=== PATIENT | female | born 1965 | race Caucasian/White ===

== ENCOUNTER 2016-12-07 12:47 | Emergency (ER) | payer MEDICAID | END 2016-12-07 20:20 | disposition home or self-care (01) | LOC: D.ER 12:47 | DX: S46.912A Strain of unspecified muscle, fascia and tendon at shoulder and upper arm level, left arm, initial encounter (principal); X58.XXXA Exposure to other specified factors, initial encounter; Y93.89 Activity, other specified; Y92.89 Other specified places as the place of occurrence of the external cause; F41.9 Anxiety disorder, unspecified; G89.29 Other chronic pain; I10 Essential (primary) hypertension ==

== ENCOUNTER 2017-08-25 19:41 | Observation (INO) | payer MEDICAID ==
[2017-08-25 20:16] LABS: BASOPHILS 0.4 % (0-2); HEMATOCRIT 40.8 % (36.0-48.0); IMMATURE GRANULOCYTES 0.4 % (0-5); LYMPHOCYTES 24.1 % (15-50); MCH 32.4 pg (26.0-34.0); MCHC 34.3 g/dL (31.0-37.0); MCV 94.4 fL (80.0-100.0); MEAN PLATELET VOLUME 8.6 fL (7.4-10.4); MONOCYTES 6.1 % (2-11); RBC 4.32 10x6/uL (4.00-5.40); RDW 12.5 % (11.5-14.5); WBC 11.3 10x3/uL (4.8-10.8)
[2017-08-25 20:26] LABS: PLATELET COUNT 268 10x3/uL (130-400)
[2017-08-25 20:30] LABS: ALBUMIN 3.2 g/dL (3.4-5.0); ALKALINE PHOSPHATASE 175 U/L (46-116); ALT (SGPT) 18 U/L (10-68); BILIRUBIN - TOTAL 0.19 mg/dL (0.2-1.3); CALC OSMOLALITY 254 mosm/kg (275-300); CALCIUM 8.5 mg/dL (8.5-10.1); CARBON DIOXIDE 23.5 mmol/L (21.0-32.0); CHLORIDE - SERUM 94 mmol/L (98-107); GLUCOSE 81 mg/dL (74-106); POTASSIUM - SERUM 4.4 mmol/L (3.5-5.1); PROTEIN - SERUM 7.2 g/dL (6.4-8.2); SODIUM 128 mmol/L (136-145); UREA NITROGEN 10 mg/dL (7-18); eGFR NON AFRICAN AMERICAN 62 mL/min (90-120)
[2017-08-25 20:40] LABS: CHOL - HDL RATIO 3.1 ratio (2.3-4.1); CHOLESTEROL, TOTAL 179 mg/dL (0-200); CKMB 1.1 U/L (0.0-3.6); CREATINE KINASE 58 UL (21-215); HDL CHOLESTEROL 58 mg/dL (32-96); LDL CHOLESTEROL 105 mg/dL (0-100); LDL-HDL RATIO 1.8 ratio (1.5-3.5); TRIGLYCERIDE 82 mg/dL (30-200)
[2017-08-25 20:42] LABS: TROPONIN-I < 0.017 ng/mL (0.000-0.060)
[2017-08-25] MEDS ORDERED: VALIUM5 MG PO (23:10)
[2017-08-25] MEDS ORDERED: NEURONTIN600 MG PO (23:11)
[2017-08-25] MEDS ORDERED: REMERON30 MG PO (23:11)
[2017-08-25] MEDS ORDERED: MOBIC7.5 MG PO (23:12)
[2017-08-25] MEDS ORDERED: PHENERGAN25 M1 (23:12)
[2017-08-25] MEDS ORDERED: ZYLOPRIM100 MG PO (23:13)
[2017-08-25] MEDS ORDERED: AMITRIPTYLINE100 MG PO (23:14)
[2017-08-25] MEDS ORDERED: BUSPAR10 MG PO (23:14)
[2017-08-25] MEDS ORDERED: HYSINGLA ER30 MG PO (23:15)
--- NOTE | 2017-08-25 23:33 | NUR ---
RECEIVED REPORT FROM SHERRILL IN ER, PT RECEIVED VIA WHEELCHAIR, TELEMTRY IS ON, IV-LAC, ADMISSION COMPLETE, MEDS REVIEWED, BED IS LOW, SRX2, CALL LIGHT IN REACH, WILL CONTINUE PLAN OF CARE
[2017-08-26] VITALS (7 sets, daily range): BP systolic 92–122; BP diastolic 72–75; BMI 28.9
--- NOTE | 2017-08-26 03:26 | NUR ---
PT SLEEPING, BED IS LOW,SRX2, CALL LIGHT IN REACH, WILL CONTINUE PLAN OF CARE
--- NOTE | 2017-08-26 07:21 | NUR ---
AM ROUNDS- PT IN BED, WITH EYES CLOSED, AROUSES EASILY. RESP EVEN AND REGULAR, PT DENIES ANY NEEDS AT THIS TIME. LT AC SL, BED LOW AND WHEELS LOCKED, BEDSIDE RAILS X2, CALL LIGHT IN REACH, NAD NOTED, WILL CONTINUE TO MONITOR.
--- NOTE | 2017-08-26 10:45 | NUR ---
PT CALLED INTO ROOM ASKING WHEN SHE WAS GOING TO GET HER HOME MEDICATIONS, AND THAT DR. GARNER HAD TOLD HER THIS AM THAT HE WAS GOING TO ORDER IV FLUIDS BECAUSE SHE WAS TOO DRY. INFOMRED PT THAT I HAD NO ORDERS TO GIVE HOME MEDICATIONS OR FOR IV FLUIDS THAT I WOULD CALL DR. GARNER AND CHECK TO SEE WHAT HE WANTED PT TO HAVE. 1050- CALLED DR. GARNER AND INFORMED HIM THAT PT WANTED TO KNOW IF HE WAS GOING TO START HOME MEDS AND GIVE HER IV FLUIDS. DR. GARNER STATED THAT HE WOULD PUT ORDERS IN.
--- NOTE | 2017-08-26 10:48 | NUR ---
ADMINISTERED 2MG OF MORPHINE FOR PAIN LEVEL OF 8/10. PT DENIES ANY OTHER NEEDS AT THIS TIME. CALL LIGHT IN REACH, NAD NOTED, WILL CONTINUE TO MONITOR.
--- NOTE | 2017-08-26 11:53 | NUR ---
IVFS HUNG AT THIS TIME. TO INFUSE AT 100ML/HR. PT STILL WANTING TO KNOW ABOUT HOME MEDS. INFORMED PT THAT DR. GARNER HAS NOT RESTARTED THEM YET, THAT HE ONLY ORDERED IVF AND NORCO QID. PT DENIES ANY OTHER NEEDS AT THIS TIME. CALL LIGHT IN REACH, ROSE SOUZA, WILL CONTINUE TO MONITOR.
--- NOTE | 2017-08-26 16:36 | NUR ---
NORCO GIVEN SCHEDULED. PT DENIES ANY OTHER NEEDS AT THIS TIME. CALL LIGHT IN REACH, NAD NOTED, WILL CONTINUE TO MONITOR.
--- NOTE | 2017-08-26 20:00 | NUR ---
PT RESTING IN BED. ALERT/ORIENTED. HAS BEEN WASHING SELF OFF AND IS NOW VERY TIRED. PIV TO LEFT A/C WITH NS @ 100ML/HR INFUSING. SR PER TELEMETRY. CPOC.
--- NOTE | 2017-08-26 20:42 | NUR ---
PT HAS BEEN UP AND WASHED HERSELF OFF IN BATHROOM. TELEMTRY IN PLACE.
[2017-08-27] VITALS: BP 103/61
--- NOTE | 2017-08-27 03:34 | NUR ---
PT HAS ACCIDENTALLY PULLED OUT HER IV. SHE IS ALSO WANTING SOMETHING FOR PAIN, BUT HER NORCO IS SCHEDULED QID. ABLE TO RESITE 22G TO LFA AND RESUME IVF OF NS @ 100ML/HR. ADMINISTERED MORPHINE 2MG SIVP FOR PAIN/DISCOMFORT. ENCOURAGED TO REST NOW. CALL LIGHT IN REACH.
[2017-08-27 04:00] VITALS: BP 129/91
--- NOTE | 2017-08-27 07:35 | NUR ---
RECEIVED PT IN BED EYES CLOSED RESP UNLABORED NAD NOTED
[2017-08-27 09:05] VITALS: BP 107/82
[2017-08-27 12:16] VITALS: BP 109/78
[2017-08-27 15:25] VITALS: BP 112/74
[2017-08-27 19:00] VITALS: BP 119/79
--- NOTE | 2017-08-27 19:10 | NUR ---
ROUNDING NOTE: PT AWAKE AND ALERT SITTING UP IN BED AT START OF SHIFT. PT HAS NS RUNNING AT 100CC/HR TO LEFT FOREARM IV SITE. ON TELE, PT REMAINS IN NSR. PT IS REQUESTING TO RECEIVE PAIN MEDS THROUGHOUT THE NIGHT. WE DISCUSSED HER CURRENT PRN PAIN MED ORDERS. WILL CONT TO MONITOR.
[2017-08-28 04:00] VITALS: BP 122/75
--- NOTE | 2017-08-28 07:16 | NUR ---
pt laying to left side sleeping arrouses easily denies needs will cont to monitor
--- NOTE | 2017-08-28 07:30 | NUR ---
PT W/ EMESIS X1 AFTER RECEIVING IV MORPHINE. PT GIVEN EMESIS BAGS AND CLEANED UP. SHE STATED THAT THE NAUSEA PASSED QUICKLY AND SHE FEELS MUCH BETTER NOW. WILL PASS ON TO DAY NURSE TO CONT TO MONITOR.
[2017-08-28 08:16] VITALS: BP 141/89
[2017-08-28] MEDS ORDERED: AMITRIPTYLINE100 MG PO (09:07)
[2017-08-28] MEDS ORDERED: PHENERGAN25 M1 PO (09:07)
[2017-08-28] MEDS ORDERED: VALIUM5 MG PO (09:07)
[2017-08-28] MEDS ORDERED: MOBIC7.5 MG PO (09:08)
[2017-08-28] MEDS ORDERED: HYSINGLA ER30 MG PO (09:08)
[2017-08-28] MEDS ORDERED: REMERON30 MG PO (09:08)
[2017-08-28] MEDS ORDERED: NEURONTIN600 MG PO (09:08)
[2017-08-28] MEDS ORDERED: BUSPAR10 MG PO (09:08)
[2017-08-28] MEDS ORDERED: ZYLOPRIM100 MG PO (09:08)
--- NOTE | 2017-08-28 11:11 | NUR ---
Patient Name: JUSTIN MILLAN Admission Status: ER Accout number: [id number] Admission Date: 08-25-2017 : 1965 Admission Diagnosis: Attending: DEBRA GARNER Current LOS: 3 Anticipated DC Date: 08-28-2017 Planned Disposition: Home Primary Insurance: MEDICAID [place] Discharge Planning Comments: * Is the patient Alert and Oriented? Yes 0 * How many steps to enter\exit or inside your home? RAMP 0 * PCP DR. CARVAJAL 0 * Pharmacy [facility] [address] * Preadmission Environment Home Alone 0 * ADLs Independent 0 * Equipment Rolling Walker 0 * Other Equipment UNKNOWN MEDICAL EQUIPMENT PROVIDER 0 * List name and contact numbers for known caregivers / representatives who currently or will assist patient after discharge: JUSTIN CHAMBERS, MOTHER, 0 * Community resources currently utilized None 0 * Please name any agencies selected above. NONE 0 * Additional services required to return to the preadmission environment? No 0 * Can the patient safely return to the preadmission environment? Yes 0 * Has this patient been hospitalized within the prior 30 days at any hospital? No 0 CM SPOKE TO APPAREL RENTAL CLERK WHO INFORMED CM THAT PT IS HAVING TROUBLE CONTACTING FAMILY FOR TRANSPORTATION HOME. CM MET WITH PT IN ROOM TO DISCUSS DISCHARGE PLANNING AND NEEDS. PT REPORTS LIVING AT HOME INDEPENDENTLY AND ALONE. PT HAS ROLLING WALKER AT HOME THAT SHE USES OCCAISIONALLY, HER MEDICAL EQUIPMENT PROVIDER IS UNKNOWN, PT REPORTS HER MOTHER HAS THOSE NUMBERS FOR HER. PT HAD A CANE BUT IT WAS LOST AT [facility]. PT HAS NOT DISCUSSED GETTING ANOTHER ONE WITH HER DOCTOR. PT HAS NO OUTSIDE SERVICES ASSISTING IN THE HOME. CM DISCUSSED AVAILABILITY OF HOME HEALTH, REHAB SERVICES AND MEDICAL EQUIPMENT. PT DENIES DISCHARGE NEEDS OTHER THAN WANTING CM TO CALL DR. CARVAJAL AND ASK HIM TO KEEP HER ANOTHER NIGHT. CM INFORMED PT THAT THE DOCTOR WAS CONTACTED TODAY AND HE PROVIDED THE DISCHARGE ORDERS. PT ASKED CM TO PROVIDE HER PAIN MEDICATIONS TO TAKE HOME. CM INFORMED PT THAT IS NOT A SERVICE THE HOSPITAL PROVIDES AND PT WILL NEED TO VEHICLE MAINTENANCE SUPERVISOR HER PRESCRITIONS FROM HER PHARMACY. PT REPORTS BEING ON SOCIAL SECURITY DISABILITY AND SHE CANNOT REACH HER MOTHER, THAT THE PHONE RINGS AND RINGS. PT WAS TRYING TO USE THE ROOM PHONE; CM ADVISED THAT THE ROOM PHONE IS NOT EQUIPPED TO DIAL LONG DISTANCE AND OFFERED TO CALL FROM PHONE. PT ACCEPTED, CM CALLED PT'S MOTHER, JUSTIN CHAMBERS, , LEFT MESSAGE ASKING FOR JUSTIN TO CALL PT IN ROOM PT REPORTS HER PERSONAL I-PHONE IS NOT CHARGED, OR TO CALL CM BACK. CM DISCUSSED TRANSPORTATION BY [employer]. PT REPORTS SHE HAS NEVER TAKEN THE BUS AND DOES NOT WANT TO SIT FOR HOURS ON THE BUS. PT WANTS THE HOSPITAL TO PROVIDE A TAXI FOR HER HAS BEEN DONE IN THE PAST. CM ASKED WHEN THIS WAS DONE, PT REPORTS [facility] GAVE HER A TAXI HOME. CM EXPLAINED THAT THE HOSPITAL HAS VERY LIMITED RESOUCES AND WOULD NOT BE PROVIDING TAXI TRANSPORT. PT REPORTS KNOWING TAXI TRANSPORTATION TO BE EXPENSIVE. CM ASKED PT ABOUT HER PERSONAL SUPPORT SYSTEMS, PT REPORTS HAVING THREE FRIENDS THAT SHE DOES NOT HAVE ACCESS TO THE NUMBERS HERE BECAUSE HER PHONE IS NOT CHARGED. PT THEN REPORTED THAT HER PHONE CUT OFF OPERATOR SCORER AT HOME IS BROKE BUT SHE HAS ANOTHER PHONE BUT WILL HAVE TO BUY MINUTES TO USE IT. CM ASKED PT IS SHE IS QUALIFIED TO USE THE MEDICAID TRANSPORTATION, PT STATES THAT SHE IS. PT KNOWS IT TAKES 48 HOUR NOTICE TO ARRANGE [email or web address] BUS AND WOULD LIKE CM TO CALL HER MOTHER FIRST AND IF CM CANNOT REACH HER MOTHER, THEN CALL [facility] TO SEE IF THEY CAN TAKE HER HOME. CM WILL WAIT A FEW MINUTES FOR RETURN CALL FROM PT'S MOTHER; IF NO CALL IS RECEIVED, CM WILL CALL MEDICAID TRANSPORT TO ARRANGE TRANSPORTATION HOME. Physician Office Rep: Lenin Marx
[2017-08-28 11:45] VITALS: BP 151/85
--- NOTE | 2017-08-28 11:59 | NUR ---
PT SISTER CALLED AND SAID THAT SHE IS UNABLE TO PICK PT UP BUT SHE WILL BE CALLING AROUND TO FIND SOMEONE TO COME PICK PT UP ADN TAKE HER HOME
--- NOTE | 2017-08-28 13:46 | NUR ---
Patient Name: JUSTIN MILLAN Encounter No: [id number] : 1965 Primary Insurance: MEDICAID [place] Anticipated DC Date: 08-28-2017 Planned Disposition: Home DCP follow-up note: CM RECEIVED TELEPHONE MESSAGE FROM PERSON REPORTING TO BE PT'S SISTER WHO WILL CALL PT IN ROOM TO ARRANGE TRANSPORTATION HOME. CM MET WITH PT WHO REPORTS SHE HAS A SISTER IN [place] AND A SISTER IN [place]; PT REPORTS SHE HAS TALKED TO HER MOTHER AND PT'S OLDER SISTER WILL BE PICKING HER UP TODAY. PT DENIES NEED OF [place] MEDICAID TRANSPORTATION OR OTHER ASSISTANCE AT THIS TIME. CM LEFT PT CM CONTACT INFORMATION. ASSISTANT SCIENTIST NURSE NOTIFIED. Lenin Marx, CASE MANAGEMENT
--- NOTE | 2017-08-28 13:53 | NUR ---
PT STILL WAITING ON A RIDE TO COME PICK HER UP
--- NOTE | 2017-08-28 14:42 | NUR ---
PT STATES HER SISTER WILL BE HERE TO PICK HER UP IN 30 MINS-1 HOUR. WENT OVER DC PAPERWORK WITH PT PT VERBALIZES UNDERSTANDING. DC PIV WITH CATH TIP INTACT. DC TELE AND RETURNED TO TAX EVALUATOR. PT WILL CALL WHEN SHE IS READY TO COME BACK
--- NOTE | 2017-08-28 15:47 | NUR ---
PT SAYS HER RIDE IS DOWN STAIRS WAITING FOR HER. VOLUNTEER CAME UP TO WHEEL PT DOWN STAIRS. I DIDNT CALL FOR THEM TO COME GET HER, PT STATES THAT HER SISTER IS DOWNSTAIRS . VOLUNTEER WHEELED PT OUT TO FRONT ENTRANCE.
== END 2017-08-28 16:28 | disposition home or self-care (01) ==
LOC: D.ER 19:41 → OBSVTIME 22:12 → D.M2 22:12
PROVIDERS: Family Medicine; ADMIT Legal Medicine
DX: K52.9 Noninfective gastroenteritis and colitis, unspecified (principal); R07.9 Chest pain, unspecified; Z86.73 Personal history of transient ischemic attack (TIA), and cerebral infarction without residual deficits; F41.9 Anxiety disorder, unspecified; F32.9 Major depressive disorder, single episode, unspecified; Z72.0 Tobacco use

== ENCOUNTER 2017-10-09 16:22 | Emergency (ER) | payer MEDICAID ==
[2017-08-26 04:20] VITALS: BMI 28.9
[~2017-10-09 16:22] MED LIST: AMITRIPTYLINE100 MG PO; BUSPAR10 MG PO; HYSINGLA ER30 MG PO; MOBIC7.5 MG PO; NEURONTIN600 MG PO; PHENERGAN25 M1; PHENERGAN25 M1 PO; REMERON30 MG PO; VALIUM5 MG PO; ZYLOPRIM100 MG PO
[2017-10-09 17:08] LABS: BASOPHILS 0.2 % (0-2); EOSINOPHILS 0.6 % (0-7); HEMATOCRIT 35.3 % (36.0-48.0); HEMOGLOBIN 12.2 g/dL (12-16); IMMATURE GRANULOCYTES 0.2 % (0-5); LYMPHOCYTES 21.6 % (15-50); MCH 32.5 pg (26.0-34.0); MCHC 34.6 g/dL (31.0-37.0); MCV 94.1 fL (80.0-100.0); MEAN PLATELET VOLUME 8.6 fL (7.4-10.4); NEUTROPHILS 70.4 % (40-80); PLATELET COUNT 242 10x3/uL (130-400); RBC 3.75 10x6/uL (4.00-5.40); RDW 12.5 % (11.5-14.5); WBC 6.4 10x3/uL (4.8-10.8)
[2017-10-09 17:38] LABS: ALBUMIN 2.8 g/dL (3.4-5.0); ALKALINE PHOSPHATASE 166 U/L (46-116); ALT (SGPT) 17 U/L (10-68); BILIRUBIN - TOTAL 0.17 mg/dL (0.2-1.3); CALC OSMOLALITY 254 mosm/kg (275-300); CALCIUM 8.2 mg/dL (8.5-10.1); CARBON DIOXIDE 26.9 mmol/L (21.0-32.0); CHLORIDE - SERUM 96 mmol/L (98-107); CREATININE - SERUM 0.8 mg/dL (0.6-1.3); GLUCOSE 86 mg/dL (74-106); POTASSIUM - SERUM 4.8 mmol/L (3.5-5.1); PROTEIN - SERUM 6.3 g/dL (6.4-8.2); SODIUM 128 mmol/L (136-145); UREA NITROGEN 11 mg/dL (7-18); eGFR NON AFRICAN AMERICAN 80 mL/min (90-120)
== END 2017-10-09 18:19 | disposition home or self-care (01) ==
LOC: D.ER 16:22
PROVIDERS: Emergency Medicine
DX: R10.9 Unspecified abdominal pain (principal); Z91.81 History of falling; F17.200 Nicotine dependence, unspecified, uncomplicated

== ENCOUNTER 2017-10-14 10:40 | Emergency (ER) | payer MEDICAID ==
[2017-08-26 04:20] VITALS: BMI 28.9
[2017-10-14 13:10] LABS: BASOPHILS 0.3 % (0-2); EOSINOPHILS 0.5 % (0-7); IMMATURE GRANULOCYTES 0.3 % (0-5); LYMPHOCYTES 26.9 % (15-50); MCH 32.9 pg (26.0-34.0); MCHC 34.1 g/dL (31.0-37.0); MCV 96.5 fL (80.0-100.0); MEAN PLATELET VOLUME 8.6 fL (7.4-10.4); MONOCYTES 5.6 % (2-11); NEUTROPHILS 66.4 % (40-80); PLATELET COUNT 273 10x3/uL (130-400); RBC 4.25 10x6/uL (4.00-5.40); RDW 12.5 % (11.5-14.5); WBC 7.4 10x3/uL (4.8-10.8)
[2017-10-14 13:32] LABS: ALBUMIN 3.3 g/dL (3.4-5.0); ALKALINE PHOSPHATASE 175 U/L (46-116); ALT (SGPT) 19 U/L (10-68); BILIRUBIN - TOTAL 0.32 mg/dL (0.2-1.3); CALC OSMOLALITY 263 mosm/kg (275-300); CALCIUM 8.9 mg/dL (8.5-10.1); CHLORIDE - SERUM 96 mmol/L (98-107); CREATININE - SERUM 0.9 mg/dL (0.6-1.3); GLUCOSE 97 mg/dL (74-106); POTASSIUM - SERUM 4.8 mmol/L (3.5-5.1); PROTEIN - SERUM 7.4 g/dL (6.4-8.2); SODIUM 132 mmol/L (136-145); UREA NITROGEN 10 mg/dL (7-18); eGFR NON AFRICAN AMERICAN 70 mL/min (90-120)
[2017-10-14 13:37] LABS: TROPONIN-I < 0.017 ng/mL (0.000-0.060)
== END 2017-10-14 16:52 | disposition home or self-care (01) ==
LOC: D.ER 10:40
PROVIDERS: Physician Assistant
DX: M54.12 Radiculopathy, cervical region (principal); R07.9 Chest pain, unspecified; R11.0 Nausea; R05 Cough; F17.200 Nicotine dependence, unspecified, uncomplicated

== ENCOUNTER 2017-10-15 17:47 | Inpatient (IN) | payer MEDICAID ==
[~2017-10-15] VITALS: Ht 172.7 cm; Wt 90.5 kg
[2017-10-15 18:45] LABS: APPEARANCE CLEAR (CLEAR); BILIRUBIN NEGATIVE (NEGATIVE); COLOR YELLOW (YELLOW); GLUCOSE NEGATIVE (NEGATIVE); KETONE NEGATIVE (NEGATIVE); NITRITE NEGATIVE (NEGATIVE); PROTEIN NEGATIVE (NEGATIVE); UROBILINOGEN NORMAL (NORMAL)
[2017-10-15 19:37] LABS: BASOPHILS 0.2 % (0-2); EOSINOPHILS 0.5 % (0-7); HEMATOCRIT 37.8 % (36.0-48.0); IMMATURE GRANULOCYTES 0.1 % (0-5); LYMPHOCYTES 24.7 % (15-50); MCH 32.8 pg (26.0-34.0); MCHC 34.4 g/dL (31.0-37.0); MCV 95.5 fL (80.0-100.0); MEAN PLATELET VOLUME 8.7 fL (7.4-10.4); MONOCYTES 5.3 % (2-11); NEUTROPHILS 69.2 % (40-80); PLATELET COUNT 257 10x3/uL (130-400); RBC 3.96 10x6/uL (4.00-5.40); RDW 12.2 % (11.5-14.5); WBC 8.1 10x3/uL (4.8-10.8)
[2017-10-15 19:56] LABS: INR 0.96 (0.85-1.17); PROTIME 12.7 SECONDS (11.6-15.0)
[2017-10-15 21:17] LABS: ALBUMIN 3.2 g/dL (3.4-5.0); BILIRUBIN - TOTAL 0.25 mg/dL (0.2-1.3); CALCIUM 8.5 mg/dL (8.5-10.1); CARBON DIOXIDE 20.9 mmol/L (21.0-32.0); PROTEIN - SERUM 6.6 g/dL (6.4-8.2)
[2017-10-15 21:18] LABS: ANION GAP 17.9 mmol/L (8-16); POTASSIUM - SERUM 3.8 mmol/L (3.5-5.1)
--- NOTE | 2017-10-15 23:15 | NUR ---
PT ARRIVES TO THE FLOOR VIA WC FROM ER ACCOMPANIED BY ER NURSE. ASSISTED IN TO BED. PT C/O NAUSEA ON ARRIVAL. VSS, AFEBRILE. BOWEL SOUNDS HYPOACTIVE X4. PT REPORTS PASSING FLATUS TODAY. LEFT WRIST WITH NS @ 100 ML/HR INFUSING THROUGH 20 GA ANGIOCATH. SITE CDI AND APPEARS WNL. ADMISSION ASSESSMENT AND HISTORY COMPLETED. MEDICATIONS RECONCILED AT THE BEDSIDE. POC DISCUSSED WITH PT, SHE HAS VERBALIZED UNDERSTANDING. INSTRUCTED ON NPO STATUS. PT WITHOUT NGT FROM ER. PT STATES 2 NURSES TRIED SEVERAL TIMES IN THE ER TO PLACE NGT WITHOUT SUCCESS. REPORTS HER NOSE IS TENDER AND BLEEDING AND DOES NOT WANT TO ALLOW ANOTHER ATTEMPT AT THIS TIME. COMPLIED WITH THE PT'S WISHES. SENIOR CLINICAL DATA COORDINATOR NOTIFIED TO COME OVER RIDE MEDICATIONS. WILL CONT TO FOLLOW WITH ORDERS FOR ENEMAS.
[2017-10-15 23:41] VITALS: BMI 28.4
--- NOTE | 2017-10-16 00:30 | NUR ---
PT GIVEN 1500 ML WARM SOAP SUDS ENEMA. PT ABLE TO HOLD ALL 1500 ML IN FOR 15 MIN. ASSISTED TO BR - CLEAR BROWN TINGED FLUID EXPELLED. PT STATES PASSING FLATUS AT HOME INSULATION PACKER AND WHILE IN THE BATHROOM. PT GIVEN MAG CITRATE AND DULCOLAX TABS ORDERED. WILL MONITOR.
[2017-10-16 00:45] VITALS: BP 99/64
--- NOTE | 2017-10-16 02:50 | NUR ---
PT ARRIVES TO FLOOR VIA STRETCHER ACCOMPANIED BY NURSE. ADMISSION ASSESSMENT AND HISTORY OBTAINED. VS, AFEBRILE. RESP EVEN UNLABORED. O2 2LPM NC, SATS 94%. PT IS ALERT AND ORIENTED X4. C/O GENERALIZED WEAKNESS. INSTRUCTED TO CALL FOR NURSING STAFF BEFORE GETTING OOB AND VERBALIZES UNDERSTANDING. VALERA TO BSD, DRAINS ADEQUATE AMOUNT CLEAR YELLOW URINE. IV TO LEFT HAND WITH NS @ 75 ML/HR. NO NEEDS VOICED. DENIES ANY C/O PAIN. CALL LIGHT PLACED WITHIN REACH. WILL CONT TO MONITOR.
[2017-10-16 05:09] LABS: BASOPHILS 0.2 % (0-2); EOSINOPHILS 0.5 % (0-7); HEMATOCRIT 38.7 % (36.0-48.0); IMMATURE GRANULOCYTES 0.3 % (0-5); LYMPHOCYTES 24.8 % (15-50); MCH 32.2 pg (26.0-34.0); MCHC 33.6 g/dL (31.0-37.0); MCV 95.8 fL (80.0-100.0); MEAN PLATELET VOLUME 8.7 fL (7.4-10.4); MONOCYTES 6.2 % (2-11); PLATELET COUNT 293 10x3/uL (130-400); RBC 4.04 10x6/uL (4.00-5.40); RDW 12.3 % (11.5-14.5)
[2017-10-16 05:11] VITALS: BP 87/60
[2017-10-16 05:18] LABS: CALCIUM 8.7 mg/dL (8.5-10.1); CHLORIDE - SERUM 91 mmol/L (98-107); CREATININE - SERUM 0.8 mg/dL (0.6-1.3); SODIUM 127 mmol/L (136-145); UREA NITROGEN 7 mg/dL (7-18); eGFR NON AFRICAN AMERICAN 80 mL/min (90-120)
[2017-10-16 05:23] LABS: CALC OSMOLALITY 252 mosm/kg (275-300); CARBON DIOXIDE 27.4 mmol/L (21.0-32.0); GLUCOSE 101 mg/dL (74-106); POTASSIUM - SERUM 4.8 mmol/L (3.5-5.1)
--- NOTE | 2017-10-16 05:49 | NUR ---
PT C/O PAIN TO BLE, STATES HER LEGS ARE ACHING AND CRAMPING. STATES SHE TAKES PAIN MEDS AT HOME FOR THIS. PT BP 87/60 - RECHECKED MANUALLY AND BP 90/58. EXPLAINED TO PT HER BP WAS TOO LOW FOR IV MORPHINE, PT CRYING. REPEATEDLY STATES "I AM SO HUNGRY". EXPLAINED TO PT SHE IS NPO D/T POSSIBLE ILEUS. PT STATES "I HAVENT EATEN ANYTHING IN DAYS". EXPLAINED TO PT THAT SHE HAD TO BE SEEN BY HER PHYSICIAN BEFORE I CAN GIVE HER ANYTHING ELSE TO EAT. PT VERBALIZED UNDERSTANDING.
--- NOTE | 2017-10-16 07:15 | NUR ---
REPORT RECEIVED. PT REQUESTING TO EAT. EXPLAINED TO PT THAT THE MD WILL HAVE TO ROUND AND SEE HER PRIOR TO HER BEING ABLE TO EAT. VERBALIZED UNDERSTANDING. RR EVEN AND UNLABORED, WILL CTM.
[2017-10-16 08:15] VITALS: BP 197/65
--- NOTE | 2017-10-16 10:30 | NUR ---
PT REQUESTING PRN PAIN MEDS. WILL GIVE AND CTM. PT ALSO REQUESTING NICOTINE PATCH. WILL CALL PHYSICAN FOR ORDERS.
[2017-10-16 12:14] VITALS: BP 96/43
[2017-10-16 14:27] VITALS: Ht 172.7 cm; Wt 90.5 kg
[2017-10-16 16:02] VITALS: BP 90/57
--- NOTE | 2017-10-16 19:23 | NUR ---
PT IN BED RESTING QUEITLY WITH EYES CLOSED. BREATHING EVEN AND UNLABORED. BED RAILS UP X2. BED IN LOW POSITION, CALL LIGHT WITHIN REACH.
--- NOTE | 2017-10-16 21:03 | NUR ---
PT C/O PAIN AND REQUESTED PAIN MEDICATION. PRN MORPHINE 4 MG GIVEN IV PER EMAR. PHENEGRAN ALSO GIVEN WITH MORPHINE PT STATES SHE OFTEN GETS AN UPSET STOMACH WHEN SHE GETS IT.
[2017-10-16 21:09] VITALS: BP 108/69
--- NOTE | 2017-10-17 01:24 | NUR ---
PT C/O PAIN. PRN MORPHINE GIVEN IV PER ORDER. BREATHING EVEN AND UNLABORED. WILL CTM.
[2017-10-17 01:59] VITALS: BP 104/71
[2017-10-17 05:54] VITALS: BP 110/72
--- NOTE | 2017-10-17 06:10 | NUR ---
PT C/O PAIN. PRN MORPHINE GIVEN ALONG WITH PRN ZOFRAN PT STATES THE MORPHINE OFTEN MAKES HER UPSET AT HER STOMACH. BREATHING EVEN AND UNLABORED. DENIES ANY OTHER NEEDS AT THIS TIME. BED IN LOW POSITION, CALL LIGHT WITHIN REACH. WILL CTM.
[2017-10-17 06:15] LABS: BASOPHILS 0.7 % (0-2); EOSINOPHILS 3.3 % (0-7); HEMATOCRIT 41.3 % (36.0-48.0); HEMOGLOBIN 13.4 g/dL (12-16); IMMATURE GRANULOCYTES 0.2 % (0-5); LYMPHOCYTES 29.2 % (15-50); MCH 32.4 pg (26.0-34.0); MCHC 32.4 g/dL (31.0-37.0); MEAN PLATELET VOLUME 8.8 fL (7.4-10.4); MONOCYTES 9.8 % (2-11); NEUTROPHILS 56.8 % (40-80); PLATELET COUNT 263 10x3/uL (130-400); RBC 4.13 10x6/uL (4.00-5.40); RDW 12.6 % (11.5-14.5); WBC 4.5 10x3/uL (4.8-10.8)
[2017-10-17 06:30] LABS: ALBUMIN 3.1 g/dL (3.4-5.0); BILIRUBIN - TOTAL 0.3 mg/dL (0.2-1.3); POTASSIUM - SERUM 4.7 mmol/L (3.5-5.1)
[2017-10-17 06:34] LABS: ANION GAP 7.4 mmol/L (8-16); CARBON DIOXIDE 35.3 mmol/L (21.0-32.0)
--- NOTE | 2017-10-17 07:15 | NUR ---
MORNING ROUNDS MADE. PATIENT LAYING IN BED WITH EYES CLOSED, BUT AROUSED EASILY WHEN SPOKEN TO. COMPLAINS OF "BEDSORES" HURTING. ASSESSED BOTTOM AND SHE HAS ONE SMALL RED AREA NEAR RIGHT GLUTEAL FOLD AND ONE SMALL GRAYISH/BROWN AREA BELOW LEFT GLUTEAL FOLD. COMPLAINS OF BACK AND STOMACH PAIN. ADVISED SHE ISN'T DUE FOR MORPHINE UNTIL 0900, SHE VOICED UNDERSTANDING. WILL CONTINUE TO MONITOR. CPOC.
--- NOTE | 2017-10-17 07:30 | NUR ---
AM ROUNDS. PT RESTING QUIELTY, RR EVEN AND UNLABORED. PT DENIES NEEDS AT THIS TIME.
[2017-10-17 07:55] VITALS: BP 94/58
--- NOTE | 2017-10-17 08:45 | NUR ---
PATIENT LAYING IN BED. MEDS GIVEN WITHOUT PROBLEMS. MORPHINE GIVEN. EXPLAINED TO PATIENT SHE ISN'T DUE FOR ZOFRAN UNTIL NOON. SHE WAS INSISTANT THAT SHE GOT IT EVERY TIME THE MORPHINE WAS GIVEN. ADVISED IF THE MORPHINE IS GIVEN Q6H, THEN SHE COULD HAVE IT TOGETHER. PATIENT WASN'T HAPPY ABOUT IT, BUT TOOK THE MORPHINE ALONE. ADVISED I WOULD BRING THE ZOFRAN WHEN IT'S DUE. SHE VOICED UNDERSTANDING. CPOC.
--- NOTE | 2017-10-17 09:15 | NUR ---
PATIENT LAYING IN BED WITH EYES CLOSED. OPEN EYES WHEN I SPOKE TO HER. STATES HER PAIN IN STILL A "9" ON 1-10 SCALE. WILL CONTINUE TO MONITOR. CPOC.
--- NOTE | 2017-10-17 11:40 | NUR ---
PATIENT LAYING IN BED WITH EYES CLOSED. CHEST RISES AND FALLS EQUALLY. SIDE RAILS UP, BED IN LOWEST POSITION, CALL LIGHT IN REACH. CPOC.
[2017-10-17 12:21] VITALS: BP 112/71
--- NOTE | 2017-10-17 12:35 | NUR ---
PATIENT LAYING IN BED WITH EYES CLOSED. SHE SPOKE WHEN SPOKEN TO. C/O PAIN IN LOWER BACK AND LEGS, "9" ON A SCALE OF 0-10. MORPHINE AND ZOFRAN GIVEN IV. WILL CONTINUE TO MONITOR. CPOC.
--- NOTE | 2017-10-17 14:26 | NUR ---
PATIENT SITTING UP IN BED, TALKING ON TELEPHONE. NO NEEDS AT THIS TIME. CPOC.
--- NOTE | 2017-10-17 15:13 | NUR ---
PATIENT LAYING IN BED. C/O HEADACHE AND BACK PAIN, "8" ON 0-10 SCALE. ADVISED SHE IS DUE FOR MORPHINE @ 1530 AND I CAN BRING IT TO HER. VOICED UNDERSTANDING. NO OTHER NEEDS AT THIS TIME. CPOC.
--- NOTE | 2017-10-17 15:17 | NUR ---
PATIENT ALSO COMPLAINS OF NAUSEA. ADVISED I WILL BRING SOME PHENERGAN ORDERED. VOICED UNDERSTANDING.
[2017-10-17 15:25] VITALS: BP 98/75
--- NOTE | 2017-10-17 15:29 | NUR ---
PATIENT SITTING UP IN BED. MORPHINE IVP AND PHENERGAN PO GIVEN. WILL CONTINUE TO MONITOR. CPOC.
--- NOTE | 2017-10-17 16:00 | NUR ---
PATIENT RESTING IN BED. STATES SHE FEELS LIKE SHE DIDN'T GET ANY MORPHINE AT AT ALL AND IS STILL HURTING, "9" ON 0-10 SCALE. ADVISED SHE RECEIVED 4MG OF MORPHINE LIKE SHE HAS EVERY THREE HOURS TODAY. SHE VOICED UNDERSTANDING AND STATES, "I BELIEVE YOU GAVE IT TO ME, I'M JUST HURTING SO BAD...". STATES THE PHENERGAN HAS HELPED HER NAUSEA. WILL CONTINUE TO MONITOR. CPOC.
--- NOTE | 2017-10-17 18:07 | NUR ---
SITTING IN BED WATCHING TV. STATES HER PAIN IS A "9" ON A 0-10 SCALE, STATES "MY BACK AND LEGS HURT SO BAD". WILL CONTINUE TO MONITOR. MEDS GIVEN WITHOUT PROBLEMS. CPOC.
--- NOTE | 2017-10-17 18:32 | NUR ---
LAYINGING IN BED WATCHING TV. STATES PAIN IS A LITTLE BETTER, "8" ON 0-10 SCALE. WILL CONTINUE TO MONITOR. CPOC.
--- NOTE | 2017-10-17 19:05 | NUR ---
END OF SHIFT ROUNDS MADE. INFORMED PATIENT THAT I WILL BE LEAVING SOON. DENIES ANY NEEDS AT THIS TIME. WILL GIVE REPORT TO NUCLEAR POWER PLANT ENGINEER.
--- NOTE | 2017-10-17 19:54 | NUR ---
PT IN BED RESTING QUIETLY WITH EYES CLOSED. BREATHING EVEN AND UNLABORED. BED IN LOW POSITION, CALL LIGHT WITHIN REACH. WILL CTM.
--- NOTE | 2017-10-17 21:24 | NUR ---
PT REFUSED HER ENEMA.
[2017-10-17 21:43] VITALS: BP 123/75
[2017-10-18 01:21] VITALS: BP 120/79
[2017-10-18 05:18] VITALS: BP 106/68
[2017-10-18 06:14] LABS: ALBUMIN 3.2 g/dL (3.4-5.0); ALKALINE PHOSPHATASE 244 U/L (46-116); ALT (SGPT) 74 U/L (10-68); CALCIUM 8.6 mg/dL (8.5-10.1); CARBON DIOXIDE 32.8 mmol/L (21.0-32.0); CHLORIDE - SERUM 94 mmol/L (98-107); CREATININE - SERUM 0.8 mg/dL (0.6-1.3); GLUCOSE 110 mg/dL (74-106); PROTEIN - SERUM 6.7 g/dL (6.4-8.2); SODIUM 132 mmol/L (136-145); eGFR NON AFRICAN AMERICAN 80 mL/min (90-120)
[2017-10-18 06:17] LABS: BASOPHILS 0.2 % (0-2); CALC OSMOLALITY 262 mosm/kg (275-300); HEMATOCRIT 39.8 % (36.0-48.0); HEMOGLOBIN 12.6 g/dL (12-16); IMMATURE GRANULOCYTES 0.2 % (0-5); LYMPHOCYTES 15.1 % (15-50); MCH 32.3 pg (26.0-34.0); MCHC 31.7 g/dL (31.0-37.0); MONOCYTES 4.9 % (2-11); NEUTROPHILS 78.6 % (40-80); PLATELET COUNT 229 10x3/uL (130-400); RDW 12.5 % (11.5-14.5); UREA NITROGEN 4 mg/dL (7-18)
[2017-10-18 06:24] LABS: MCV 102.1 fL (80.0-100.0); WBC 5.9 10x3/uL (4.8-10.8)
--- NOTE | 2017-10-18 07:49 | NUR ---
AM ROUNDING- RECEIVED REPORT FROM ENVIRONMENTAL TEST TECHNICIAN NURSE KIRSTEN. PT IS CURRENTLY LAYING IN BED ON RIGHT SIDE WITH EYES CLOSED RESTING. PT WAKES UP AND STATES "CAN I HAVE MY PAIN MEDICATION, I AM HURTING". I INFORMED PT I WILL LOOK TO SEE WHAT SHE HAS ORDERED. ON 02 AT 2L VIA NC. NO MONITOR. IV SEEN TO LEFT WRIST WITH D5LR RUNNING AT 100CC. VALERA CATHETER SEEN WITH YELLOW URINE. WILL CONTINUE TO MONITOR AND CONTINUE WITH PLAN OF CARE.
[2017-10-18 08:00] VITALS: BP 110/79
--- NOTE | 2017-10-18 09:57 | NUR ---
UPON DOING PTS MORNING MEDICATION AND DAILY SHIFT ASSESSMENT, PT REQUESTED SOMETHING FOR PAIN (MORPHINE). I INFORMED PT THAT SHE IS HERE FOR CONSTIPATION (PER FOOD AND BEVERAGE CONTROLLER NURSE PT HAS BEEN REFUSING ALL ENEMAS) THAT PAIN MEDICATION SUCH MORPHINE CAUSES CONSTIPATION DUE TO IT BEING OPIOID AND THAT SHE NEEDS TO BE LETTING STAFF (NURSE) DUE ENEMA ORDERED. PT STATES TO ME SHE WANTED TO WAIT TO DO ENEMA UNTIL SHE HAS SOME "REAL FOOD". PT ALSO REQUESTING PHENERGAN AND VALIUM AT TIME. WILL CONTINUE TO MONITOR.
--- NOTE | 2017-10-18 10:04 | NUR ---
SCDS PLACED ON PT.
[2017-10-18 12:00] VITALS: BP 125/78
--- NOTE | 2017-10-18 12:31 | NUR ---
PHARMACY CALLED AND PHARMACY STATES THEY DO NOT HAVE NON-FORMULARY THAT WAS ORDERED. ABOUT TO GIVE PT SUPPOSITORY ORDERED. WILL CONTINUE TO MONITOR.
--- NOTE | 2017-10-18 12:44 | NUR ---
UPON GIVING PT VALIUM ( REQUESTED FOR ANXIETY) AND ORDERED DUCOLAX SUPPOSITORY, PT HAD BEEN INCONTINENT OF BOWEL (BEFORE SUPPOSITORY). CLEANED PT UP AND WENT AHEAD AND GAVE SUPPOSITORY ORDERED. WILL CONTINUE TO MONITOR.
--- NOTE | 2017-10-18 14:20 | NUR ---
UPON WALKING THROUGH WHEELER, PT STATES SHE NEEDS ASSISTANCE. PT IS STANDING BY SIDE OF BED STATING SHE HAD BAD DREAM AND GOT OOB. PT IS INCONTINENT OF BOWEL (SECOND BOWEL MOVEMENT TODAY). PT ASSISTED TO BATHROOM. PT INSTRUCTED TO PULL BATHROOM EMERGENCY STRING SO STAFF CAN ASSIST HER BACK TO BED. PT AGREES.
--- NOTE | 2017-10-18 14:35 | NUR ---
PT HAD ANOTHER BM (3 TOTAL ON SHIFT TODAY). BM APPEARD LOOSE/RUNNY. PT IS CURRENTLY REQUESTING MORPHINE FOR PAIN (HEADACHE). WILL TX ORDERED.
[2017-10-18 16:00] VITALS: BP 118/64
--- NOTE | 2017-10-18 17:42 | NUR ---
PT IS CURRENTLY SITTING UP IN BED WITH EYES OPEN RESTING. PT IS WONDERING WHEN SHE WILL BE ABLE TO EAT REGULAR FOOD. THIS NURSE INFORMED PT THAT DOCTOR WILL HAVE TO ORDER REGULAR FOOD. WILL CONTINUE TO MONITOR.
--- NOTE | 2017-10-18 20:12 | NUR ---
PT IN BED RESTING QUIETLY. BREATHING EVEN AND UNLABORED. DENIES ANY NEEDS AT THIS TIME. WILL CTM.
[2017-10-18 21:40] VITALS: BP 137/86
[2017-10-19] VITALS: BP 130/86
[2017-10-19 04:16] VITALS: BP 108/63; BP 110/54
--- NOTE | 2017-10-19 05:31 | NUR ---
PT IN BED RESTING QUIETLY WITH EYES CLOSE. BREATHING EVEN AND UNLABORED. BED IN LOW POSITION, CALL LIGHT WITHIN REACH. WILL CTM.
--- NOTE | 2017-10-19 07:49 | NUR ---
MORNING ROUNDS MADE. PATIENT LAYING IN BED. C/O PAIN "9-10" ON 0-10 SCALE. ADVISED I WILL PAGE HER DOCTOR TO HAVE SEE IF HER MORPHINE CAN BE RESTARTED. STATES SHE IS "HAVING SOME REALLY BAD PAIN". ADVISED SHE HAS VALIUM IF SHE IS AGGITATED SHE CAN HAVE SOME. STATES SHE WOULD LIKE TO HAVE IT. VALIUM GIVEN. WILL CONTINUE TO MONITOR. CPOC.
[2017-10-19 08:00] VITALS: BP 145/73
--- NOTE | 2017-10-19 08:25 | NUR ---
DR. PASCUAL MILLER. WILL ASK IF WE CAN CONTINUE PTS MORPHINE 4MG Q3H.
--- NOTE | 2017-10-19 09:57 | NUR ---
PATIENT SITTING UP IN BED, WATCHING TV. MORNING MEDS GIVEN WITH PROBLEMS. STATES SHE IS STILL HURTING, "10" ON A 0-[address] GARNER AGAIN. WILL CONTINUE TO MONITOR. CPOC.
--- NOTE | 2017-10-19 10:04 | NUR ---
SPOKE WITH DR. GARNER. OK TO CONTINUE MORPHINE 4MG Q3H FOR NOW. STATES HE WILL RE-EVALUATE WHEN ROUNDS ARE MADE. REPEATED BACK TO MD AND HE APPROVED.
--- NOTE | 2017-10-19 10:46 | NUR ---
PATIENT LAYING IN BED, WATCHING TV. C/O PAIN, "9" ON 0-10 SCALE. ADVISED I SPOKE WITH DR. GARNER AND HE HAS RESTARTED THE MORPHINE. PT VOICED UNDERSTANDING. 4MG MORPHINE GIVEN IVP. WILL CONTINUE TO MONITOR. CPOC.
--- NOTE | 2017-10-19 11:56 | NUR ---
REASSESSED PATIENT PAIN, PAIN IS 6/10 AT THIS TIME. PATIENT DENIES ANY FURTHER NEEDS. CPOC
[2017-10-19 12:00] VITALS: BP 118/87
--- NOTE | 2017-10-19 15:20 | NUR ---
PATIENT LAYING IN BED, WATCHING TV. C/O PAIN "7" ON 0-10 SCALE. ADVISED THE DOCTOR HAS STOPPED HER MORPHINE. PATIENT WAS UPSET. EXPLAINED THEY DID START HER ON 1-2 NORCO 10/325 Q6H. SHOEMAKER CUSTOM CAME IN AND EXPLAINED TO PT IN DETAIL THAT THEY STOPPED THE MORPHINE BECAUSE SHE IS PROBABLY GOING HOME TOMORROW AND THEY CAN'T SEND HER HOME ON MORPHINE. SHE HAS AGREED TO TRY 2 NORCO 10-325 Q6H. WILL CONTINUE TO MONITOR. CPOC.
[2017-10-19 16:00] VITALS: BP 108/77
--- NOTE | 2017-10-19 18:25 | NUR ---
PATIENT SITTING UP IN BED, EATING A BANANA. VALERA REMOVED WITHOUT COMPLAINT. STATES SHE NEEDS SOMETHING TO TAKE "THE EDGE OFF". ADVISED SHE HAS VALIUM AVAILABLE BIDP. STATES SHE WOULD LIKE SOME. NO OTHER NEEDS OR REQUESTS AT THIS TIME. COPC.
[2017-10-19 21:22] VITALS: BP 104/65
--- NOTE | 2017-10-19 22:09 | NUR ---
INITIAL ROUNDS COMPLETEDA T 1910 HRS. PT STATTING HER IV PAIN MEDS WERE TAKEN AWAY AND TAHT THE PILLS ARE NOT WORKING WELL. INFORMED PT NEXT DOSE DUE AT 215 HRS. AND SHE COULD NOT GO HOME ON IV PAIN MEDS. ASSESSMENT COMPLETED AT 2020 HRS. VSS. IV TO L WRIST WITH D5LR AT 100CC/HR. IV PATENT. O2 4LNC. LUNGS ESSENTIALLY CTA. MEPILEX DRESSING TO LOWER L BUTTOCK CLEAN, DRY AND INTACT. INFORMED PT SINCE VALERA REMOVED AT 1800 SHE NEEDED TO URINATE BY 0200. PT STATED UNDERSTANDING. PM MEDS GIVEN PER ORDERS INCLUDING NORCO X2. PT CURRETNLY WATCHING TV. NO DISTRESS NOTED. SR UP X2, CALL LIGHT WITHIN REACH.
--- NOTE | 2017-10-20 00:19 | NUR ---
PT AWAKE; STATES PAIN 8/10. DENIES NEED OR URGE TO URINATE. REINFORCED SHE NEEDS TO URINATE BY 0200. WILL CONTINUE TO MONITOR.
[2017-10-20 01:32] VITALS: BP 98/51
--- NOTE | 2017-10-20 02:10 | NUR ---
PT CONTINUED TO DENY NEED TO URINATE AT 0140 HRS. BLADDER DISTENDED. BLADDER SCANNER DENOTED GREATER THAN 995CC OF URINE. PT REFUSED BEDPAN OR TO USE COMMODE. KEPT STATING SHE DID NOT NEED TO PEE AND ASKED IF I USED THE SCANNER COREECTLY. INFORMED PT THAT SCANNER WAS USED CORRENCTLY. PT THAN BEGAN TO ARGUE ABOUT IN AND OUT CATH ASKING WHY WE WANTED TO HURT HER. INFORMED PT THAT WE DID NOT WANT TO HURT HER BUT HER BLADDER NEEDED TO BE DRAINIED OTHERWISE IT COULD BURST. IN AND OUT CATH DONE WITH 1125CC RETURN. PT THEN STATED SHE HAS HAD THIS PROBLEM BEFORE AND WHEN SHE CAME IN SHE HAD OVER 1300CC OF URINE THAT DRAINED OUT AND SHE DIDN'T UNDERSTAND WHY I DRAINED HER AND ONLY GOT 1125 CC OUT. ZOFRAN 4MG SIVP GIVEN AFTER IN AND OUT FOR C/O NAUSEA. WILL CONTINUE TO MONITOR. SR UP X2, CALL LIGHT WITHIN REACH.
--- NOTE | 2017-10-20 04:06 | NUR ---
PT RESTING WITH EYES CLOSED. RESP EVEN AND REGULAR. SR UP X2, CALL LIGHT WITHIN REACH.
[2017-10-20 04:27] VITALS: BP 106/61
--- NOTE | 2017-10-20 06:02 | NUR ---
VSS THROUGHTOUT NIGHT. PT STATED NORCO NOT CONTROLLING PAIN. PT CURRENTLY RESTING WITH EYES CLOSED. RESP EVEN AND REGULAR. NEEDS MET; WILL CONTINUE TO MONTIOR.
--- NOTE | 2017-10-20 06:50 | NUR ---
MORNING ROUNDS MADE. PATIENT LAYING IN BED WITH EYES CLOSED. CHEST RISES AND FALLS EQUALLY BILAT. WILL CONTINUE TO MONITOR. CPOC.
--- NOTE | 2017-10-20 08:52 | NUR ---
MORNING MEDS GIVEN. PATIENT LAYING IN BED, BREAKFAST EATEN. C/O PAIN "9" ON 0-10 SCALE. WILL PULL NORCO. STATES NO BM YESTERDAY OR THIS MORNING. ACTIVE BS IN ALL 4 QUADS. STATES SHE FEELS BLOATED, BUT STOMACH IS SOFT AND NON-TENDER. WILL CONTINUE TO MONITOR. CPOC.
[2017-10-20 09:06] VITALS: BP 138/81
--- NOTE | 2017-10-20 11:11 | NUR ---
PATIENT LAYING IN BED. DA QURESHI CAME IN. SPOKE WITH PT ABOUT THE IMPORTANCE IN GETTING OUT OF BED AND MOVING AROUND TO HELP DECREASE HER PAIN AND TO HELP HER TAKE BM. ASSISTED PATIENT TO BATHROOM SO SHE COULD TRY TO URINATE. DROP HAMMER PILE DRIVER OPERATOR PALPATED HER BLADDER AND FELT IT TO BE A LITTLE DISTENDED AND WANTED PATIENT TO TRY TO URINATE. PATIENT WAS NOT ABLE TO URINATE, BUT HAD SMALL BM. DROP HAMMER PILE DRIVER OPERATOR INSTRUCTED TO HOLD THE SUPPOSITORY SINCE SHE WAS ABLE TO HAVE BM. D/T PATIENT C/O EXTREME PAIN IN LEGS AND FEET, DROP HAMMER PILE DRIVER OPERATOR AGREED TO LET PATIENT HAVE THE MORPHINE TODAY, ONLY IF SHE AGREES TO GET UP AND EAT AT BEDSIDE FOR EACH MEAL AND TO GET UP AND TRY TO USE THE BATHROOM EVERY 2 HOURS. PATIENT VOICED UNDERSTANDING AND AGREED TO THE ABOVE. OK PER DROP HAMMER PILE DRIVER OPERATOR TO GIVE FIRST DOSE OF MORPHINE AT NOON SINCE SHE HAD NORCO AROUND 0800. WILL CONTINUE TO MONITOR AND ASSIST IN GETTING UP. CPOC.
[2017-10-20 12:00] VITALS: BP 113/69
--- NOTE | 2017-10-20 12:28 | NUR ---
CALLED DR. GUZMAN'S OFFICE AND LEFT MESSAGE THAT A URINARY CONSULT IS NEEDED FOR URINARY RETENSION WITH ANSWERING SERVICE. STATES SHE WILL SEND PAGE TO DR. GUZMAN.
--- NOTE | 2017-10-20 14:38 | NUR ---
PATIENT SITTING UP IN BED. ASSISTED TO BATHROOM, SHE IS ATTEMPTING TO URINATE AND TAKE A BM. STATES SHE WAS ABLE TO PASS SOME LIQUID STOOL. SHE HAD A PRETTY STRONG STREAM LASTING FOR SEVERAL SECONDS MULTIPLE TIMES. STATES SHE FEELS HER BLADDER HAS EMPTIED. ASSISTED BACK TO BED. WILL CONTINUE TO MONITOR. CPOC.
--- NOTE | 2017-10-20 15:17 | NUR ---
PT LYING BACK IN BED RESTING QUIETLY. RR NONLABORED. PT DENIES ANY CURRENT PAIN OR NEEDS AT THIS TIME. CL IN REACH.
[2017-10-20 16:00] VITALS: BP 119/78
--- NOTE | 2017-10-20 17:55 | NUR ---
PATIENT SITTING ON SIDE OF BED EATING DINNER. SHE C/O PAIN, "7", ON A 0-10 SCALE. BEFORE MORPHINE WAS GIVEN, ASSESSED IV. IT APPEARD TO BE DAMP UNDER THE CLEAR DRESSING. TAPE/DRESSING REMOVED FROM WRIST. AREA CLEANED WITH ALCOHOL. NEW DRESSING APPLIED, DATED, AND SIGNED. PT STATES THAT IT FEELS MUCH BETTER AND NUT SIFTER. MEDS GIVEN. INFORMED PATIENT AFTER SHE FINISHES DINNER I WILL ASSIST HER TO THE RESTROOM FOR HER TO TRY TO URINATE/BM. VOICED UNDERSTANDING. NO NEEDS AT THIS TIME. CALL LIGHT IN REACH. CPOC.
--- NOTE | 2017-10-20 18:30 | NUR ---
END OF SHIFT ROUNDS MADE. PATIENT SITTING ON SIDE OF BED FINISHING DINNER. INSTRUCTED HER TO USE CALL LIGHT WHEN SHE WAS DONE EATING AND SOMEONE WILL HELP HER TO THE RESTROOM. VOICED UNDERSTANDING. BED IN LOWEST POSITION AND LOCKED, CALL LIGHT IN REACH. CPOC.
[2017-10-20 19:00] VITALS: BP 115/76
--- NOTE | 2017-10-20 22:42 | NUR ---
INITIAL ROUNDS COMPLETED AT 1920 HRS. NO DISTRESS NOTED. ASSESSMENT COMPLETED AT 2000 HRS. VSS. IV TO R WRIST WITH D5LR AT 100CC/HR. IV PATENT. LUNGS DIMINSIHED IN BASES BILAT. O2 4LNC. DRESSING TO LOWER L BUTTOCKS CLEAN, DRY AND INTACT. REINFORCED TO PT SHE NEEDS TO GET UP TO BR EVERY 3-4 HRS DURING SHIFT. PT STATED UNDERSTANDIONG. PT UP TO BR AT 2100 HRS. VOIDED APPROX 275CC OF CLEAR, YELLOW RINE. BATH DONE, BED LINENS CHANGED. PM MEDS GIVEN. PT CURRETNLY WATCHING TV. WILL CONTINUE TO MONITOR. SR UP X2, CALL LIGHT WITHIN REACH.
[2017-10-21 00:29] VITALS: BP 114/70
--- NOTE | 2017-10-21 00:30 | NUR ---
PT RESTING WITH EYES CLOSED. RESP EVEN AND REGULAR. SR UP X2, CALL LIGHT WITHIN REACH.
--- NOTE | 2017-10-21 02:21 | NUR ---
PT UP TO BR WITH ASSIST. VOIDED 900CC OF URINE. BACK TO BED WITH ASSIST. MORPHINE 1MG SIVP GIVEN FOR C.O CHRONIC BACK AND LEG PAIN. WILL CONTINUE TO MONITOR. SR UP X2, CALL LIGHT WITHIN REACH.
--- NOTE | 2017-10-21 04:48 | NUR ---
PT RESTING WITH EYES CLOSED. RESP EVEN AND REGULAR. SR UP X2, CALL LIGHT WITHIN REACH.
[2017-10-21 05:03] VITALS: BP 110/76
--- NOTE | 2017-10-21 06:38 | NUR ---
VSS THROUGHUT NIGHT. PT STATES ALWAYS HAVE CHRONIC PAIN. VOIDED X3 DURING SHIFT. NEEDS MET; WILL CONTINUE TO MONITOR.
--- NOTE | 2017-10-21 07:33 | NUR ---
MORNING ROUNDS MADE. PATIENT LAYING IN BED, WATCHING TV. C/O PAIN "8" ON A 0-10 SCALE. 1MG MORPHINE IVP GIVEN. ALSO C/O HER CHEST HURTING AND FEELS SHE HAS TO "WORK" TO TAKE A DEEP BREATH. STATES "I'M AFRAID I'M GETTING PNEUMONIA". LUNGS SOUND CLEAR IN INSPIRATION AND EXPIRATION, DEMINISHED BLL. ADVISED I WILL INFORM MD. HASN'T HAD A BM SINCE YESTERDAY AFTERNOON, AT THAT TIME IT WAS SMALL AND LIQUID. STATES SHE HAS BEEN VOIDING WITHOUT PROBLEMS. WILL CONTINUE TO EAT ON SIDE OF BED AND GET UP EVERY 2-3 HOURS AND GO TO THE BATHROOM. DENIES ANY NEEDS AT THIS TIME. CPOC.
[2017-10-21 08:14] VITALS: BP 124/86
--- NOTE | 2017-10-21 08:54 | NUR ---
PATIENT LAYING IN BED. STATES HER CHEST IS HURTING AND WHEN SHE COUGHS IT MAKES HER HEAD HURT. OBSERVED HER COUGH A FEW TIMES, DRY/NON-PRODUCTIVE. WILL REPORT TO MD. JOSEPH.
--- NOTE | 2017-10-21 09:16 | NUR ---
PATIENT TRANSPORTED TO RADIOLOGY VIA BY [facility].
--- NOTE | 2017-10-21 11:22 | NUR ---
PATIENT LAYING IN BED, WATCHING TV. STATES SHE WOULD LIKE TO KNOW WHAT HER CHEST XR SHOWED BECAUSE HER CHEST IS HURTING AND SHE'S "HAVING A HARD TIME BREATHING". LOOKED UP REPORT AND INFORMED HER THERE IS NO PNEUMONIA, JUST AN EXACERVATION OF COPD. STATES SHE DIDN'T KNOW SHE HAD COPD. ANSWERED ALL HER QUESTIONS AND ADVISED PREDNISONE WAS ORDERED TO BE STARTED TO HELP WITH THAT. STATES SHE DOESN'T WANT TO GO HOME ON O2 AND SHE DOESN'T KNOW IF SHE CAN BE DC'D TODAY BECAUSE SHE'S SCARED SHE WON'T BE ABLE TO BREATHE AT HOME. ADVISED SOMEONE WILL ASSESS HER BEFORE SHE LEAVES. STATES SHE IS DUE FOR HER MORPHINE AND DA QURESHI PROMISED HER SHE COULD HAVE ONE MORE DOSE BEFORE SHE STARTED THE HYDROCODONE. INFORMED HER THE MAR SHOWS THE MORPHONE HAS ALREADY BEEN DC'D. PATIENT BECAME TEARFUL AND ASKED IF THERE WAS ANYTHING I COULD DO TO GET HER ONE MORE DOSE. ADVISED I WOULD CALL [facility] AND WOULD LET HER KNOW WHAT I FOUND OUT. PATIENT ALSO REQUESTED HER VALIUM FOR ANXIETY. PER MAR, SHE CAN HAVE SOME. ADVISED OF SUCH AND WILL BRING IT TO HER. CPOC.
[2017-10-21 12:05] VITALS: BP 107/74
--- NOTE | 2017-10-21 12:15 | NUR ---
SPOKE WITH DA QURESHI. SHE OK'D A 1 TIME DOSE OF MORPHINE 1MG. GIVEN TO PATIENT. ASSISTED HER IN SITTING ON SIDE OF BED TO EAT LUNCH. NO OTHER NEEDS AT THIS TIME. CPOC.
--- NOTE | 2017-10-21 13:33 | NUR ---
PATIENT RESTING AT THIS TIME, NAD NOTED. CHEST RISES AND FALLS EQUALLY. CPOC
--- NOTE | 2017-10-21 14:54 | NUR ---
PATIENT BEING TRANSFERED VIA WC FOR PFT BY [facility].
--- NOTE | 2017-10-21 16:36 | NUR ---
PATIENT LAYING IN BED, WATCHING TV. C/O PAIN, "8" ON 0-10 SCALE. NORCO GIVEN. STATES HER CHEST HURTS AND SHE HAD A HARD TIME DOING THE "BREATHING TEST" AND THAT SHE GOT A BREATHING TREATMENT WHILE SHE WAS THERE AND CAN "BREATHE A LITTLE BETTER". STATES SHE WAS ABLE TO VOID 350 ML AND SHE HAD A SMALL LOOSE BM WELL. NO REQUESTS AT THIS TIME. CPOC.
[2017-10-21 19:00] VITALS: BP 125/79
--- NOTE | 2017-10-21 19:15 | NUR ---
EVENING ROUNDS MADE. PATIENT INFORMED ME SHE HAS HAD 2 "ACCIDENTS" TODAY WHILE SHE HAS TRIED TO GET TO THE BATHROOM. STATES SHE "JUST ALL OF A SUDDEN HAS TO PEE" AND STATES SHE HAS NEVER HAD THIS URGENCY BEFORE. SHE DOES FEEL LIKE THE BREATHING TREATMENT SHE HAD AFTER HER PFT HAS HELP HER BREATHING SOME. HER BED IS IN LOWEST POSTITION AND SHE HAS HER CALL LIGHT. CPOC.
--- NOTE | 2017-10-21 22:26 | NUR ---
HS MEDS GIVEN WITH FRESH ICE WATER, VALIUM 5 MG TAB GIVEN AT PT REQUEST. WILL CONT TO MONITOR.
--- NOTE | 2017-10-22 00:05 | NUR ---
CHICKEN NOODLE SOUP GIVEN AT PT REQUEST. NOROCO 2 TABS ALSO GIVEN AT PT REQUEST FOR C/O PAIN.
[2017-10-22 01:21] VITALS: BP 131/82
--- NOTE | 2017-10-22 03:35 | NUR ---
RESTING WITH EYES CLOSED, RESPERATIONS EVEN, NO S/S DISTRESS NOTED.
[2017-10-22 04:00] VITALS: BP 150/96
--- NOTE | 2017-10-22 07:55 | NUR ---
AM ROUNDS - PT IS IN BED AND AWAKE AT THIS TIME. PT IS ON 4L O2 VIA NC. IV TO LEFT WRIST, D5LR AT 100CC/HR. BED AT LOWEST POSITION. CALL BUSTAMANTE IN USE/REACH. SIDE RAILS UP X2. WILL CONTINUE TO MONITOR
[2017-10-22 08:42] VITALS: BP 156/91
[2017-10-22 12:09] VITALS: BP 128/87
[2017-10-22 16:29] VITALS: BP 145/92
[2017-10-22] MEDS ORDERED: NICODERM C1 PATCH .3 TRANSDERM (16:39)
[2017-10-22] MEDS ORDERED: PROAIR HFA8.5 GM INH (16:39)
[2017-10-22] MEDS ORDERED: COLACE100 MG PO (16:40)
[2017-10-22] MEDS ORDERED: MOBIC7.5 MG PO (16:40)
[2017-10-22] MEDS ORDERED: DULCOLAX10 MG/SUPP RC (16:40)
[2017-10-22] MEDS ORDERED: PREDNISONE20 MG PO (16:41)
[2017-10-22] MEDS ORDERED: MIRALAX17 GM PO (16:41)
[2017-10-22] MEDS ORDERED: VITAMIN B-121000 MCG PO (16:41)
--- NOTE | 2017-10-22 17:12 | NUR ---
Patient Name: JUSTIN MILLAN Admission Status: ER Accout number: [id number] Admission Date: 10-16-2017 : 1965 Admission Diagnosis:DRUG INDUCED CONSTIPATION Attending: DEBRA GARNER Current LOS: 6 Anticipated DC Date: 10-22-2017 Planned Disposition: Home Primary Insurance: MEDICAID [place] Discharge Planning Comments: * Is the patient Alert and Oriented? Yes 0 * How many steps to enter\exit or inside your home? RAMPC 0 * PCP DR. GARNER 0 * Pharmacy [facility] [address] 0 * Preadmission Environment Home Alone 0 * ADLs Independent 0 * Equipment Cane Rolling Walker 0 * Other Equipment NO MEDICAL EQUIPMENT PROVIDER 0 * List name and contact numbers for known caregivers / representatives who currently or will assist patient after discharge: JUSTIN CHAMBERS, MOTHER, 0 * Community resources currently utilized None 0 * Please name any agencies selected above. NONE 0 * Additional services required to return to the preadmission environment? No 0 * Can the patient safely return to the preadmission environment? Yes 0 * Has this patient been hospitalized within the prior 30 days at any hospital? No 0 CM RECEIVED PHONE MESSAGE FROM PERSON IDENTIFYING SELF PT'S MOTHER, REPORTING PT NEEDS CORRECTION PLACEMENT OR HOME HEALTH. CM MET WITH PT IN ROOM TO DISCUSS DISCHARGE PLANNING AND NEEDS. PT REPORTS LIVING AT HOME INDEPENDENTLY AND ALONE. PT HAS ALL NEEDED MEDICAL EQUIPMENT WITH NO PROVIDER AND NO OUTSIDE SERVICES ASSISTING IN THE HOME. CM DISCUSSED AVAILABILITY OF HOME HEALTH, REHAB SERVICES AND MEDICAL EQUIPMENT. PT WOULD LIKE HOME HEALTH IF THE DOCTOR WILL ORDER IT, PT HAS NO PREFERENCE ON HOME HEALTH PROVIDER, CHOICE SIGNED. PT REPORTS SHE PLANS TO PAY FOR A CAB TO PICK HER UP FOR DISCHARGE HOME. PT DECLINES CORRECTION PLACEMENT FOR PANTRY ATTENDANT CARE OR REHAB SERVICES. CM RECEIVED REQUEST TO SEE PT IN ROOM, PT UPSET THAT DR. GARNER'S NURSE WILL DISCHARGE HER HOME TODAY. PT REPORTS SHE DOES NOT WANT TO LEAVE AND WANTS CM TO ADVOCATE FOR HER TO STAY ANOTHER NIGHT. PT REPORTS SHE CANNOT GET TO THE PHARMACY AND GET HOME SHE ONLY HAS ENOUGH MONEY FOR ONE TRIP HOME VIA [employer]; PT REPORTS NO ONE, FRIEND OR FAMILY TO ASSIST WITH TRANSPORTATION. CM SPOKE TO DR. GARNER'S NURSE, PT WILL DISCHARGE HOME TODAY, PT HAS NO MEDICAL REASON TO STAY IN HOSPITAL AND NO SKILLED NEED FOR HOME HEALTH. CM CALLED CM SHACTOR HELPER JOSEPH MCCURDY, RECEIVED AUTHORIZATION FOR $11 [employer] TRANSPORT TO [facility] FROM [facility] FOR PT. CM EXPLAINED TO PT THAT THIS CANNOT BE DONE ON CONTINUAL BASIS DUE TO LIMITED RESOURCES; CM EXPLAINED THAT CM EDUCATED PT ON SETTING FUNDS ASIDE FOR EMERGENCY AND TO WORK ON DEVELOPMENT OF PERSONAL SUPPORT SYSTEM OF HER OWN DURING LAST VISIT WHEN PT HAS THIS SAME EXACT PROBLEM WITH TRANSPORTATION. PT REPORTS UNDERSTANDING. CM CALLED [employer], SPOKE TO GLYNN, SECURED VOUCHER FOR PT'S ONE WAY TRANSPORT FROM HOSPITAL TO [facility] FOR $11.00. PT NOTIFIED, DENIES FURTHER NEEDS. BEDSIDE NURSE NOTIFIED AND WILL CALL [employer] AT [phone] WHEN PT IS READY TO SOLDER LEVELER PRINTED CIRCUIT BOARDS. Virologist: Lenin Marx
--- NOTE | 2017-10-22 18:28 | NUR ---
D/C - IV TO LEFT WRIST, CATH TIP INTACT, 2X2 DRESSING APPLIED AND SECURED WITH TAPE. PT TOLERATED WELL. PT LEFT FLOOR VIA WHEELCHAIR WITH LICENSING SPECIALIST. WRITTEN AND VERBAL D/C INSTUCTIONS GIVEN TO PT. WILL D/C
== END 2017-10-22 18:33 | disposition home or self-care (01) | DRG 392 ==
LOC: D.ER 17:47 → OBSVTIME 21:14 → D.M2 21:14
PROVIDERS: Emergency Medicine; Nurse Practitioner Family; ADMIT Legal Medicine
DX: K59.03 Drug induced constipation (principal); T40.2X5A Adverse effect of other opioids, initial encounter; F17.210 Nicotine dependence, cigarettes, uncomplicated; I10 Essential (primary) hypertension; R33.9 Retention of urine, unspecified; M54.9 Dorsalgia, unspecified; Z86.73 Personal history of transient ischemic attack (TIA), and cerebral infarction without residual deficits; D72.819 Decreased white blood cell count, unspecified

== ENCOUNTER 2017-11-12 20:11 | Emergency (ER) | payer MEDICAID ==
[2017-10-16 14:27] VITALS: BMI 28.4
[~2017-11-12 20:11] MED LIST changes: +COLACE100 MG PO; +DULCOLAX10 MG/SUPP RC; +MIRALAX17 GM PO; +NICODERM C1 PATCH .3 TRANSDERM; +PREDNISONE20 MG PO; +PROAIR HFA8.5 GM INH; +VITAMIN B-121000 MCG PO
== END 2017-11-12 23:50 | disposition home or self-care (01) ==
LOC: D.ER 20:11
DX: S80.01XA Contusion of right knee, initial encounter (principal); W01.0XXA Fall on same level from slipping, tripping and stumbling without subsequent striking against object, initial encounter; Y93.89 Activity, other specified; Y92.019 Unspecified place in single-family (private) house as the place of occurrence of the external cause; S40.011A Contusion of right shoulder, initial encounter; Z86.73 Personal history of transient ischemic attack (TIA), and cerebral infarction without residual deficits; J44.9 Chronic obstructive pulmonary disease, unspecified

== ENCOUNTER 2017-11-13 10:57 | Emergency (ER) | payer MEDICAID ==
[2017-10-16 14:27] VITALS: BMI 28.4
== END 2017-11-13 13:39 | disposition home or self-care (01) ==
LOC: D.ER 10:57
DX: M25.569 Pain in unspecified knee (principal); J44.9 Chronic obstructive pulmonary disease, unspecified; Z86.73 Personal history of transient ischemic attack (TIA), and cerebral infarction without residual deficits; F17.200 Nicotine dependence, unspecified, uncomplicated

== ENCOUNTER 2017-11-17 12:19 | Emergency (ER) | payer MEDICAID ==
[2017-10-16 14:27] VITALS: BMI 28.4
== END 2017-11-17 14:38 | disposition home or self-care (01) ==
LOC: D.ER 12:19
DX: M25.552 Pain in left hip (principal); S43.402A Unspecified sprain of left shoulder joint, initial encounter; W19.XXXA Unspecified fall, initial encounter; Y93.89 Activity, other specified; Y92.039 Unspecified place in apartment as the place of occurrence of the external cause; J44.9 Chronic obstructive pulmonary disease, unspecified; Z86.73 Personal history of transient ischemic attack (TIA), and cerebral infarction without residual deficits

== ENCOUNTER 2017-11-20 16:49 | Emergency (ER) | payer MEDICAID ==
[2017-10-16 14:27] VITALS: BMI 28.4
== END 2017-11-20 17:33 | disposition home or self-care (01) ==
LOC: D.ER 16:49
DX: B86 Scabies (principal); G89.4 Chronic pain syndrome; Z76.5 Malingerer [conscious simulation]; J44.9 Chronic obstructive pulmonary disease, unspecified; Z86.73 Personal history of transient ischemic attack (TIA), and cerebral infarction without residual deficits

== ENCOUNTER 2017-11-23 16:15 | Emergency (ER) | payer MEDICAID ==
[2017-10-16 14:27] VITALS: BMI 28.4
== END 2017-11-23 19:29 | disposition home or self-care (01) ==
LOC: D.ER 16:15
DX: M54.5 Low back pain (principal); M62.838 Other muscle spasm; B86 Scabies; F41.9 Anxiety disorder, unspecified; F17.200 Nicotine dependence, unspecified, uncomplicated

== ENCOUNTER 2017-12-01 16:56 | Emergency (ER) | payer MEDICAID ==
[2017-10-16 14:27] VITALS: BMI 28.4
== END 2017-12-01 19:59 | disposition home or self-care (01) ==
LOC: D.ER 16:56
DX: S70.02XA Contusion of left hip, initial encounter (principal); S50.02XA Contusion of left elbow, initial encounter; W01.0XXA Fall on same level from slipping, tripping and stumbling without subsequent striking against object, initial encounter; Y93.89 Activity, other specified; Y92.019 Unspecified place in single-family (private) house as the place of occurrence of the external cause; S39.012A Strain of muscle, fascia and tendon of lower back, initial encounter; M51.36 Other intervertebral disc degeneration, lumbar region; J44.9 Chronic obstructive pulmonary disease, unspecified; Z86.73 Personal history of transient ischemic attack (TIA), and cerebral infarction without residual deficits; F17.200 Nicotine dependence, unspecified, uncomplicated

== ENCOUNTER 2017-12-02 17:55 | Emergency (ER) | payer MEDICAID ==
[2017-10-16 14:27] VITALS: BMI 28.4
[2017-12-02 19:26] LABS: BASOPHILS 0.2 % (0-2); EOSINOPHILS 1.1 % (0-7); HEMATOCRIT 38.1 % (36.0-48.0); IMMATURE GRANULOCYTES 0.2 % (0-5); LYMPHOCYTES 23.2 % (15-50); MCH 32.9 pg (26.0-34.0); MCHC 34.1 g/dL (31.0-37.0); MCV 96.5 fL (80.0-100.0); NEUTROPHILS 69.3 % (40-80); PLATELET COUNT 234 10x3/uL (130-400); RBC 3.95 10x6/uL (4.00-5.40); RDW 12.3 % (11.5-14.5); WBC 9.4 10x3/uL (4.8-10.8)
[2017-12-02 19:40] LABS: ALBUMIN 3.1 g/dL (3.4-5.0); ALKALINE PHOSPHATASE 144 U/L (46-116); ALT (SGPT) 23 U/L (10-68); CALC OSMOLALITY 264 mosm/kg (275-300); CALCIUM 8.4 mg/dL (8.5-10.1); CARBON DIOXIDE 24.8 mmol/L (21.0-32.0); CHLORIDE - SERUM 98 mmol/L (98-107); GLUCOSE 87 mg/dL (74-106); POTASSIUM - SERUM 4.5 mmol/L (3.5-5.1); PROTEIN - SERUM 6.5 g/dL (6.4-8.2); SODIUM 133 mmol/L (136-145); UREA NITROGEN 13 mg/dL (7-18); eGFR NON AFRICAN AMERICAN 62 mL/min (90-120)
[2017-12-02 19:52] LABS: CKMB 0.9 U/L (0.0-3.6); CREATINE KINASE 49 UL (21-215); MAGNESIUM - SERUM 2.6 mg/dL (1.8-2.4); THYROID STIMULATING HORMONE 0.97 uIU/mL (0.36-3.74)
[2017-12-02 19:53] LABS: TROPONIN-I < 0.017 ng/mL (0.000-0.060)
== END 2017-12-02 21:30 | disposition home or self-care (01) ==
LOC: D.ER 17:55
PROVIDERS: Family Medicine
DX: B37.0 Candidal stomatitis (principal); R50.9 Fever, unspecified; J20.9 Acute bronchitis, unspecified; J44.9 Chronic obstructive pulmonary disease, unspecified; Z86.73 Personal history of transient ischemic attack (TIA), and cerebral infarction without residual deficits; F17.200 Nicotine dependence, unspecified, uncomplicated

== ENCOUNTER 2017-12-09 14:31 | Emergency (ER) | payer MEDICAID ==
[2017-10-16 14:27] VITALS: BMI 28.4
== END 2017-12-09 17:07 | disposition home or self-care (01) ==
LOC: D.ER 14:31
DX: M54.5 Low back pain (principal); M25.552 Pain in left hip; W01.0XXA Fall on same level from slipping, tripping and stumbling without subsequent striking against object, initial encounter; Y93.89 Activity, other specified; Y92.019 Unspecified place in single-family (private) house as the place of occurrence of the external cause; F17.200 Nicotine dependence, unspecified, uncomplicated; J44.9 Chronic obstructive pulmonary disease, unspecified; Z86.73 Personal history of transient ischemic attack (TIA), and cerebral infarction without residual deficits

== ENCOUNTER 2017-12-09 23:42 | Emergency (ER) | payer MEDICAID ==
[2017-10-16 14:27] VITALS: BMI 28.4
[2017-12-10 00:54] LABS: HEMATOCRIT 37.1 % (36.0-48.0); HEMOGLOBIN 12.7 g/dL (12-16); LYMPHOCYTES 24.6 % (15-50); MCH 32.4 pg (26.0-34.0); MCHC 34.2 g/dL (31.0-37.0); MCV 94.6 fL (80.0-100.0); PLATELET COUNT 279 10x3/uL (130-400); RBC 3.92 10x6/uL (4.00-5.40); RDW 12.5 % (11.5-14.5); WBC 9.9 10x3/uL (4.8-10.8)
[2017-12-10 01:03] LABS: ALBUMIN 3.1 g/dL (3.4-5.0); ALKALINE PHOSPHATASE 144 U/L (46-116); ALT (SGPT) 24 U/L (10-68); CALC OSMOLALITY 261 mosm/kg (275-300); CARBON DIOXIDE 27.6 mmol/L (21.0-32.0); CHLORIDE - SERUM 94 mmol/L (98-107); CREATININE - SERUM 0.9 mg/dL (0.6-1.3); GLUCOSE 91 mg/dL (74-106); POTASSIUM - SERUM 4.2 mmol/L (3.5-5.1); PROTEIN - SERUM 6.7 g/dL (6.4-8.2); SODIUM 130 mmol/L (136-145); UREA NITROGEN 14 mg/dL (7-18); eGFR NON AFRICAN AMERICAN 70 mL/min (90-120)
[2017-12-10 01:15] LABS: CKMB 1.3 U/L (0.0-3.6); CREATINE KINASE 80 UL (21-215); TROPONIN-I 0.017 ng/mL (0.000-0.060)
== END 2017-12-10 01:29 | disposition home or self-care (01) ==
LOC: D.ER 23:42
PROVIDERS: Physician Assistant Medical
DX: K21.9 Gastro-esophageal reflux disease without esophagitis (principal); J44.9 Chronic obstructive pulmonary disease, unspecified; Z86.73 Personal history of transient ischemic attack (TIA), and cerebral infarction without residual deficits; F17.200 Nicotine dependence, unspecified, uncomplicated

== ENCOUNTER 2017-12-12 20:40 | Emergency (ER) | payer MEDICAID ==
[2017-10-16 14:27] VITALS: BMI 28.4
[2017-12-12 22:03] LABS: BASOPHILS 0.4 % (0-2); EOSINOPHILS 1.4 % (0-7); HEMATOCRIT 37.8 % (36.0-48.0); HEMOGLOBIN 12.8 g/dL (12-16); IMMATURE GRANULOCYTES 0.3 % (0-5); MCH 32.5 pg (26.0-34.0); MCHC 33.9 g/dL (31.0-37.0); MCV 95.9 fL (80.0-100.0); MEAN PLATELET VOLUME 8.7 fL (7.4-10.4); MONOCYTES 4.7 % (2-11); NEUTROPHILS 56.2 % (40-80); PLATELET COUNT 272 10x3/uL (130-400); RBC 3.94 10x6/uL (4.00-5.40); RDW 12.6 % (11.5-14.5)
[2017-12-12 22:19] LABS: ALBUMIN 3.2 g/dL (3.4-5.0); ALKALINE PHOSPHATASE 144 U/L (46-116); ALT (SGPT) 21 U/L (10-68); CALC OSMOLALITY 268 mosm/kg (275-300); CALCIUM 8.3 mg/dL (8.5-10.1); CARBON DIOXIDE 27.7 mmol/L (21.0-32.0); CHLORIDE - SERUM 97 mmol/L (98-107); CREATININE - SERUM 0.9 mg/dL (0.6-1.3); GLUCOSE 89 mg/dL (74-106); POTASSIUM - SERUM 4.1 mmol/L (3.5-5.1); PROTEIN - SERUM 6.7 g/dL (6.4-8.2); SODIUM 135 mmol/L (136-145); UREA NITROGEN 12 mg/dL (7-18); eGFR NON AFRICAN AMERICAN 70 mL/min (90-120)
[2017-12-12 22:35] LABS: AMYLASE - SERUM 46 U/L (25-115); CKMB 1.1 U/L (0.0-3.6); CREATINE KINASE 84 UL (21-215); LIPASE 99 U/L (73-393); TROPONIN-I < 0.017 ng/mL (0.000-0.060)
== END 2017-12-12 23:18 | disposition home or self-care (01) ==
LOC: D.ER 20:40
PROVIDERS: Family Medicine
DX: K21.9 Gastro-esophageal reflux disease without esophagitis (principal); Z76.5 Malingerer [conscious simulation]; F17.200 Nicotine dependence, unspecified, uncomplicated

== ENCOUNTER 2017-12-14 15:23 | Emergency (ER) | payer MEDICAID ==
[2017-10-16 14:27] VITALS: BMI 28.4
== END 2017-12-14 16:26 | disposition home or self-care (01) ==
LOC: D.ER 15:23
DX: S60.512A Abrasion of left hand, initial encounter (principal); W26.0XXA Contact with knife, initial encounter; Y93.89 Activity, other specified; Y92.019 Unspecified place in single-family (private) house as the place of occurrence of the external cause; J44.9 Chronic obstructive pulmonary disease, unspecified; Z86.73 Personal history of transient ischemic attack (TIA), and cerebral infarction without residual deficits; K21.9 Gastro-esophageal reflux disease without esophagitis

== ENCOUNTER 2017-12-22 15:33 | Emergency (ER) | payer MEDICAID ==
[2017-10-16 14:27] VITALS: BMI 28.4
== END 2017-12-22 17:54 | disposition home or self-care (01) ==
LOC: D.ER 15:33
DX: J06.9 Acute upper respiratory infection, unspecified (principal); J44.9 Chronic obstructive pulmonary disease, unspecified; Z86.73 Personal history of transient ischemic attack (TIA), and cerebral infarction without residual deficits; K21.9 Gastro-esophageal reflux disease without esophagitis

== ENCOUNTER 2017-12-24 17:47 | Emergency (ER) | payer MEDICAID ==
[2017-10-16 14:27] VITALS: BMI 28.4
[2017-12-24 20:48] LABS: BASOPHILS 0.3 % (0-2); EOSINOPHILS 0.4 % (0-7); HEMOGLOBIN 14.5 g/dL (12-16); IMMATURE GRANULOCYTES 0.3 % (0-5); LYMPHOCYTES 30.4 % (15-50); MCH 33.1 pg (26.0-34.0); MCHC 35.4 g/dL (31.0-37.0); MCV 93.6 fL (80.0-100.0); MEAN PLATELET VOLUME 8.7 fL (7.4-10.4); MONOCYTES 6.9 % (2-11); NEUTROPHILS 61.7 % (40-80); PLATELET COUNT 270 10x3/uL (130-400); RBC 4.38 10x6/uL (4.00-5.40); RDW 12.3 % (11.5-14.5); WBC 7.9 10x3/uL (4.8-10.8)
[2017-12-24 21:08] LABS: ALBUMIN 3.5 g/dL (3.4-5.0); ANION GAP 14.9 mmol/L (8-16); BILIRUBIN - TOTAL 0.5 mg/dL (0.2-1.3); CARBON DIOXIDE 23.8 mmol/L (21.0-32.0); POTASSIUM - SERUM 3.7 mmol/L (3.5-5.1); PROTEIN - SERUM 7.4 g/dL (6.4-8.2)
== END 2017-12-24 22:32 | disposition home or self-care (01) ==
LOC: D.ER 17:47
PROVIDERS: Emergency Medicine
DX: R06.00 Dyspnea, unspecified (principal); J44.9 Chronic obstructive pulmonary disease, unspecified; Z86.73 Personal history of transient ischemic attack (TIA), and cerebral infarction without residual deficits; K21.9 Gastro-esophageal reflux disease without esophagitis

== ENCOUNTER 2017-12-25 11:05 | Emergency (ER) | payer MEDICAID ==
[2017-10-16 14:27] VITALS: BMI 28.4
[2017-12-25 13:53] LABS: BASOPHILS 0.2 % (0-2); EOSINOPHILS 0.3 % (0-7); HEMATOCRIT 46.5 % (36.0-48.0); HEMOGLOBIN 16.2 g/dL (12-16); IMMATURE GRANULOCYTES 0.3 % (0-5); LYMPHOCYTES 18.6 % (15-50); MCH 33.4 pg (26.0-34.0); MCHC 34.8 g/dL (31.0-37.0); MONOCYTES 6.9 % (2-11); NEUTROPHILS 73.7 % (40-80); PLATELET COUNT 292 10x3/uL (130-400); RBC 4.85 10x6/uL (4.00-5.40); RDW 12.6 % (11.5-14.5)
[2017-12-25 13:54] LABS: MCV 95.9 fL (80.0-100.0); WBC 11.1 10x3/uL (4.8-10.8)
[2017-12-25 14:12] LABS: ANION GAP 16.7 mmol/L (8-16); BILIRUBIN - TOTAL 0.44 mg/dL (0.2-1.3); CALCIUM 9.6 mg/dL (8.5-10.1); CARBON DIOXIDE 26.4 mmol/L (21.0-32.0); POTASSIUM - SERUM 4.1 mmol/L (3.5-5.1); PROTEIN - SERUM 7.8 g/dL (6.4-8.2)
== END 2017-12-25 16:25 | disposition home or self-care (01) ==
LOC: D.ER 11:05
PROVIDERS: Family Medicine
DX: J20.9 Acute bronchitis, unspecified (principal); B34.9 Viral infection, unspecified; J44.9 Chronic obstructive pulmonary disease, unspecified; Z86.73 Personal history of transient ischemic attack (TIA), and cerebral infarction without residual deficits; K21.9 Gastro-esophageal reflux disease without esophagitis; F17.200 Nicotine dependence, unspecified, uncomplicated

== ENCOUNTER 2017-12-30 12:34 | Emergency (ER) | payer MEDICAID ==
[2017-10-16 14:27] VITALS: BMI 28.4
[2017-12-30 14:46] LABS: BASOPHILS 0.1 % (0-2); EOSINOPHILS 0.1 % (0-7); HEMATOCRIT 42.4 % (36.0-48.0); HEMOGLOBIN 14.7 g/dL (12-16); IMMATURE GRANULOCYTES 0.2 % (0-5); LYMPHOCYTES 18.7 % (15-50); MCHC 34.7 g/dL (31.0-37.0); MCV 95.3 fL (80.0-100.0); MEAN PLATELET VOLUME 8.9 fL (7.4-10.4); MONOCYTES 5.2 % (2-11); NEUTROPHILS 75.7 % (40-80); PLATELET COUNT 256 10x3/uL (130-400); RBC 4.45 10x6/uL (4.00-5.40); RDW 12.7 % (11.5-14.5); WBC 10.1 10x3/uL (4.8-10.8)
[2017-12-30 15:14] LABS: AMYLASE - SERUM 41 U/L (25-115); CKMB 0.9 U/L (0.0-3.6); CREATINE KINASE 50 UL (21-215); LIPASE 105 U/L (73-393)
[2017-12-30 15:18] LABS: APPEARANCE SLT CLOUDY (CLEAR); BACTERIA MODERATE /hpf (NONE SEEN); BILIRUBIN NEGATIVE (NEGATIVE); COLOR YELLOW (YELLOW); GLUCOSE NEGATIVE (NEGATIVE); KETONE NEGATIVE (NEGATIVE); NITRITE NEGATIVE (NEGATIVE); PROTEIN NEGATIVE (NEGATIVE); SPECIFIC GRAVITY 1.005 (1.005-1.020); UROBILINOGEN NORMAL (NORMAL)
[2017-12-30 15:36] LABS: TROPONIN-I < 0.017 ng/mL (0.000-0.060)
[2017-12-30 16:13] LABS: ALBUMIN 3.6 g/dL (3.4-5.0); ANION GAP 15.2 mmol/L (8-16); BILIRUBIN - TOTAL 0.28 mg/dL (0.2-1.3); CALCIUM 8.9 mg/dL (8.5-10.1); CARBON DIOXIDE 25.4 mmol/L (21.0-32.0); CREATININE - SERUM 1.1 mg/dL (0.6-1.3); POTASSIUM - SERUM 4.6 mmol/L (3.5-5.1); PROTEIN - SERUM 7.2 g/dL (6.4-8.2)
== END 2017-12-30 16:57 | disposition home or self-care (01) ==
LOC: D.ER 12:34
PROVIDERS: Family Medicine
DX: R07.89 Other chest pain (principal); K21.9 Gastro-esophageal reflux disease without esophagitis; J44.9 Chronic obstructive pulmonary disease, unspecified; Z86.73 Personal history of transient ischemic attack (TIA), and cerebral infarction without residual deficits; R00.0 Tachycardia, unspecified

== ENCOUNTER 2018-01-03 11:20 | Emergency (ER) | payer MEDICAID ==
[2017-10-16 14:27] VITALS: BMI 28.4
== END 2018-01-03 12:11 | disposition home or self-care (01) ==
LOC: D.ER 11:20
DX: M25.562 Pain in left knee (principal); M25.561 Pain in right knee; J44.9 Chronic obstructive pulmonary disease, unspecified; Z86.73 Personal history of transient ischemic attack (TIA), and cerebral infarction without residual deficits; K21.9 Gastro-esophageal reflux disease without esophagitis

== ENCOUNTER 2018-01-04 10:32 | Emergency (ER) | payer MEDICAID ==
[2017-10-16 14:27] VITALS: BMI 28.4
== END 2018-01-04 12:00 | disposition home or self-care (01) ==
LOC: D.ER 10:32
DX: M25.562 Pain in left knee (principal); M25.561 Pain in right knee; W19.XXXA Unspecified fall, initial encounter; Y93.89 Activity, other specified; Y92.019 Unspecified place in single-family (private) house as the place of occurrence of the external cause; J44.9 Chronic obstructive pulmonary disease, unspecified; Z86.73 Personal history of transient ischemic attack (TIA), and cerebral infarction without residual deficits; K21.9 Gastro-esophageal reflux disease without esophagitis

== ENCOUNTER 2018-01-10 09:33 | Emergency (ER) | payer MEDICAID | END 2018-01-10 13:23 | disposition home or self-care (01) | LOC: D.ER 09:33 | DX: J06.9 Acute upper respiratory infection, unspecified (principal); J20.9 Acute bronchitis, unspecified; M62.838 Other muscle spasm; J44.9 Chronic obstructive pulmonary disease, unspecified; Z86.73 Personal history of transient ischemic attack (TIA), and cerebral infarction without residual deficits; K21.9 Gastro-esophageal reflux disease without esophagitis; F17.200 Nicotine dependence, unspecified, uncomplicated ==

== ENCOUNTER 2018-01-16 21:38 | Emergency (ER) | payer MEDICAID ==
[2017-10-16 14:27] VITALS: BMI 28.4
[2018-01-16 22:24] LABS: BASOPHILS 0.1 % (0-2); EOSINOPHILS 0.9 % (0-7); HEMATOCRIT 38.5 % (36.0-48.0); IMMATURE GRANULOCYTES 0.4 % (0-5); LYMPHOCYTES 34.4 % (15-50); MCHC 33.8 g/dL (31.0-37.0); MCV 97.7 fL (80.0-100.0); MEAN PLATELET VOLUME 8.5 fL (7.4-10.4); MONOCYTES 5.1 % (2-11); NEUTROPHILS 59.1 % (40-80); PLATELET COUNT 278 10x3/uL (130-400); RBC 3.94 10x6/uL (4.00-5.40); RDW 12.9 % (11.5-14.5); WBC 7.7 10x3/uL (4.8-10.8)
[2018-01-16 22:34] LABS: ALBUMIN 3.2 g/dL (3.4-5.0); ALKALINE PHOSPHATASE 231 U/L (46-116); ALT (SGPT) 45 U/L (10-68); BILIRUBIN - TOTAL 0.34 mg/dL (0.2-1.3); CALC OSMOLALITY 263 mosm/kg (275-300); CALCIUM 8.4 mg/dL (8.5-10.1); CARBON DIOXIDE 27.3 mmol/L (21.0-32.0); CHLORIDE - SERUM 97 mmol/L (98-107); CREATININE - SERUM 1.1 mg/dL (0.6-1.3); GLUCOSE 98 mg/dL (74-106); PROTEIN - SERUM 6.5 g/dL (6.4-8.2); SODIUM 131 mmol/L (136-145); UREA NITROGEN 14 mg/dL (7-18); eGFR NON AFRICAN AMERICAN 55 mL/min (90-120)
[2018-01-16 22:37] LABS: TROPONIN-I < 0.017 ng/mL (0.000-0.060)
[2018-01-16 23:30] LABS: APPEARANCE HAZY (CLEAR); BILIRUBIN NEGATIVE (NEGATIVE); COLOR YELLOW (YELLOW); GLUCOSE NEGATIVE (NEGATIVE); KETONE NEGATIVE (NEGATIVE); NITRITE POSITIVE (NEGATIVE); PROTEIN NEGATIVE (NEGATIVE); RED CELLS - URINE NONE SEEN /hpf (0-5); UROBILINOGEN NORMAL (NORMAL); WHITE CELLS - URINE 0-5 /hpf (0-5)
[2018-01-16 23:31] LABS: BACTERIA MODERATE /hpf (NONE SEEN); EPITHELIAL CELLS OCC /hpf (0-5)
== END 2018-01-17 00:32 | disposition home or self-care (01) ==
LOC: D.ER 21:38
PROVIDERS: Emergency Medicine
DX: Z91.19 Patient's noncompliance with other medical treatment and regimen (principal); S80.02XA Contusion of left knee, initial encounter; W19.XXXA Unspecified fall, initial encounter; Y93.89 Activity, other specified; Y92.019 Unspecified place in single-family (private) house as the place of occurrence of the external cause; R51 Headache; F17.200 Nicotine dependence, unspecified, uncomplicated; J44.9 Chronic obstructive pulmonary disease, unspecified; Z86.73 Personal history of transient ischemic attack (TIA), and cerebral infarction without residual deficits

== ENCOUNTER 2018-01-25 20:16 | Emergency (ER) | payer MEDICAID ==
[2017-10-16 14:27] VITALS: BMI 28.4
== END 2018-01-25 22:29 | disposition home or self-care (01) ==
LOC: D.ER 20:16
DX: M25.572 Pain in left ankle and joints of left foot (principal); M25.571 Pain in right ankle and joints of right foot; W01.0XXA Fall on same level from slipping, tripping and stumbling without subsequent striking against object, initial encounter; Y93.89 Activity, other specified; Y92.019 Unspecified place in single-family (private) house as the place of occurrence of the external cause; Z86.73 Personal history of transient ischemic attack (TIA), and cerebral infarction without residual deficits; J44.9 Chronic obstructive pulmonary disease, unspecified

== ENCOUNTER 2018-01-27 14:58 | Emergency (ER) | payer MEDICAID ==
[2017-10-16 14:27] VITALS: BMI 28.4
== END 2018-01-27 19:10 | disposition home or self-care (01) ==
LOC: D.ER 14:58
DX: J20.9 Acute bronchitis, unspecified (principal); J06.9 Acute upper respiratory infection, unspecified

== ENCOUNTER → 2018-02-12 21:16 | Emergency (ER) | payer MEDICAID ==
[2017-10-16 14:27] VITALS: BMI 28.4
[~2018-02-12 21:16] MED LIST changes: +TYLENOL W/CODEI1 TAB PO
[2018-02-12 22:04] LABS: BASOPHILS 0.5 % (0-2); HEMATOCRIT 40.7 % (36.0-48.0); HEMOGLOBIN 13.9 g/dL (12-16); IMMATURE GRANULOCYTES 0.4 % (0-5); MCH 33.3 pg (26.0-34.0); MCHC 34.2 g/dL (31.0-37.0); MCV 97.6 fL (80.0-100.0); MEAN PLATELET VOLUME 8.6 fL (7.4-10.4); MONOCYTES 7.8 % (2-11); NEUTROPHILS 54.3 % (40-80); PLATELET COUNT 268 10x3/uL (130-400); RBC 4.17 10x6/uL (4.00-5.40)
[2018-02-12 22:14] LABS: CALCIUM 8.8 mg/dL (8.5-10.1); CREATININE - SERUM 0.9 mg/dL (0.6-1.3)
[2018-02-12 22:27] LABS: APPEARANCE CLOUDY (CLEAR); COLOR YELLOW (YELLOW); SPECIFIC GRAVITY 1.015 (1.005-1.020)
[2018-02-12 22:28] LABS: BACTERIA MANY /hpf (NONE SEEN); BILIRUBIN NEGATIVE (NEGATIVE); EPITHELIAL CELLS 25-50 /hpf (0-5); GLUCOSE NEGATIVE (NEGATIVE); KETONE NEGATIVE (NEGATIVE); NITRITE POSITIVE (NEGATIVE); PROTEIN TRACE mg/dL (NEGATIVE); RED CELLS - URINE NONE SEEN /hpf (0-5); UROBILINOGEN NORMAL (NORMAL); WHITE CELLS - URINE 0-5 /hpf (0-5)
== END | disposition home or self-care (01) ==
LOC: D.ER 21:16
PROVIDERS: Emergency Medicine
DX: R42 Dizziness and giddiness (principal); N39.0 Urinary tract infection, site not specified

== ENCOUNTER 2018-02-15 13:25 | Emergency (ER) | payer MEDICAID ==
[2017-10-16 14:27] VITALS: BMI 28.4
[~2018-02-15 13:25] MED LIST changes: -TYLENOL W/CODEI1 TAB PO
== END 2018-02-15 14:50 | disposition home or self-care (01) ==
LOC: D.ER 13:25
DX: G62.9 Polyneuropathy, unspecified (principal); M79.605 Pain in left leg; M79.604 Pain in right leg; J44.9 Chronic obstructive pulmonary disease, unspecified; Z86.73 Personal history of transient ischemic attack (TIA), and cerebral infarction without residual deficits

== ENCOUNTER 2018-02-17 20:04 | Observation (INO) | payer MEDICAID ==
[~2018-02-17] VITALS: Ht 172.7 cm; Wt 81.6 kg
[2018-02-17 20:27] LABS: APPEARANCE CLEAR (CLEAR); COLOR YELLOW (YELLOW)
[2018-02-17 20:28] LABS: BILIRUBIN NEGATIVE (NEGATIVE); GLUCOSE NEGATIVE (NEGATIVE); KETONE NEGATIVE (NEGATIVE); NITRITE NEGATIVE (NEGATIVE); PROTEIN NEGATIVE (NEGATIVE); SPECIFIC GRAVITY 1.005 (1.005-1.020); UROBILINOGEN NORMAL (NORMAL)
[2018-02-17 20:52] LABS: BASOPHILS 0.3 % (0-2); EOSINOPHILS 0.3 % (0-7); HEMATOCRIT 40.6 % (36.0-48.0); HEMOGLOBIN 13.9 g/dL (12-16); IMMATURE GRANULOCYTES 0.1 % (0-5); MCH 32.9 pg (26.0-34.0); MCHC 34.2 g/dL (31.0-37.0); MEAN PLATELET VOLUME 8.9 fL (7.4-10.4); NEUTROPHILS 73.3 % (40-80); PLATELET COUNT 311 10x3/uL (130-400); RBC 4.23 10x6/uL (4.00-5.40); RDW 12.5 % (11.5-14.5)
[2018-02-17 21:19] LABS: ALBUMIN 3.3 g/dL (3.4-5.0); ALKALINE PHOSPHATASE 161 U/L (46-116); ALT (SGPT) 16 U/L (10-68); BILIRUBIN - TOTAL 0.35 mg/dL (0.2-1.3); CALC OSMOLALITY 269 mosm/kg (275-300); CALCIUM 8.7 mg/dL (8.5-10.1); CARBON DIOXIDE 24.4 mmol/L (21.0-32.0); CHLORIDE - SERUM 98 mmol/L (98-107); CREATININE - SERUM 0.9 mg/dL (0.6-1.3); GLUCOSE 110 mg/dL (74-106); POTASSIUM - SERUM 4.3 mmol/L (3.5-5.1); PROTEIN - SERUM 7.4 g/dL (6.4-8.2); SODIUM 135 mmol/L (136-145); UREA NITROGEN 10 mg/dL (7-18); eGFR NON AFRICAN AMERICAN 70 mL/min (90-120)
[2018-02-17 21:28] LABS: APTT 27.3 SECONDS (22.8-39.4); INR 1.01 (0.85-1.17); PROTIME 12.9 SECONDS (11.6-15.0)
[2018-02-17 21:30] LABS: D-DIMER-QUANTITATIVE 0.45 ug/mLFEU (0.20-0.54)
[2018-02-17 21:31] LABS: CKMB 1.3 U/L (0.0-3.6); CREATINE KINASE 87 UL (21-215)
[2018-02-17 21:32] LABS: TROPONIN-I < 0.017 ng/mL (0.000-0.060)
[2018-02-18 02:56] VITALS: BP 116/81; BMI 27.4
[2018-02-18 04:00] VITALS: BP 101/69
[2018-02-18 06:28] LABS: BASOPHILS 0.3 % (0-2); EOSINOPHILS 1.2 % (0-7); HEMATOCRIT 41.1 % (36.0-48.0); HEMOGLOBIN 13.9 g/dL (12-16); IMMATURE GRANULOCYTES 0.3 % (0-5); LYMPHOCYTES 26.6 % (15-50); MCH 33.2 pg (26.0-34.0); MCHC 33.8 g/dL (31.0-37.0); MEAN PLATELET VOLUME 9.2 fL (7.4-10.4); MONOCYTES 6.6 % (2-11); PLATELET COUNT 283 10x3/uL (130-400); RBC 4.19 10x6/uL (4.00-5.40); RDW 12.7 % (11.5-14.5); WBC 6.8 10x3/uL (4.8-10.8)
[2018-02-18 06:36] LABS: MCV 98.1 fL (80.0-100.0)
[2018-02-18 06:44] LABS: ALBUMIN 3.2 g/dL (3.4-5.0); ALKALINE PHOSPHATASE 148 U/L (46-116); ALT (SGPT) 17 U/L (10-68); CALC OSMOLALITY 267 mosm/kg (275-300); CALCIUM 8.8 mg/dL (8.5-10.1); CARBON DIOXIDE 25.5 mmol/L (21.0-32.0); CHLORIDE - SERUM 99 mmol/L (98-107); CREATININE - SERUM 0.7 mg/dL (0.6-1.3); GLUCOSE 100 mg/dL (74-106); POTASSIUM - SERUM 4.5 mmol/L (3.5-5.1); PROTEIN - SERUM 6.7 g/dL (6.4-8.2); SODIUM 135 mmol/L (136-145); UREA NITROGEN 8 mg/dL (7-18); eGFR NON AFRICAN AMERICAN > 90 mL/min (90-120)
[2018-02-18 08:06] VITALS: BP 112/81
[2018-02-18 10:33] VITALS: BMI 27.3
[2018-02-18 11:42] VITALS: BP 97/64
[2018-02-18 16:27] VITALS: BP 99/74
[2018-02-18 20:00] VITALS: BP 105/66
[2018-02-19 04:00] VITALS: BP 99/64
[2018-02-19 08:24] VITALS: BP 92/64
[2018-02-19 12:44] VITALS: BP 124/76
[2018-02-19 16:05] VITALS: BP 118/77
[2018-02-19 20:23] VITALS: BP 101/67
[2018-02-20 00:19] VITALS: BP 109/60
[2018-02-20 03:38] VITALS: BP 92/64
[2018-02-20 08:11] VITALS: BP 107/80
[2018-02-20 12:34] VITALS: Ht 172.7 cm; Wt 81.6 kg
[2018-02-20 12:46] VITALS: BP 105/77
[2018-02-20 15:54] VITALS: BP 119/77
[2018-02-20 19:49] VITALS: BP 110/79
[2018-02-21 00:39] VITALS: BP 104/76
[2018-02-21 04:31] VITALS: BP 107/75
[2018-02-21 13:01] VITALS: BP 106/79
== END 2018-02-21 14:19 | disposition home or self-care (01) ==
LOC: D.ER 20:04 → D.MS 23:44 → OBSVTIME 23:44 → D.EDHOLD 23:44 → D.MS 02-18 00:11
PROVIDERS: Family Medicine
DX: K59.09 Other constipation (principal); T40.2X5A Adverse effect of other opioids, initial encounter; F17.200 Nicotine dependence, unspecified, uncomplicated; R30.0 Dysuria; R51 Headache

== ENCOUNTER 2018-03-04 15:04 | Emergency (ER) | payer MEDICAID ==
[2018-02-20 12:34] VITALS: BMI 27.3
[2018-03-04 15:27] LABS: BASOPHILS 0.1 % (0-2); EOSINOPHILS 0.3 % (0-7); HEMATOCRIT 40.4 % (36.0-48.0); HEMOGLOBIN 13.8 g/dL (12-16); IMMATURE GRANULOCYTES 0.1 % (0-5); LYMPHOCYTES 16.6 % (15-50); MCH 33.3 pg (26.0-34.0); MCHC 34.2 g/dL (31.0-37.0); MCV 97.6 fL (80.0-100.0); MEAN PLATELET VOLUME 8.9 fL (7.4-10.4); MONOCYTES 5.1 % (2-11); NEUTROPHILS 77.8 % (40-80); PLATELET COUNT 282 10x3/uL (130-400); RBC 4.14 10x6/uL (4.00-5.40); RDW 12.6 % (11.5-14.5); WBC 7.1 10x3/uL (4.8-10.8)
[2018-03-04 15:56] LABS: ALBUMIN 3.3 g/dL (3.4-5.0); ALKALINE PHOSPHATASE 167 U/L (46-116); ALT (SGPT) 19 U/L (10-68); CALC OSMOLALITY 263 mosm/kg (275-300); CALCIUM 8.8 mg/dL (8.5-10.1); CARBON DIOXIDE 24.7 mmol/L (21.0-32.0); CHLORIDE - SERUM 99 mmol/L (98-107); CREATINE KINASE 83 UL (21-215); CREATININE - SERUM 0.9 mg/dL (0.6-1.3); GLUCOSE 98 mg/dL (74-106); POTASSIUM - SERUM 4.1 mmol/L (3.5-5.1); PROTEIN - SERUM 7.4 g/dL (6.4-8.2); SODIUM 133 mmol/L (136-145); TROPONIN-I < 0.017 ng/mL (0.000-0.060); UREA NITROGEN 8 mg/dL (7-18); eGFR NON AFRICAN AMERICAN 70 mL/min (90-120)
[2018-03-04 17:32] LABS: CHOL - HDL RATIO 4.2 ratio (2.3-4.1); LDL-HDL RATIO 2.4 ratio (1.5-3.5)
== END 2018-03-04 18:23 | disposition home or self-care (01) ==
LOC: D.ER 15:04
PROVIDERS: Emergency Medicine; Physician Assistant
DX: J20.9 Acute bronchitis, unspecified (principal); J44.1 Chronic obstructive pulmonary disease with (acute) exacerbation; F17.200 Nicotine dependence, unspecified, uncomplicated; R00.0 Tachycardia, unspecified

== ENCOUNTER 2018-03-09 14:21 | Emergency (ER) | payer MEDICAID ==
[2018-02-20 12:34] VITALS: BMI 27.3
[2018-03-09 16:07] LABS: BASOPHILS 0.1 % (0-2); EOSINOPHILS 0.3 % (0-7); HEMOGLOBIN 14.1 g/dL (12-16); IMMATURE GRANULOCYTES 0.1 % (0-5); LYMPHOCYTES 17.2 % (15-50); MCH 33.3 pg (26.0-34.0); MCHC 34.4 g/dL (31.0-37.0); MCV 96.9 fL (80.0-100.0); MEAN PLATELET VOLUME 8.8 fL (7.4-10.4); MONOCYTES 5.3 % (2-11); PLATELET COUNT 282 10x3/uL (130-400); RBC 4.23 10x6/uL (4.00-5.40); RDW 12.7 % (11.5-14.5)
[2018-03-09 16:16] LABS: ALBUMIN 3.2 g/dL (3.4-5.0); ALKALINE PHOSPHATASE 161 U/L (46-116); ALT (SGPT) 15 U/L (10-68); BILIRUBIN - TOTAL 0.16 mg/dL (0.2-1.3); CALC OSMOLALITY 272 mosm/kg (275-300); CALCIUM 8.3 mg/dL (8.5-10.1); CARBON DIOXIDE 24.2 mmol/L (21.0-32.0); CHLORIDE - SERUM 102 mmol/L (98-107); CREATININE - SERUM 0.8 mg/dL (0.6-1.3); GLUCOSE 104 mg/dL (74-106); POTASSIUM - SERUM 4.2 mmol/L (3.5-5.1); PROTEIN - SERUM 6.5 g/dL (6.4-8.2); SODIUM 136 mmol/L (136-145); UREA NITROGEN 16 mg/dL (7-18); eGFR NON AFRICAN AMERICAN 80 mL/min (90-120)
[2018-03-09 16:19] LABS: TROPONIN-I < 0.017 ng/mL (0.000-0.060)
== END 2018-03-09 17:40 | disposition home or self-care (01) ==
LOC: D.ER 14:21
PROVIDERS: Nurse Practitioner Family
DX: J06.9 Acute upper respiratory infection, unspecified (principal); R05 Cough; J44.9 Chronic obstructive pulmonary disease, unspecified

== ENCOUNTER 2018-03-10 13:15 | Emergency (ER) | payer MEDICAID ==
[2018-02-20 12:34] VITALS: BMI 27.3
[2018-03-10 15:00] LABS: CREATINE KINASE 53 UL (21-215)
[2018-03-10 15:03] LABS: TROPONIN-I < 0.017 ng/mL (0.000-0.060)
== END 2018-03-10 15:22 | disposition home or self-care (01) ==
LOC: D.ER 13:15
PROVIDERS: Emergency Medicine
DX: R06.00 Dyspnea, unspecified (principal); F17.200 Nicotine dependence, unspecified, uncomplicated; R00.0 Tachycardia, unspecified

== ENCOUNTER 2018-03-12 17:31 | Emergency (ER) | payer MEDICAID ==
[2018-02-20 12:34] VITALS: BMI 27.3
== END 2018-03-12 20:40 | disposition home or self-care (01) ==
LOC: D.ER 17:31
DX: J20.9 Acute bronchitis, unspecified (principal); J06.9 Acute upper respiratory infection, unspecified

== ENCOUNTER 2018-03-14 14:41 | Emergency (ER) | payer MEDICAID ==
[2018-02-20 12:34] VITALS: BMI 27.3
[2018-03-14 15:41] LABS: BASOPHILS 0.2 % (0-2); EOSINOPHILS 0.1 % (0-7); HEMATOCRIT 41.3 % (36.0-48.0); HEMOGLOBIN 14.3 g/dL (12-16); IMMATURE GRANULOCYTES 0.2 % (0-5); LYMPHOCYTES 15.6 % (15-50); MCH 33.3 pg (26.0-34.0); MCHC 34.6 g/dL (31.0-37.0); MCV 96.3 fL (80.0-100.0); MEAN PLATELET VOLUME 8.9 fL (7.4-10.4); MONOCYTES 4.5 % (2-11); NEUTROPHILS 79.4 % (40-80); PLATELET COUNT 267 10x3/uL (130-400); RBC 4.29 10x6/uL (4.00-5.40); RDW 12.2 % (11.5-14.5); WBC 9.2 10x3/uL (4.8-10.8)
[2018-03-14 16:04] LABS: ALBUMIN 3.3 g/dL (3.4-5.0); ALKALINE PHOSPHATASE 155 U/L (46-116); ALT (SGPT) 22 U/L (10-68); CALC OSMOLALITY 266 mosm/kg (275-300); CALCIUM 9.2 mg/dL (8.5-10.1); CARBON DIOXIDE 24.5 mmol/L (21.0-32.0); CHLORIDE - SERUM 100 mmol/L (98-107); CREATININE - SERUM 0.8 mg/dL (0.6-1.3); GLUCOSE 128 mg/dL (74-106); POTASSIUM - SERUM 4.2 mmol/L (3.5-5.1); PROTEIN - SERUM 7.1 g/dL (6.4-8.2); SODIUM 133 mmol/L (136-145); UREA NITROGEN 9 mg/dL (7-18); eGFR NON AFRICAN AMERICAN 80 mL/min (90-120)
[2018-03-14 16:31] LABS: CREATINE KINASE 49 UL (21-215); MAGNESIUM - SERUM 2.2 mg/dL (1.8-2.4); PRO BNP 57 pg/mL (0-125); T4 THYROXIN - FREE 1.14 ng/dL (0.76-1.46); THYROID STIMULATING HORMONE 0.46 uIU/mL (0.36-3.74); TROPONIN-I < 0.017 ng/mL (0.000-0.060)
== END 2018-03-14 17:23 | disposition home or self-care (01) ==
LOC: D.ER 14:41
PROVIDERS: Emergency Medicine
DX: R06.00 Dyspnea, unspecified (principal); R00.0 Tachycardia, unspecified; J44.9 Chronic obstructive pulmonary disease, unspecified; F17.200 Nicotine dependence, unspecified, uncomplicated

== ENCOUNTER 2018-03-15 14:23 | Emergency (ER) | payer MEDICAID ==
[2018-02-20 12:34] VITALS: BMI 27.3
[2018-03-15 14:52] LABS: BASOPHILS 0.2 % (0-2); EOSINOPHILS 0.5 % (0-7); HEMATOCRIT 44.3 % (36.0-48.0); HEMOGLOBIN 15.3 g/dL (12-16); IMMATURE GRANULOCYTES 0.3 % (0-5); LYMPHOCYTES 16.5 % (15-50); MCH 33.8 pg (26.0-34.0); MCHC 34.5 g/dL (31.0-37.0); MEAN PLATELET VOLUME 9.2 fL (7.4-10.4); MONOCYTES 4.8 % (2-11); NEUTROPHILS 77.7 % (40-80); PLATELET COUNT 237 10x3/uL (130-400); RBC 4.52 10x6/uL (4.00-5.40); RDW 12.2 % (11.5-14.5); WBC 10.5 10x3/uL (4.8-10.8)
[2018-03-15 15:14] LABS: ALBUMIN 3.7 g/dL (3.4-5.0); ALKALINE PHOSPHATASE 161 U/L (46-116); ALT (SGPT) 24 U/L (10-68); BILIRUBIN - TOTAL 0.27 mg/dL (0.2-1.3); CALC OSMOLALITY 262 mosm/kg (275-300); CALCIUM 9.2 mg/dL (8.5-10.1); CARBON DIOXIDE 27.3 mmol/L (21.0-32.0); CHLORIDE - SERUM 96 mmol/L (98-107); CREATININE - SERUM 0.8 mg/dL (0.6-1.3); GLUCOSE 89 mg/dL (74-106); POTASSIUM - SERUM 4.4 mmol/L (3.5-5.1); PROTEIN - SERUM 7.5 g/dL (6.4-8.2); SODIUM 132 mmol/L (136-145); UREA NITROGEN 9 mg/dL (7-18); eGFR NON AFRICAN AMERICAN 80 mL/min (90-120)
[2018-03-15 15:25] LABS: CKMB 0.7 U/L (0.0-3.6); CREATINE KINASE 52 UL (21-215)
[2018-03-15 15:27] LABS: TROPONIN-I < 0.017 ng/mL (0.000-0.060)
== END 2018-03-15 18:55 | disposition home or self-care (01) ==
LOC: D.ER 14:23
PROVIDERS: Emergency Medicine
DX: R07.9 Chest pain, unspecified (principal); F17.200 Nicotine dependence, unspecified, uncomplicated

== ENCOUNTER 2018-03-18 11:37 | Emergency (ER) | payer MEDICAID ==
[2018-02-20 12:34] VITALS: BMI 27.3
[2018-03-18 11:58] LABS: BASOPHILS 0.2 % (0-2); EOSINOPHILS 0.2 % (0-7); HEMATOCRIT 44.1 % (36.0-48.0); HEMOGLOBIN 15.4 g/dL (12-16); IMMATURE GRANULOCYTES 0.2 % (0-5); LYMPHOCYTES 23.4 % (15-50); MCH 33.5 pg (26.0-34.0); MCHC 34.9 g/dL (31.0-37.0); MCV 95.9 fL (80.0-100.0); PLATELET COUNT 283 10x3/uL (130-400); RDW 12.1 % (11.5-14.5); WBC 9.7 10x3/uL (4.8-10.8)
[2018-03-18 12:14] LABS: ALBUMIN 3.7 g/dL (3.4-5.0); ANION GAP 11.8 mmol/L (8-16); BILIRUBIN - TOTAL 0.3 mg/dL (0.2-1.3); CALCIUM 9.5 mg/dL (8.5-10.1); CARBON DIOXIDE 28.6 mmol/L (21.0-32.0); CREATININE - SERUM 0.9 mg/dL (0.6-1.3); POTASSIUM - SERUM 4.4 mmol/L (3.5-5.1); PROTEIN - SERUM 7.8 g/dL (6.4-8.2)
[2018-03-18 13:34] LABS: APPEARANCE HAZY (CLEAR); COLOR YELLOW (YELLOW); GLUCOSE NEGATIVE (NEGATIVE); KETONE NEGATIVE (NEGATIVE); NITRITE NEGATIVE (NEGATIVE); PROTEIN NEGATIVE (NEGATIVE); UROBILINOGEN NORMAL (NORMAL)
[2018-03-18 13:35] LABS: BILIRUBIN NEGATIVE (NEGATIVE)
== END 2018-03-18 15:03 | disposition home or self-care (01) ==
LOC: D.ER 11:37
PROVIDERS: Family Medicine
DX: K59.00 Constipation, unspecified (principal); R11.2 Nausea with vomiting, unspecified; F17.200 Nicotine dependence, unspecified, uncomplicated

== ENCOUNTER 2018-03-23 15:09 | Emergency (ER) | payer MEDICAID ==
[2018-02-20 12:34] VITALS: BMI 27.3
[2018-03-23 15:56] LABS: APPEARANCE CLEAR (CLEAR); BILIRUBIN NEGATIVE (NEGATIVE); COLOR STRAW (YELLOW); GLUCOSE NEGATIVE (NEGATIVE); KETONE SMALL mg/dL (NEGATIVE); NITRITE NEGATIVE (NEGATIVE); PROTEIN NEGATIVE (NEGATIVE); SPECIFIC GRAVITY 1.005 (1.005-1.020); UROBILINOGEN NORMAL (NORMAL)
[2018-03-23 16:01] LABS: BACTERIA FEW /hpf (NONE SEEN); EPITHELIAL CELLS OCC /hpf (0-5); RED CELLS - URINE RARE /hpf (0-5); WHITE CELLS - URINE OCC /hpf (0-5)
[2018-03-23 16:54] LABS: BASOPHILS 0.2 % (0-2); EOSINOPHILS 0.1 % (0-7); HEMATOCRIT 42.4 % (36.0-48.0); IMMATURE GRANULOCYTES 0.1 % (0-5); LYMPHOCYTES 23.8 % (15-50); MCH 33.9 pg (26.0-34.0); MCHC 35.4 g/dL (31.0-37.0); MCV 95.7 fL (80.0-100.0); MONOCYTES 4.8 % (2-11); PLATELET COUNT 251 10x3/uL (130-400); RBC 4.43 10x6/uL (4.00-5.40)
[2018-03-23 17:12] LABS: ALBUMIN 3.5 g/dL (3.4-5.0); ALKALINE PHOSPHATASE 127 U/L (46-116); ALT (SGPT) 24 U/L (10-68); BILIRUBIN - TOTAL 0.36 mg/dL (0.2-1.3); CALC OSMOLALITY 258 mosm/kg (275-300); CALCIUM 9.5 mg/dL (8.5-10.1); CARBON DIOXIDE 23.8 mmol/L (21.0-32.0); CHLORIDE - SERUM 94 mmol/L (98-107); CREATININE - SERUM 0.9 mg/dL (0.6-1.3); GLUCOSE 95 mg/dL (74-106); PROTEIN - SERUM 7.5 g/dL (6.4-8.2); SODIUM 130 mmol/L (136-145); UREA NITROGEN 8 mg/dL (7-18); eGFR NON AFRICAN AMERICAN 70 mL/min (90-120)
[2018-03-23 17:16] LABS: TROPONIN-I < 0.017 ng/mL (0.000-0.060)
== END 2018-03-23 18:47 | disposition home or self-care (01) ==
LOC: D.ER 15:09
PROVIDERS: Emergency Medicine; Physician Assistant
DX: R30.0 Dysuria (principal); R05 Cough; J45.909 Unspecified asthma, uncomplicated; E87.1 Hypo-osmolality and hyponatremia; F17.200 Nicotine dependence, unspecified, uncomplicated; R00.0 Tachycardia, unspecified

== ENCOUNTER 2018-03-25 17:56 | Emergency (ER) | payer MEDICAID ==
[2018-02-20 12:34] VITALS: BMI 27.3
== END 2018-03-25 20:38 | disposition home or self-care (01) ==
LOC: D.ER 17:56
DX: R53.1 Weakness (principal); W19.XXXA Unspecified fall, initial encounter; Y93.89 Activity, other specified; Y92.89 Other specified places as the place of occurrence of the external cause; R00.0 Tachycardia, unspecified

== ENCOUNTER 2018-04-18 18:01 | Emergency (ER) | payer MEDICAID ==
[2018-02-20 12:34] VITALS: BMI 27.3
[2018-04-18 19:42] LABS: BASOPHILS 0.3 % (0-2); EOSINOPHILS 1.3 % (0-7); HEMATOCRIT 38.1 % (36.0-48.0); IMMATURE GRANULOCYTES 0.2 % (0-5); LYMPHOCYTES 28.7 % (15-50); MCH 32.8 pg (26.0-34.0); MCHC 34.1 g/dL (31.0-37.0); MCV 96.2 fL (80.0-100.0); MEAN PLATELET VOLUME 8.6 fL (7.4-10.4); MONOCYTES 8.1 % (2-11); NEUTROPHILS 61.4 % (40-80); PLATELET COUNT 295 10x3/uL (130-400); RBC 3.96 10x6/uL (4.00-5.40); RDW 12.2 % (11.5-14.5); WBC 6.1 10x3/uL (4.8-10.8)
[2018-04-18 20:16] LABS: ALKALINE PHOSPHATASE 159 U/L (46-116); ALT (SGPT) 23 U/L (10-68); CALC OSMOLALITY 265 mosm/kg (275-300); CALCIUM 8.9 mg/dL (8.5-10.1); CARBON DIOXIDE 28.3 mmol/L (21.0-32.0); CHLORIDE - SERUM 99 mmol/L (98-107); CREATININE - SERUM 0.8 mg/dL (0.6-1.3); GLUCOSE 103 mg/dL (74-106); PROTEIN - SERUM 6.6 g/dL (6.4-8.2); SODIUM 133 mmol/L (136-145); UREA NITROGEN 13 mg/dL (7-18); eGFR NON AFRICAN AMERICAN 80 mL/min (90-120)
== END 2018-04-18 21:21 | disposition home or self-care (01) ==
LOC: D.ER 18:01
PROVIDERS: Physician Assistant
DX: J44.1 Chronic obstructive pulmonary disease with (acute) exacerbation (principal); F17.200 Nicotine dependence, unspecified, uncomplicated

== ENCOUNTER 2018-04-22 13:06 | Emergency (ER) | payer MEDICAID ==
[2018-02-20 12:34] VITALS: BMI 27.3
== END 2018-04-22 13:58 | disposition home or self-care (01) ==
LOC: D.ER 13:06
DX: F41.9 Anxiety disorder, unspecified (principal)

== ENCOUNTER 2018-04-24 19:24 | Observation (INO) | payer MEDICAID ==
[~2018-04-24] VITALS: Ht 172.7 cm; Wt 82.3 kg
--- NOTE | ~2018-04-24 | OP ---
PATIENT NAME: JUSTIN MILLAN MEDICAL RECORD: [id number] :[birth year] LOCATION:D.M2 D.2122 ADMISSION DATE:04/24/18 SURGEON: KEITH DE LA O MD DATE OF OPERATION: 04/25/2018 PROCEDURE: Left heart catheterization, selective coronary angiography, right femoral artery approach. CATHETERS: A 5-German sheath, 5/4 left and right Juan, 5/4 pig. The procedure was well tolerated. The patient returned to zhou, sheath removed. ExoSeal device was placed. FINDINGS: Left ventriculography in 30-degree KURTZ view: Normal wall motion and normal systolic function. CORONARY ANATOMY: LEFT MAIN: Left main is free of disease. LAD: Free of disease as is the diagonal system. CIRCUMFLEX: Free of disease as is the marginal system. RIGHT CORONARY ARTERY: Somewhat codominant system, free of disease. IMPRESSION: Normal systolic function, normal coronary anatomy. TRANSINT:[id number] Voice Confirmation ID: [id number] DOCUMENT ID: [id number] KEITH DE LA O MD at 0826 CC: [id number] DICTATION DATE: 04/25/18 1246 CHISEL GRINDER: 04/25/18 1326 DIS IN 04/26/18 [facility] [address] [place] [address]
--- NOTE | ~2018-04-24 | HEMODYNAMI ---
PATIENT:JUSTIN IMLLAN MEDICAL RECORD: [id number] : [birth year] LOCATION:[address] [facility]# [id number] ADMISSION DATE: 04/24/18 Generatedon:04/25/201812:44 Patient name: JUSTIN MILLAN Patient #: [id number] SSN: : 1965 Date of study: 04/25/2018 Page: Of Hemodynamic Procedure Report Patient Data Patient Demographics Procedure consent was obtained First Name: JUSTIN Gender: Female Last Name: YANA : 1965 Middle Initial: J Age: 52 year(s) Patient #: [id number] Race: Unknown Additional ID: [id number] Contact details Address: [address] [place] [address] [address] State: [place] City: [facility] Zip code: [address] Past Medical History Allergies: No known allergies Admission Admission Data Admission Date: 04/24/2018 Admission Time: 21:30 Room #: [facility] Procedure Procedure Types Cath Procedure Diagnostic Procedure C [facility] w/Coronaries Procedure Description Procedure Date Procedure Date: 04/25/2018 Procedure Start Time: 12:32 Procedure End Time: 12:43 Procedure Staff Name Function Angelo Ramos MD Performing Physician Curtis Huerta RT Monitor Jorge Pantoja RN Nurse Rosanne Crook RT Scrub Procedure Data Cath Procedure Fluoroscopy Diagnostic fluoroscopy Total fluoroscopy Time: 0.9 time: 0.9 min min Diagnostic fluoroscopy Total fluoroscopy dose: dose: 152.03 mGy 152.03 mGy Contrast Material Contrast Material Type Amount (ml) Isovue 300 54 Entry Location Entry Primary Successful Side Size Upsize Upsize Entry Closure Succes sful Closure Location (Fr) 1 (Fr) 2 (Fr) Remarks Device Remarks Femoral Right 5 Fr Exoseal artery Estimated blood loss: 10 ml Diagnostic catheters Device Type Used For End Catheter Placement MULTIPACK JL 4.0 5Fr Procedure catheter MULTIPACK 3DRC 5Fr Procedure catheter MULTIPACK Pigtail 5 Fr Procedure catheter Procedure Medications Medication Administration Route Dosage Oxygen etCO2 Nasal cannula 2 l/min Heparin Flush Bag added to field 2 bags (1000units/500ml NS) 0.9% NaCl I.V. 100 ml/hr Fentanyl I.V. 50 mcg Versed I.V. 1 mg Fentanyl I.V. 50 mcg Versed I.V. 1 mg Fentanyl I.V. 50 mcg Hemodynamics Rest Heart Rate: 87 (bpm) Pressure Samples Time Site Value (mmHg) Purpose Heart Use Rate(bpm) 12:37 LV 120/-12,9 Snapshot 103 Snapshots Pre Cath Intra NCS Post Cath Vital Signs Time Heart Resp SPO2 etCO2 NIBP Rhythm Pain Sedation Rate (ipm) (%) (mmHg) (mmHg) Status Level (bpm) 12:16:01 86 19 26.9 122/79(95) NSR 0 (11) 10(A) , No pain 12:20:21 91 17 100 35.8 126/77(92) NSR 0 (11) 10(A) , No pain 12:24:45 91 16 98 35.8 114/71(91) NSR 0 (11) 10(A) , No pain 12:29:01 93 16 98 38.1 117/76(88) NSR 0 (11) 10(A) , No pain 12:33:21 96 16 97 36.6 105/60(77) NSR 0 (11) 9(A) , No pain 12:37:38 100 17 97 38.8 101/72(83) NSR 0 (11) 9(A) , No pain 12:40:01 102 17 96 57.5 103/69(78) NSR 0 (11) 10(A) , No pain Medications Time Medication Route Dose Verified Delivered Reason Notes Effe ctiveness by by 12:30:08 Oxygen etCO2 2 Angelo Patel Per Nasal l/min [facility] Pantoja RN physician cannula 12:30:15 Heparin Flush added 2 Angelo Patel used for Bag to bags [facility] Panto[facility] RN procedure (1000units/500ml field BATRES NS) 12:30:25 0.9% NaCl I.V. 100 Angelo Patel Per ml/hr [facility] Panto[facility] RN physician 12:31:17 Fentanyl I.V. 50 Angelo Patel for mcg [facility] Panto[facility] RN sedation 12:31:23 Versed I.V. 1 mg Angelo Hansen RN sedation 12:35:49 Fentanyl I.V. 50 Angelo [facility] Panto[facility] RN sedation 12:35:53 Versed I.V. 1 mg Angelo Hansen RN sedation 12:37:35 Fentanyl I.V. 50 Angelo [facility] Panto[facility] RN sedation Procedure Log Time Note 11:50:59 Time tracking: Regular hours (M-F 7:00 - 5:00) 11:51:02 Plan of Care:Hemodynamics will remain stable., Cardiac rhythm will remain stable., Comfort level will be maintained., Respiratory function will remain adequate., Patient/ family verbilizes understanding of procedure., Procedure tolerated without complication., Recovers from procedure without complications.. 11:51:04 Curtis WRIGHT(R) (CV) sent for patient. Start room use. 12:04:48 Patient received from PCU to CCL 3 Alert and oriented. Tansferred to table in Supine position. 12:04:49 Warm blankets applied, and carmen hugger turned on for patient comfort. 12:04:49 Correct patient and procedure confirmed by team. 12:04:50 Signed procedure consent form obtained from patient. 12:04:51 ECG and BP/O2 sat monitors applied to patient. 12:04:52 Full Disclosure recording started 12:14:39 Vital chart was started 12:16:40 Baseline sample Acquired. 12:16:45 Rhythm: sinus rhythm 12:17:23 H&P Date Dictated: 04/24/2018 Within 30 days and on chart.. 12:17:26 Pre-procedure instructions explained to patient. 12:17:28 Pre-op teaching completed and patient verbalized understanding. 12:17:31 Family unavailable. 12:17:38 Patient NPO since Midnight. 12:19:16 Patient allergic to No known allergies 12:20:12 Is the patient allergic to Iodine/contrast media? No. 12:20:19 Is patient on blood thinner?No 12:20:25 Patient diabetic? No. 12:21:31 ----Pre-sedation anethsthesia assessment.---- 12:21:41 Previous problem with sedation/anesthesia? No ? 12:21:46 Snore? Yes 12:21:47 Sleep apnea? No 12:21:49 Deviated septum? No 12:21:51 Opens mouth fully? Yes 12:21:55 Sticks out tongue? Yes 12:22:18 Airway obstruction? Yes COPD 12:22:29 Dentures? Yes OUT 12:22:42 Modified Ish's test Ulnar < 7 seconds 12:22:45 Patient pain scale 0/10 ?. 12:22:56 IV patent on arrival in right forearm with 0.9% NaCl at [facility]. 12:24:11 Right groin area was prepped with chlora-prep and draped in sterile fashion 12:24:18 Alarms reviewed by R. N. 12:24:19 Sharps counted by scrub and verified by R.N. 12:24:34 Use device set Femoral Dx 12:24:35 ACIST Syringe (54719) opened to sterile field. 12:24:36 Bag Decanter (2002S) opened to sterile field. 12:24:37 Medline Cath Pack ([id number]) opened to sterile field. 12:24:37 DIAGNOSTIC WIRE .035 260cm J wire (738853) opened to sterile field. 12:24:39 ACIST Hand Control (78399) opened to sterile field. 12:24:39 ACIST Manifold (86430) opened to sterile field. 12:24:41 DIAGNOSTIC Multipack 5Fr catheter set (MS9072) opened to sterile field. 12:24:41 Tegaderm 4 x 4 (1626W) opened to sterile field. 12:24:45 SHEATH Prelude 5Fr 0.035 ([id number]) opened to sterile field. 12:30:08 Oxygen 2 l/min etCO2 Nasal cannula was administered by Jorge Pantoja RN; Per physician; 12:30:15 Heparin Flush Bag (1000units/500ml NS) 2 bags added to field was administered by Jorge Pantoja RN; used for procedure; 12:30:25 0.9% NaCl 100 ml/hr I.V. was administered by Jorge Pantoja RN; Per physician; 12:31:00 Physician arrived 12:31:01 --------ALL STOP TIME OUT------ 12:31:01 Final Timeout: patient, procedure, and site verified with staff and physician. All members of the team are in agreement. 12:31:03 Right groin site verified by team. 12:31:07 Physical assessment completed. ASA score P 2 - A patient with mild systemic disease as per Angelo Ramos MD. 12:31:11 Sedation plan: IV Moderate Sedation Medication:Versed, Fentanyl 12:31:13 Zero performed for pressure channel P1 12::17 Fentanyl 50 mcg I.V. was administered by Jorge Pantoja RN; for sedation; 12::21 Procedure started. 12:: Versed 1 mg I.V. was administered by Jorge Pantoja RN; for sedation; 12:32:23 Local anesthetic to right femoral artery with Lidocaine 2% by Angelo Ramos MD.INITIAL ACCESS ONLY 12:32:35 Zero performed for pressure channel P1 12:32:38 Zero performed for pressure channel P1 12:33:02 A 5 Fr sheath was inserted into the Right Femoral artery 12:33:25 A MULTIPACK JL 4.0 5Fr catheter was advanced over the wire and used for Procedure. 12:34:53 LCA angiography performed. 12:35:20 Catheter removed. 12:35:30 A MULTIPACK 3DRC 5Fr catheter was advanced over the wire and used for Procedure. 12:35:49 Fentanyl 50 mcg I.V. was administered by Jorge Pantoja RN; for sedation; 12:35:53 Versed 1 mg I.V. was administered by Jorge Pantoja RN; for sedation; 12:36:15 RCA angiography performed. 12:36:58 Catheter removed. 12:37:22 A MULTIPACK Pigtail 5 Fr catheter was advanced over the wire and used for Procedure. 12:37:35 Fentanyl 50 mcg I.V. was administered by Jorge Pantoja RN; for sedation; 12:37:59 LV hemodynamics recorded. 12:38:01 LV gram done using UKRTZ 12:38:07 EF : 55 % 12:38:30 Catheter removed. 12:38:33 EXOSEAL 5Fr (EX500) opened to sterile field. 12:38:53 Sheath removed intact; hemostasis achieved with Exoseal to the Right Femoral artery. 12:38:56 Procedure ended.(Physican Out) 12:39:06 Fluoroscopy time 00.90 minutes. 12:39:14 Fluoroscopy dose: 152.03 mGy 12:39:14 Flurop Dose total: 152.03 12:39:21 Contrast amount:Isovue 300 54ml. 12:39:23 Sharps counted by scrub and verified by R.N. 12:43:01 Insertion/operative site no bleeding no hematoma. 12:43:05 Post-op/insertion site Right Femoral artery dressed using a 4 x 4 and Tegaderm. 12:43:14 Post right femoral artery:stable 12:43:22 Post-procedure physical assessment completed. ASA score P 2 - A patient with mild systemic disease as per Angelo Ramos MD. 12:43:27 Post procedure rhythm: unchanged. 12:43:30 Estimated blood loss: 10 ml 12:43:35 Post procedure instruction explained to patient.Patient verbalizes understanding. 12:43:36 Patient needs reinforcement of post procedure teaching. 12:43:39 Procedure and supply charges have been captured, reviewed, submitted and are correct. 12:43:44 Vital chart was stopped 12:43:45 See physician's report for complete and final results. 12:43:48 Report given to PCU. 12:43:53 Patient transfered to PCU with Bed. 12:43:55 Procedure ended. 12:43:55 Full Disclosure recording stopped 12:43:59 End room use (Document Last) Device Usage Item Name Manufacture Quantity Catalog Number Hospital Part Current M inimal Lot# / Charge Number Stock Stock Serial# Code ACIST Syringe Acist 1 49619 792737 805118 [id number] 2 0 (24767) [employer] Bag Decanter Microtek 1 2001S 087789 89294 175570 5 () Medical Inc. Medline Cath Cardinal 1 [id number] 393742 57535 460796 5 Pack Health ([id number]) DIAGNOSTIC WIRE St Fam 1 [id number] 728816 072384 925525 3 0 .035 260cm J wire (071782) ACIST Hand Acist 1 36825 303139 129735 639206 5 Control (58281) [employer] ACIST Manifold Acist 1 86720 323755 426077 330327 5 (16636) [employer] DIAGNOSTIC Cardinal 1 [id number] 831592 81596 288826 3 0 Multipack 5Fr Health catheter set ([id number]) Tegaderm 4 x 4 3M 1 1626W 037102 359919 239355 5 (1626W) SHEATH Prelude Merit 1 [id number] 179553 477722 105980 5 5Fr 0.035 Medical ([id number]) MULTIPACK JL Cardinal 1 [id number] 5 4.0 5Fr Health catheter MULTIPACK 3DRC Cardinal 1 [id number] 5 5Fr catheter Health MULTIPACK Cardinal 1 [id number] 5 Pigtail 5 Fr Health catheter EXOSEAL 5Fr Cardinal 1 EX500 260348 262063 352311 1 0 (EX500) Health Signature Audit [place] Stage Time Signature Unsigned Intra-Procedure 04/25/2018 Curtis Huerta 12:44:34 PM RT(R) (CV) Signatures Monitor : Curtis Huerta RT Signature : Date : Time : [address] [address]
[2018-04-24 20:14] LABS: APPEARANCE CLEAR (CLEAR); BILIRUBIN NEGATIVE (NEGATIVE); COLOR YELLOW (YELLOW); GLUCOSE NEGATIVE (NEGATIVE); KETONE NEGATIVE (NEGATIVE); NITRITE NEGATIVE (NEGATIVE); PROTEIN NEGATIVE (NEGATIVE); UROBILINOGEN NORMAL (NORMAL)
[2018-04-24 20:16] LABS: WHITE CELLS - URINE RARE /hpf (0-5)
[2018-04-24 20:17] LABS: BACTERIA FEW /hpf (NONE SEEN)
[2018-04-24 20:22] LABS: UDS - AMPHET NEGATIVE QUAL (NEGATIVE); UDS - BARB NEGATIVE QUAL (NEGATIVE); UDS - BENZO NEGATIVE QUAL (NEGATIVE); UDS - COCAINE NEGATIVE QUAL (NEGATIVE); UDS - OPIATE POSITIVE QUAL (NEGATIVE); UDS - PCP NEGATIVE QUAL (NEGATIVE); UDS - THC NEGATIVE QUAL (NEGATIVE)
[2018-04-24 20:27] LABS: BASOPHILS 0.2 % (0-2); EOSINOPHILS 0.6 % (0-7); HEMATOCRIT 39.3 % (36.0-48.0); HEMOGLOBIN 13.6 g/dL (12-16); IMMATURE GRANULOCYTES 0.3 % (0-5); LYMPHOCYTES 28.2 % (15-50); MCH 32.9 pg (26.0-34.0); MCHC 34.6 g/dL (31.0-37.0); MCV 94.9 fL (80.0-100.0); MEAN PLATELET VOLUME 9.2 fL (7.4-10.4); MONOCYTES 6.8 % (2-11); NEUTROPHILS 63.9 % (40-80); PLATELET COUNT 247 10x3/uL (130-400); RBC 4.14 10x6/uL (4.00-5.40); RDW 12.1 % (11.5-14.5); WBC 6.4 10x3/uL (4.8-10.8)
[2018-04-24 20:36] LABS: APTT 24.1 SECONDS (22.8-39.4); PROTIME 12.8 SECONDS (11.6-15.0)
[2018-04-24 20:55] LABS: ALBUMIN 3.4 g/dL (3.4-5.0); ALKALINE PHOSPHATASE 199 U/L (46-116); ALT (SGPT) 66 U/L (10-68); CALC OSMOLALITY 263 mosm/kg (275-300); CHLORIDE - SERUM 98 mmol/L (98-107); CKMB 0.9 U/L (0.0-3.6); GLUCOSE 96 mg/dL (74-106); POTASSIUM - SERUM 3.7 mmol/L (3.5-5.1); PROTEIN - SERUM 6.7 g/dL (6.4-8.2); SODIUM 132 mmol/L (136-145); TROPONIN-I < 0.017 ng/mL (0.000-0.060); UREA NITROGEN 9 mg/dL (7-18)
[2018-04-24 21:15] LABS: CALCIUM 8.6 mg/dL (8.5-10.1); CREATINE KINASE 82 UL (21-215); CREATININE - SERUM 0.9 mg/dL (0.6-1.3); LIPASE 134 U/L (73-393); MAGNESIUM - SERUM 2.2 mg/dL (1.8-2.4); PRO BNP 103 pg/mL (0-125); eGFR NON AFRICAN AMERICAN 70 mL/min (90-120)
[2018-04-24] MEDS ORDERED: TYLENOL W/CODEI1 TAB PO (23:59)
[2018-04-25 00:42] VITALS: BP 106/59; Ht 172.7 cm; Wt 82.3 kg
[2018-04-25 00:57] VITALS: BP 106/59
[2018-04-25 04:28] VITALS: BP 100/69
[2018-04-25 09:01] VITALS: BP 97/62
[2018-04-25 09:01] LABS: BASOPHILS 0.2 % (0-2); EOSINOPHILS 1.7 % (0-7); HEMATOCRIT 41.9 % (36.0-48.0); HEMOGLOBIN 14.4 g/dL (12-16); IMMATURE GRANULOCYTES 0.2 % (0-5); LYMPHOCYTES 24.4 % (15-50); MCH 33.2 pg (26.0-34.0); MCHC 34.4 g/dL (31.0-37.0); MCV 96.5 fL (80.0-100.0); MONOCYTES 10.3 % (2-11); NEUTROPHILS 63.2 % (40-80); PLATELET COUNT 252 10x3/uL (130-400); RBC 4.34 10x6/uL (4.00-5.40); WBC 5.8 10x3/uL (4.8-10.8)
[2018-04-25 09:24] LABS: CALCIUM 9.1 mg/dL (8.5-10.1); CARBON DIOXIDE 29.5 mmol/L (21.0-32.0); CREATININE - SERUM 0.9 mg/dL (0.6-1.3)
[2018-04-25 09:29] LABS: POTASSIUM - SERUM 4.5 mmol/L (3.5-5.1)
[2018-04-25 12:28] LABS: HCG SERUM NEGATIVE (NEGATIVE)
[2018-04-25 13:30] VITALS: BP 93/71
[2018-04-25 20:00] VITALS: BP 101/70
[2018-04-26] VITALS: BP 85/58
[2018-04-26 04:00] VITALS: BP 95/57
[2018-04-26 08:38] VITALS: BP 102/67
[2018-04-26 11:21] VITALS: BP 100/68
== END 2018-04-26 15:23 | disposition home or self-care (01) ==
LOC: D.ER 19:24 → OBSVTIME 21:30 → D.M2 21:30 → D.EDHOLD 21:30 → D.M2 23:09
PROVIDERS: Family Medicine; Internal Medicine Interventional Cardiology
DX: R07.89 Other chest pain (principal); I10 Essential (primary) hypertension; F41.9 Anxiety disorder, unspecified; F17.200 Nicotine dependence, unspecified, uncomplicated

== ENCOUNTER 2018-05-15 20:56 | Emergency (ER) | payer MEDICAID ==
[~2018-05-15] VITALS: Ht 172.7 cm; Wt 86.4 kg
[~2018-05-15 20:56] MED LIST changes: +TYLENOL W/CODEI1 TAB PO
[2018-05-15 21:31] VITALS: Ht 172.7 cm; Wt 86.4 kg
[2018-05-15] MEDS ORDERED: VIBRAMYCIN50 MG PO (21:34)
[2018-05-15 22:02] LABS: BASOPHILS 0.5 % (0-2); EOSINOPHILS 1.8 % (0-7); HEMATOCRIT 36.6 % (36.0-48.0); HEMOGLOBIN 12.4 g/dL (12-16); IMMATURE GRANULOCYTES 0.4 % (0-5); LYMPHOCYTES 30.3 % (15-50); MCH 32.5 pg (26.0-34.0); MCHC 33.9 g/dL (31.0-37.0); MCV 96.1 fL (80.0-100.0); MEAN PLATELET VOLUME 8.7 fL (7.4-10.4); MONOCYTES 7.5 % (2-11); NEUTROPHILS 59.5 % (40-80); PLATELET COUNT 276 10x3/uL (130-400); RBC 3.81 10x6/uL (4.00-5.40); RDW 12.3 % (11.5-14.5); WBC 8.1 10x3/uL (4.8-10.8)
[2018-05-15 22:12] LABS: APTT 26.6 SECONDS (22.8-39.4); PROTIME 12.8 SECONDS (11.6-15.0)
[2018-05-15 22:14] LABS: D-DIMER-QUANTITATIVE < 0.27 ug/mLFEU (0.20-0.54)
[2018-05-15 22:15] LABS: ALBUMIN 2.8 g/dL (3.4-5.0); ALKALINE PHOSPHATASE 185 U/L (46-116); ALT (SGPT) 32 U/L (10-68); BILIRUBIN - TOTAL 0.17 mg/dL (0.2-1.3); CALC OSMOLALITY 265 mosm/kg (275-300); CALCIUM 8.3 mg/dL (8.5-10.1); CARBON DIOXIDE 28.5 mmol/L (21.0-32.0); CHLORIDE - SERUM 99 mmol/L (98-107); GLUCOSE 100 mg/dL (74-106); POTASSIUM - SERUM 4.3 mmol/L (3.5-5.1); PROTEIN - SERUM 6.3 g/dL (6.4-8.2); SODIUM 133 mmol/L (136-145); UREA NITROGEN 12 mg/dL (7-18); eGFR NON AFRICAN AMERICAN 62 mL/min (90-120)
[2018-05-15 22:28] LABS: CKMB 2.2 U/L (0.0-3.6); CREATINE KINASE 97 UL (21-215); MAGNESIUM - SERUM 2.1 mg/dL (1.8-2.4); PRO BNP 68 pg/mL (0-125); THYROID STIMULATING HORMONE 1.29 uIU/mL (0.36-3.74)
[2018-05-15 22:30] LABS: TROPONIN-I < 0.017 ng/mL (0.000-0.060)
[2018-05-16 05:54] VITALS: BP 107/70
[2018-05-16] MEDS ORDERED: BENTYL 20 MG TA20 MG PO (20:53)
== END 2018-05-16 01:00 | disposition home or self-care (01) ==
LOC: D.ER 20:56
PROVIDERS: Family Medicine
DX: K59.00 Constipation, unspecified (principal); F17.200 Nicotine dependence, unspecified, uncomplicated

== ENCOUNTER 2018-05-16 18:50 | Emergency (ER) | payer MEDICAID ==
[~2018-05-16] VITALS: Ht 172.7 cm; Wt 86.2 kg
[~2018-05-16 18:50] MED LIST changes: +VIBRAMYCIN50 MG PO
[2018-05-16 18:58] VITALS: Ht 172.7 cm; Wt 86.2 kg
[2018-05-16] MEDS ORDERED: BENTYL 20 MG TA20 MG PO (20:53)
[2018-05-16 21:36] VITALS: BP 127/74
== END 2018-05-16 21:36 | disposition home or self-care (01) ==
LOC: D.ER 18:50
DX: K59.00 Constipation, unspecified (principal); F17.200 Nicotine dependence, unspecified, uncomplicated

== ENCOUNTER 2018-05-17 19:05 | Emergency (ER) | payer MEDICAID ==
[~2018-05-17] VITALS: Ht 172.7 cm; Wt 86.2 kg
[~2018-05-17 19:05] MED LIST changes: +BENTYL 20 MG TA20 MG PO
[2018-05-17 19:07] VITALS: Ht 172.7 cm; Wt 86.2 kg
[2018-05-17 21:49] VITALS: BP 121/80
== END 2018-05-17 21:51 | disposition home or self-care (01) ==
LOC: D.ER 19:05
DX: F41.9 Anxiety disorder, unspecified (principal); G62.9 Polyneuropathy, unspecified; F17.200 Nicotine dependence, unspecified, uncomplicated

== ENCOUNTER 2018-05-20 09:17 | Emergency (ER) | payer MEDICAID ==
[~2018-05-20] VITALS: Ht 172.7 cm; Wt 86.4 kg
[2018-05-20 09:22] VITALS: Ht 172.7 cm; Wt 86.4 kg
[2018-05-20 09:43] LABS: BASOPHILS 0.3 % (0-2); HEMATOCRIT 39.5 % (36.0-48.0); HEMOGLOBIN 13.6 g/dL (12-16); IMMATURE GRANULOCYTES 0.2 % (0-5); LYMPHOCYTES 24.2 % (15-50); MCHC 34.4 g/dL (31.0-37.0); MCV 95.9 fL (80.0-100.0); MEAN PLATELET VOLUME 8.7 fL (7.4-10.4); NEUTROPHILS 68.3 % (40-80); PLATELET COUNT 280 10x3/uL (130-400); RBC 4.12 10x6/uL (4.00-5.40); RDW 12.3 % (11.5-14.5); WBC 6.2 10x3/uL (4.8-10.8)
[2018-05-20 09:56] LABS: ALKALINE PHOSPHATASE 208 U/L (46-116); ALT (SGPT) 24 U/L (10-68); BILIRUBIN - TOTAL 0.47 mg/dL (0.2-1.3); CALC OSMOLALITY 264 mosm/kg (275-300); CARBON DIOXIDE 29.6 mmol/L (21.0-32.0); CHLORIDE - SERUM 99 mmol/L (98-107); CREATININE - SERUM 0.9 mg/dL (0.6-1.3); GLUCOSE 93 mg/dL (74-106); POTASSIUM - SERUM 4.3 mmol/L (3.5-5.1); PROTEIN - SERUM 6.7 g/dL (6.4-8.2); SODIUM 133 mmol/L (136-145); UREA NITROGEN 11 mg/dL (7-18); eGFR NON AFRICAN AMERICAN 70 mL/min (90-120)
[2018-05-20 10:00] LABS: INR 0.99 (0.85-1.17); PROTIME 12.7 SECONDS (11.6-15.0)
[2018-05-20 10:08] LABS: CKMB 1.7 U/L (0.0-3.6); CREATINE KINASE 81 UL (21-215); PRO BNP 93 pg/mL (0-125)
[2018-05-20 11:48] LABS: APPEARANCE CLEAR (CLEAR); BILIRUBIN NEGATIVE (NEGATIVE); COLOR YELLOW (YELLOW); GLUCOSE NEGATIVE (NEGATIVE); KETONE NEGATIVE (NEGATIVE); NITRITE NEGATIVE (NEGATIVE); PROTEIN NEGATIVE (NEGATIVE); SPECIFIC GRAVITY 1.005 (1.005-1.020); UROBILINOGEN NORMAL (NORMAL)
[2018-05-20] MEDS ORDERED: VISTARIL25 MG PO (14:32)
[2018-05-20] MEDS ORDERED: VOLTAREN75 MG PO (14:32)
[2018-05-20 15:28] VITALS: BP 112/77
== END 2018-05-20 15:33 | disposition home or self-care (01) ==
LOC: D.ER 09:17
PROVIDERS: Family Medicine
DX: F41.9 Anxiety disorder, unspecified (principal); Z76.5 Malingerer [conscious simulation]; F17.200 Nicotine dependence, unspecified, uncomplicated

== ENCOUNTER 2019-05-30 11:56 | Emergency (ER) | payer MEDICAID ==
[2018-05-20 09:22] VITALS: Ht 172.7 cm; Wt 76.8 kg
[~2019-05-30] VITALS: Ht 172.7 cm; Wt 76.8 kg
[~2019-05-30 11:56] MED LIST changes: +VISTARIL25 MG PO; +VOLTAREN75 MG PO
[2019-05-30 14:10] LABS: APPEARANCE CLEAR (CLEAR); BILIRUBIN NEGATIVE (NEGATIVE); COLOR STRAW (YELLOW); GLUCOSE NEGATIVE (NEGATIVE); KETONE NEGATIVE (NEGATIVE); NITRITE NEGATIVE (NEGATIVE); PROTEIN NEGATIVE (NEGATIVE); UROBILINOGEN NORMAL (NORMAL)
[2019-05-30 14:15] LABS: UDS - AMPHET NEGATIVE QUAL (NEGATIVE); UDS - BARB NEGATIVE QUAL (NEGATIVE); UDS - BENZO NEGATIVE QUAL (NEGATIVE); UDS - COCAINE NEGATIVE QUAL (NEGATIVE); UDS - OPIATE NEGATIVE QUAL (NEGATIVE); UDS - PCP NEGATIVE QUAL (NEGATIVE); UDS - THC NEGATIVE QUAL (NEGATIVE)
[2019-05-30 14:21] LABS: BASOPHILS 0.2 % (0-2); EOSINOPHILS 0.6 % (0-7); HEMATOCRIT 39.3 % (36.0-48.0); HEMOGLOBIN 13.3 g/dL (12-16); IMMATURE GRANULOCYTES 0.2 % (0-5); LYMPHOCYTES 32.8 % (15-50); MCH 32.8 pg (26.0-34.0); MCHC 33.8 g/dL (31.0-37.0); MCV 96.8 fL (80.0-100.0); MEAN PLATELET VOLUME 9.2 fL (7.4-10.4); MONOCYTES 7.5 % (2-11); NEUTROPHILS 58.7 % (40-80); RBC 4.06 10x6/uL (4.00-5.40); WBC 6.2 10x3/uL (4.8-10.8)
[2019-05-30 14:29] LABS: PLATELET COUNT 206 10x3/uL (130-400)
[2019-05-30 14:47] LABS: ALBUMIN 3.1 g/dL (3.4-5.0); ALKALINE PHOSPHATASE 133 U/L (46-116); ALT (SGPT) 30 U/L (10-68); BILIRUBIN - TOTAL 0.42 mg/dL (0.2-1.3); CALC OSMOLALITY 274 mosm/kg (275-300); CALCIUM 8.3 mg/dL (8.5-10.1); CARBON DIOXIDE 30.5 mmol/L (21.0-32.0); CHLORIDE - SERUM 103 mmol/L (98-107); CREATININE - SERUM 0.9 mg/dL (0.6-1.3); GLUCOSE 84 mg/dL (74-106); POTASSIUM - SERUM 4.2 mmol/L (3.5-5.1); PROTEIN - SERUM 5.8 g/dL (6.4-8.2); SODIUM 139 mmol/L (136-145); UREA NITROGEN 8 mg/dL (7-18); eGFR NON AFRICAN AMERICAN 70 mL/min (90-120)
[2019-05-30 14:50] LABS: TROPONIN-I < 0.017 ng/mL (0.000-0.060)
[2019-05-30] MEDS ORDERED: VOLTAREN75 MG PO (17:15)
[2019-05-30 17:38] VITALS: BP 100/63
== END 2019-05-30 17:39 | disposition home or self-care (01) ==
LOC: D.ER 11:56
PROVIDERS: Emergency Medicine
DX: I95.1 Orthostatic hypotension (principal); S00.03XA Contusion of scalp, initial encounter; W20.8XXA Other cause of strike by thrown, projected or falling object, initial encounter; Y93.89 Activity, other specified; Y92.89 Other specified places as the place of occurrence of the external cause

== ENCOUNTER 2019-07-05 11:32 | Emergency (ER) | payer MEDICAID ==
[~2019-07-05] VITALS: Ht 172.7 cm; Wt 100.0 kg
[2019-07-05 11:44] VITALS: Ht 172.7 cm; Wt 100.0 kg
[2019-07-05 13:54] VITALS: BP 118/88
[2019-07-06] MEDS ORDERED: TRAZODONE HCL150 MG PO (12:34)
== END 2019-07-05 14:06 | disposition home or self-care (01) ==
LOC: D.ER 11:32
DX: M54.5 Low back pain (principal)

== ENCOUNTER 2019-07-06 12:17 | Emergency (ER) | payer MEDICAID ==
[~2019-07-06] VITALS: Ht 172.7 cm; Wt 81.8 kg
[2019-07-06 12:27] VITALS: BP 126/82; Ht 172.7 cm; Wt 81.8 kg
[2019-07-06] MEDS ORDERED: TRAZODONE HCL150 MG PO (12:34)
== END 2019-07-06 14:23 | disposition left against medical advice (07) ==
LOC: D.ER 12:17
DX: R11.2 Nausea with vomiting, unspecified (principal); M54.9 Dorsalgia, unspecified; N93.9 Abnormal uterine and vaginal bleeding, unspecified

== ENCOUNTER 2019-07-26 15:18 | Inpatient (IN) | payer MEDICAID ==
[~2019-07-26] VITALS: Ht 172.7 cm; Wt 75.8 kg
[~2019-07-26 15:18] MED LIST changes: +TRAZODONE HCL150 MG PO
[2019-07-26 15:51] LABS: BASOPHILS 0.2 % (0-2); EOSINOPHILS 0 % (0-7); HEMATOCRIT 37.9 % (36.0-48.0); HEMOGLOBIN 13.8 g/dL (12-16); IMMATURE GRANULOCYTES 0.3 % (0-5); LYMPHOCYTES 8.1 % (15-50); MCH 33.3 pg (26.0-34.0); MCHC 36.4 g/dL (31.0-37.0); MCV 91.3 fL (80.0-100.0); MEAN PLATELET VOLUME 8.8 fL (7.4-10.4); MONOCYTES 4.1 % (2-11); NEUTROPHILS 87.3 % (40-80); PLATELET COUNT 247 10x3/uL (130-400); RBC 4.15 10x6/uL (4.00-5.40); RDW 12.9 % (11.5-14.5); WBC 11.5 10x3/uL (4.8-10.8)
[2019-07-26 15:55] VITALS: BP 152/90
[2019-07-26 16:01] LABS: APTT 24.8 SECONDS (22.8-39.4); INR 1.03 (0.85-1.17)
[2019-07-26 16:26] LABS: UDS - AMPHET POSITIVE QUAL (NEGATIVE); UDS - BARB NEGATIVE QUAL (NEGATIVE); UDS - BENZO NEGATIVE QUAL (NEGATIVE); UDS - COCAINE NEGATIVE QUAL (NEGATIVE); UDS - OPIATE NEGATIVE QUAL (NEGATIVE); UDS - PCP NEGATIVE QUAL (NEGATIVE); UDS - THC NEGATIVE QUAL (NEGATIVE)
[2019-07-26 16:30] LABS: ALBUMIN 3.5 g/dL (3.4-5.0); ALKALINE PHOSPHATASE 159 U/L (46-116); ALT (SGPT) 53 U/L (10-68); BILIRUBIN - TOTAL 1.14 mg/dL (0.2-1.3); CALCIUM 8.7 mg/dL (8.5-10.1); CARBON DIOXIDE 19.2 mmol/L (21.0-32.0); CKMB 4.8 U/L (0.0-3.6); CREATINE KINASE 324 UL (21-215); CREATININE - SERUM 0.8 mg/dL (0.6-1.3); GLUCOSE 95 mg/dL (74-106); PRO BNP 204 pg/mL (0-125); PROTEIN - SERUM 6.8 g/dL (6.4-8.2); UREA NITROGEN 6 mg/dL (7-18); eGFR NON AFRICAN AMERICAN 80 mL/min (90-120)
[2019-07-26 16:33] LABS: APPEARANCE CLEAR (CLEAR); BILIRUBIN NEGATIVE (NEGATIVE); COLOR STRAW (YELLOW); GLUCOSE NEGATIVE (NEGATIVE); KETONE MODERATE mg/dL (NEGATIVE); NITRITE NEGATIVE (NEGATIVE); PROTEIN NEGATIVE (NEGATIVE); SPECIFIC GRAVITY 1.005 (1.005-1.020); UROBILINOGEN NORMAL (NORMAL)
[2019-07-26 16:34] LABS: BACTERIA FEW /hpf (NONE SEEN); EPITHELIAL CELLS 0-5 /hpf (0-5); RED CELLS - URINE 0-5 /hpf (0-5); WHITE CELLS - URINE 0-5 /hpf (0-5)
[2019-07-26 16:37] LABS: CALC OSMOLALITY 235 mosm/kg (275-300); TROPONIN-I < 0.017 ng/mL (0.000-0.060)
[2019-07-26 16:38] LABS: CHLORIDE - SERUM 82 mmol/L (98-107); SODIUM 118 mmol/L (136-145)
[2019-07-26 18:25] VITALS: BP 169/90
[2019-07-27] VITALS (7 sets, daily range): BP systolic 93–143; BP diastolic 63–89; Ht 172.7 cm; Wt 75.8 kg
[2019-07-27 03:55] LABS: BASOPHILS 0.2 % (0-2); HEMATOCRIT 34.9 % (36.0-48.0); HEMOGLOBIN 12.5 g/dL (12-16); IMMATURE GRANULOCYTES 0.3 % (0-5); LYMPHOCYTES 20.5 % (15-50); MCH 32.9 pg (26.0-34.0); MCHC 35.8 g/dL (31.0-37.0); MCV 91.8 fL (80.0-100.0); MEAN PLATELET VOLUME 8.8 fL (7.4-10.4); MONOCYTES 10.1 % (2-11); NEUTROPHILS 67.9 % (40-80); PLATELET COUNT 263 10x3/uL (130-400); RDW 12.9 % (11.5-14.5)
[2019-07-27 04:15] LABS: PRO BNP 417 pg/mL (0-125); SODIUM 132 mmol/L (136-145)
[2019-07-27 09:59] LABS: ALKALINE PHOSPHATASE 132 U/L (46-116); ALT (SGPT) 48 U/L (10-68); BILIRUBIN - TOTAL 0.73 mg/dL (0.2-1.3); CALC OSMOLALITY 246 mosm/kg (275-300); CALCIUM 8.4 mg/dL (8.5-10.1); CARBON DIOXIDE 22.2 mmol/L (21.0-32.0); CHLORIDE - SERUM 93 mmol/L (98-107); CREATININE - SERUM 0.8 mg/dL (0.6-1.3); GLUCOSE 92 mg/dL (74-106); POTASSIUM - SERUM 3.5 mmol/L (3.5-5.1); PROTEIN - SERUM 6.1 g/dL (6.4-8.2); UREA NITROGEN 5 mg/dL (7-18); eGFR NON AFRICAN AMERICAN 80 mL/min (90-120)
[2019-07-28 00:59] VITALS: BP 110/73
[2019-07-28 04:48] LABS: BASOPHILS 0.2 % (0-2); EOSINOPHILS 1.6 % (0-7); HEMATOCRIT 31.6 % (36.0-48.0); IMMATURE GRANULOCYTES 0.4 % (0-5); LYMPHOCYTES 38.6 % (15-50); MCH 32.9 pg (26.0-34.0); MCHC 34.8 g/dL (31.0-37.0); MEAN PLATELET VOLUME 8.6 fL (7.4-10.4); MONOCYTES 8.3 % (2-11); NEUTROPHILS 50.9 % (40-80); PLATELET COUNT 230 10x3/uL (130-400); RBC 3.34 10x6/uL (4.00-5.40); RDW 13.3 % (11.5-14.5); WBC 4.5 10x3/uL (4.8-10.8)
[2019-07-28 04:55] LABS: MCV 94.6 fL (80.0-100.0)
[2019-07-28 05:08] VITALS: BP 108/74
[2019-07-28 05:10] LABS: ALBUMIN 2.5 g/dL (3.4-5.0); ALKALINE PHOSPHATASE 109 U/L (46-116); ALT (SGPT) 37 U/L (10-68); CALC OSMOLALITY 275 mosm/kg (275-300); CALCIUM 8.2 mg/dL (8.5-10.1); CARBON DIOXIDE 23.3 mmol/L (21.0-32.0); CHLORIDE - SERUM 108 mmol/L (98-107); CREATININE - SERUM 0.8 mg/dL (0.6-1.3); GLUCOSE 87 mg/dL (74-106); POTASSIUM - SERUM 3.6 mmol/L (3.5-5.1); PROTEIN - SERUM 5.3 g/dL (6.4-8.2); SODIUM 140 mmol/L (136-145); eGFR NON AFRICAN AMERICAN 80 mL/min (90-120)
[2019-07-28 05:13] LABS: UREA NITROGEN 7 mg/dL (7-18)
[2019-07-28 08:56] VITALS: BP 93/60
[2019-07-28] MEDS ORDERED: EFFEXOR XR75 MG PO (10:09)
--- NOTE | 2019-07-28 12:00 | MORECARE ---
CASE MANAGEMENT DISCHARGE SUMMARY PATIENT: JUSTIN MILLAN UNIT: [id number] ADM DATE: 07/26/19 AGE: 53 : 67 SEX: F ROOM/BED: D.2217 AUTHOR: CHRISTOPHER CLAUDIO PHYSICIAN: REFERRING PHYSICIAN: RICH PETERS MD DATE OF SERVICE: 07/28/19 Discharge Plan Patient Name: JUSTIN MILLAN Facility: [facility]:[place] : 1965 Planned Disposition: Home or Self Care Anticipated Discharge Date: Discharge Date: Expected LOS: Initial Reviewer: [email or web address] Initial Review Date: 07/26/2019 Generated: 07/28/19 12:59 pm Comments DCP- Discharge Planning Updated by [email or web address]: Sherley Barriga on 07/28/19 10:[address] Patient Name: JUSTIN MILLAN Admission Status: ER Accout number: [id number] Admission Date: 07-26-2019 : 1965 Admission Diagnosis: Attending: RICH PETERS Current LOS: 2 Anticipated DC Date: Planned Disposition: Home or Self Care Primary Insurance: MEDICAID [place] Discharge Planning Comments: CM met with patient to complete initial dc planning assessment. CM educated patient on the CM role and verbal consent given by patient to complete assessment. Patient lives at home by herself where she is independent with her care. At discharge patient plans to return home and feels this is a safe discharge. Her sister will be her lead driver home today. CM discussed availability of home health, rehab services, and medical equipment. Patient uses a cane at home at times. Patient denied known discharge needs at this time. CM will continue to follow and will assist as needed with dc plans/needs. Ceramist: Sherley Barriga DCPIA - Discharge Planning Initial Assessment Updated by [email or web address]: Sherley Barriga on 07/28/19 11:55 am * Is the patient Alert and Oriented? Yes * PCP rickey tran/ricky office * Pharmacy [facility] * Preadmission Environment Home Alone * ADLs Independent * Equipment Cane * List name and contact numbers for known caregivers / representatives who currently or will assist patient after discharge: BETO IVEY [phone] * Verbal permission to speak to the caregivers and representatives has been obtained from the patient. N/A * Community resources currently utilized None * Additional services required to return to the preadmission environment? No * Can the patient safely return to the preadmission environment? Yes * Has this patient been hospitalized within the prior 30 days at any hospital? No Patient Name: JUSTIN MILLAN Page [phone] at 1200 All edits/amendments must be made on the electronic document DICTATION DATE: 07/28/19 1159 FOOD AND NUTRITION TEACHER: DELFINO 07/28/19 1159 RPT#: [id number] DC DATE: STATUS: ADM IN [facility] [address] [place] [address] END OF REPORT
--- NOTE | 2019-07-28 13:51 | MORECARE ---
CASE MANAGEMENT DISCHARGE SUMMARY PATIENT: JUSTIN MILLAN UNIT: [id number] ADM DATE: 07/26/19 AGE: 53 : 67 SEX: F ROOM/BED: D.2217 AUTHOR: CHRISTOPHER CLAUDIO PHYSICIAN: REFERRING PHYSICIAN: RICH PETERS MD DATE OF SERVICE: 07/28/19 Discharge Plan Patient Name: JUSTIN MILLAN Facility: [facility]:[place] : 1965 Planned Disposition: Home or Self Care Anticipated Discharge Date: Discharge Date: 07/28/2019 Expected LOS: Initial Reviewer: [email or web address] Initial Review Date: 07/26/2019 Generated: 07/28/19 2:51 pm Comments DCP- Discharge Planning Updated by [email or web address]: Sherley Barriga on 07/28/19 10:[address] Patient Name: JUSTIN MILLAN Admission Status: ER Accout number: [id number] Admission Date: 07-26-2019 : 1965 Admission Diagnosis: Attending: RICH PETERS Current LOS: 2 Anticipated DC Date: Planned Disposition: Home or Self Care Primary Insurance: MEDICAID [place] Discharge Planning Comments: CM met with patient to complete initial dc planning assessment. CM educated patient on the CM role and verbal consent given by patient to complete assessment. Patient lives at home by herself where she is independent with her care. At discharge patient plans to return home and feels this is a safe discharge. Her sister will be her sprinkler driver home today. CM discussed availability of home health, rehab services, and medical equipment. Patient uses a cane at home at times. Patient denied known discharge needs at this time. CM will continue to follow and will assist as needed with dc plans/needs. Yard Spotter: Sherley Barriga DCPIA - Discharge Planning Initial Assessment Updated by [email or web address]: Sherley Barriga on 07/28/19 11:55 am * Is the patient Alert and Oriented? Yes * PCP rickey tran/ricky office * Pharmacy [facility] * Preadmission Environment Home Alone * ADLs Independent * Equipment Cane * List name and contact numbers for known caregivers / representatives who currently or will assist patient after discharge: BETO IVEY [phone] * Verbal permission to speak to the caregivers and representatives has been obtained from the patient. N/A * Community resources currently utilized None * Additional services required to return to the preadmission environment? No * Can the patient safely return to the preadmission environment? Yes * Has this patient been hospitalized within the prior 30 days at any hospital? No Last DP export: 07/28/19 11:00 am Patient Name: JUSTIN MILLAN Page [phone] at 1351 All edits/amendments must be made on the electronic document DICTATION DATE: 07/28/19 1351 ACTIVITIES THERAPIST: DELFINO 07/28/19 1351 RPT#: [id number] DC DATE:07/28/19 STATUS: DIS IN [facility] [address] [place] [address] END OF REPORT
--- NOTE | 2019-07-29 11:41 | MORECARE ---
CASE MANAGEMENT DISCHARGE SUMMARY PATIENT: JUSTIN MILLAN UNIT: [id number] ADM DATE: 07/26/19 AGE: 53 : 67 SEX: F ROOM/BED: D.2217 AUTHOR: CHRISTOPHER CLAUDIO PHYSICIAN: REFERRING PHYSICIAN: RICH PETERS MD DATE OF SERVICE: 07/29/19 Discharge Plan Patient Name: JUSTIN MILLAN Facility: [facility]:[place] : 1965 Planned Disposition: Home or Self Care Anticipated Discharge Date: Discharge Date: 07/28/2019 Expected LOS: 0 Initial Reviewer: [email or web address] Initial Review Date: 07/26/2019 Generated: 07/29/19 12:41 pm Comments DCP- Discharge Planning Updated by [email or web address]: Sherley Barriga on 07/28/19 10:[address] Patient Name: JUSTIN MILLAN Admission Status: ER Accout number: [id number] Admission Date: 07-26-2019 : 1965 Admission Diagnosis: Attending: RICH PETERS Current LOS: 2 Anticipated DC Date: Planned Disposition: Home or Self Care Primary Insurance: MEDICAID [place] Discharge Planning Comments: CM met with patient to complete initial dc planning assessment. CM educated patient on the CM role and verbal consent given by patient to complete assessment. Patient lives at home by herself where she is independent with her care. At discharge patient plans to return home and feels this is a safe discharge. Her sister will be her electric pile driver operator home today. CM discussed availability of home health, rehab services, and medical equipment. Patient uses a cane at home at times. Patient denied known discharge needs at this time. CM will continue to follow and will assist as needed with dc plans/needs. Bunch Breaker: Sherley Barriga DCPIA - Discharge Planning Initial Assessment Updated by [email or web address]: Sherley Barriga on 07/28/19 11:55 am * Is the patient Alert and Oriented? Yes * PCP rickey tran/ricky office * Pharmacy [facility] * Preadmission Environment Home Alone * ADLs Independent * Equipment Cane * List name and contact numbers for known caregivers / representatives who currently or will assist patient after discharge: BETO IVEY [phone] * Verbal permission to speak to the caregivers and representatives has been obtained from the patient. N/A * Community resources currently utilized None * Additional services required to return to the preadmission environment? No * Can the patient safely return to the preadmission environment? Yes * Has this patient been hospitalized within the prior 30 days at any hospital? No Last DP export: 07/28/19 12:51 pm Patient Name: JUSTIN MILLAN Page 56749 at 1141 All edits/amendments must be made on the electronic document DICTATION DATE: 07/29/19 1140 ADVERTISING PROJECT MANAGER: DELFINO 07/29/19 1140 RPT#: [id number] DC DATE:07/28/19 STATUS: DIS IN [facility] [address] [place] [address] END OF REPORT
[2019-07-29] MEDS ORDERED: ZYLOPRIM300 MG PO (15:19)
== END 2019-07-28 13:34 | disposition home or self-care (01) | DRG 641 ==
LOC: D.ER 15:18 → D.MS 18:15 → D.SDCHOLD 07-28 13:10 → D.MS 07-28 13:34
PROVIDERS: Family Medicine; ADMIT Internal Medicine Nephrology; ATTEND Internal Medicine Nephrology
DX: E87.1 Hypo-osmolality and hyponatremia (principal); F17.203 Nicotine dependence unspecified, with withdrawal; R06.00 Dyspnea, unspecified; G62.9 Polyneuropathy, unspecified; J44.9 Chronic obstructive pulmonary disease, unspecified; M54.9 Dorsalgia, unspecified; F41.9 Anxiety disorder, unspecified

== ENCOUNTER 2019-07-29 14:25 | Emergency (ER) | payer MEDICAID ==
[~2019-07-29] VITALS: Ht 172.7 cm; Wt 85.0 kg
[~2019-07-29 14:25] MED LIST changes: +EFFEXOR XR75 MG PO
[2019-07-29 14:28] VITALS: Ht 172.7 cm; Wt 85.0 kg
[2019-07-29 15:15] VITALS: BP 129/90
[2019-07-29] MEDS ORDERED: ZYLOPRIM300 MG PO (15:19)
== END 2019-07-29 16:32 | disposition home or self-care (01) ==
LOC: D.ER 14:25
DX: I10 Essential (primary) hypertension (principal); F41.9 Anxiety disorder, unspecified; F15.10 Other stimulant abuse, uncomplicated

== ENCOUNTER 2019-08-27 15:26 | Emergency (ER) | payer MEDICAID ==
[~2019-08-27] VITALS: Ht 172.7 cm; Wt 81.8 kg
[~2019-08-27 15:26] MED LIST changes: +ZYLOPRIM300 MG PO
[2019-08-27 15:27] VITALS: Ht 172.7 cm; Wt 81.8 kg
[2019-08-27 15:58] LABS: BASOPHILS 0.3 % (0-2); EOSINOPHILS 0.1 % (0-7); HEMOGLOBIN 13.6 g/dL (12-16); IMMATURE GRANULOCYTES 0.1 % (0-5); LYMPHOCYTES 27.3 % (15-50); MCH 34.3 pg (26.0-34.0); MCHC 34.9 g/dL (31.0-37.0); MCV 98.2 fL (80.0-100.0); MEAN PLATELET VOLUME 8.6 fL (7.4-10.4); MONOCYTES 5.3 % (2-11); NEUTROPHILS 66.9 % (40-80); PLATELET COUNT 257 10x3/uL (130-400); RBC 3.97 10x6/uL (4.00-5.40); RDW 13.2 % (11.5-14.5); WBC 7.6 10x3/uL (4.8-10.8)
[2019-08-27 16:10] LABS: ALBUMIN 3.4 g/dL (3.4-5.0); ALKALINE PHOSPHATASE 120 U/L (46-116); ALT (SGPT) 16 U/L (10-68); BILIRUBIN - TOTAL 0.32 mg/dL (0.2-1.3); CALC OSMOLALITY 268 mosm/kg (275-300); CALCIUM 8.8 mg/dL (8.5-10.1); CHLORIDE - SERUM 100 mmol/L (98-107); CREATININE - SERUM 0.8 mg/dL (0.6-1.3); GLUCOSE 105 mg/dL (74-106); POTASSIUM - SERUM 3.9 mmol/L (3.5-5.1); PROTEIN - SERUM 6.9 g/dL (6.4-8.2); SODIUM 135 mmol/L (136-145); UREA NITROGEN 11 mg/dL (7-18); eGFR NON AFRICAN AMERICAN 80 mL/min (90-120)
[2019-08-27 16:14] LABS: AMYLASE - SERUM 68 U/L (25-115); LIPASE 150 U/L (73-393)
[2019-08-27 16:15] LABS: TROPONIN-I < 0.017 ng/mL (0.000-0.060)
--- NOTE | 2019-08-27 16:21 | NUR ---
DR. HOLLOWAY NOTIFIED AND REVIEWED PT'S BEHAVIOR AND ASSESSMENT RESULTS. PT IS A LOW RISK PER DR. HOLLOWAY. DR. HOLLOWAY STATED TO GIVE RESOURCES TO PT AT TIME OF DISCHAGRE. NO FURTHER ORDERS AT THIS TIME. RESOURCES REVIEWED WITH PT AND SHE VERBALIZIED UNDERSTANDING.
[2019-08-27 16:53] LABS: APPEARANCE CLEAR (CLEAR); BILIRUBIN NEGATIVE (NEGATIVE); COLOR STRAW (YELLOW); GLUCOSE NEGATIVE (NEGATIVE); KETONE NEGATIVE (NEGATIVE); NITRITE NEGATIVE (NEGATIVE); PROTEIN TRACE mg/dL (NEGATIVE); SPECIFIC GRAVITY 1.005 (1.005-1.020); UROBILINOGEN NORMAL (NORMAL)
[2019-08-27 16:54] LABS: WHITE CELLS - URINE OCC /hpf (NEGATIVE)
[2019-08-27 16:55] LABS: BACTERIA FEW /hpf (NEGATIVE); EPITHELIAL CELLS 0-5 /hpf (0-5); RED CELLS - URINE RARE /hpf (0-5)
[2019-08-27] MEDS ORDERED: VISTARIL25 MG PO (17:29)
[2019-08-27 18:00] VITALS: BP 138/80
== END 2019-08-27 18:01 | disposition home or self-care (01) ==
LOC: D.ER 15:26
PROVIDERS: Emergency Medicine
DX: F41.9 Anxiety disorder, unspecified (principal); J44.9 Chronic obstructive pulmonary disease, unspecified

== ENCOUNTER 2019-09-17 11:04 | Emergency (ER) | payer MEDICAID ==
[~2019-09-17] VITALS: Ht 172.7 cm; Wt 76.8 kg
[2019-09-17 11:05] VITALS: Ht 172.7 cm; Wt 76.8 kg
[2019-09-17 11:17] LABS: BASOPHILS 0.2 % (0-2); EOSINOPHILS 0.2 % (0-7); HEMATOCRIT 39.5 % (36.0-48.0); HEMOGLOBIN 14.1 g/dL (12-16); IMMATURE GRANULOCYTES 0.2 % (0-5); MCH 34.7 pg (26.0-34.0); MCHC 35.7 g/dL (31.0-37.0); MCV 97.3 fL (80.0-100.0); MEAN PLATELET VOLUME 11.2 fL (7.4-10.4); MONOCYTES 6.7 % (2-11); NEUTROPHILS 74.7 % (40-80); RBC 4.06 10x6/uL (4.00-5.40); RDW 13.3 % (11.5-14.5); WBC 6.1 10x3/uL (4.8-10.8)
[2019-09-17 11:21] LABS: PLATELET COUNT 329 10x3/uL (130-400)
[2019-09-17 12:06] LABS: ANION GAP 17.5 mmol/L (8-16); CARBON DIOXIDE 20.3 mmol/L (21.0-32.0); CREATININE - SERUM 0.9 mg/dL (0.6-1.3); POTASSIUM - SERUM 3.8 mmol/L (3.5-5.1)
[2019-09-17 12:22] LABS: ALBUMIN 3.5 g/dL (3.4-5.0); BILIRUBIN - TOTAL 0.66 mg/dL (0.2-1.3); PROTEIN - SERUM 7.2 g/dL (6.4-8.2)
[2019-09-17 12:40] LABS: CKMB 2.2 U/L (0.0-3.6); CREATINE KINASE 225 UL (21-215); TROPONIN-I < 0.017 ng/mL (0.000-0.060)
[2019-09-17] MEDS ORDERED: VISTARIL50 MG PO (13:48)
[2019-09-17 14:10] VITALS: BP 134/87
== END 2019-09-17 14:11 | disposition home or self-care (01) ==
LOC: D.ER 11:04
PROVIDERS: Family Medicine
DX: F15.10 Other stimulant abuse, uncomplicated (principal); E87.1 Hypo-osmolality and hyponatremia

== ENCOUNTER 2020-03-14 20:28 | Emergency (ER) | payer MEDICAID ==
[~2020-03-14] VITALS: Ht 172.7 cm; Wt 63.6 kg
[~2020-03-14 20:28] MED LIST changes: +VISTARIL50 MG PO
[2020-03-14 20:38] VITALS: Ht 172.7 cm; Wt 63.6 kg
[2020-03-14 22:42] LABS: BASOPHILS 0.2 % (0-2); EOSINOPHILS 0.3 % (0-7); HEMATOCRIT 42.2 % (36.0-48.0); HEMOGLOBIN 14.4 g/dL (12-16); IMMATURE GRANULOCYTES 0.2 % (0-5); LYMPHOCYTES 25.3 % (15-50); MCH 33.4 pg (26.0-34.0); MCHC 34.1 g/dL (31.0-37.0); MCV 97.9 fL (80.0-100.0); MEAN PLATELET VOLUME 9.1 fL (7.4-10.4); MONOCYTES 8.7 % (2-11); NEUTROPHILS 65.3 % (40-80); PLATELET COUNT 228 10x3/uL (130-400); RBC 4.31 10x6/uL (4.00-5.40); RDW 12.4 % (11.5-14.5); WBC 5.8 10x3/uL (4.8-10.8)
[2020-03-14 22:43] LABS: ANION GAP 11.6 mmol/L (8-16); CALCIUM 8.7 mg/dL (8.5-10.1); CARBON DIOXIDE 27.7 mmol/L (21.0-32.0); POTASSIUM - SERUM 3.3 mmol/L (3.5-5.1)
[2020-03-14 22:55] LABS: ALBUMIN 3.6 g/dL (3.4-5.0); BILIRUBIN - TOTAL 0.57 mg/dL (0.2-1.3); PROTEIN - SERUM 7.3 g/dL (6.4-8.2)
[2020-03-14 23:52] VITALS: BP 117/79
== END 2020-03-14 23:50 | disposition home or self-care (01) ==
LOC: D.ER 20:28
PROVIDERS: Emergency Medicine
DX: J44.9 Chronic obstructive pulmonary disease, unspecified (principal); F41.9 Anxiety disorder, unspecified; Z72.0 Tobacco use; G62.9 Polyneuropathy, unspecified; Z86.73 Personal history of transient ischemic attack (TIA), and cerebral infarction without residual deficits

== ENCOUNTER 2020-03-25 13:35 | Inpatient (IN) | payer MEDICAID ==
[~2020-03-25] VITALS: Ht 172.7 cm; Wt 58.4 kg
[2020-03-25] VITALS (9 sets, daily range): BP systolic 91–129; BP diastolic 59–85; BMI 19.0
--- NOTE | 2020-03-25 14:02 | NUR ---
PATIENT IN W C/O CHEST TIGHTNESS AND BILATERAL RIB PAIN THAT STARTED YESTERDAY, DENIES INJURY. PATIENT IS VERY ANXIOUS, SEEMED TO HELP WHEN SHE WAS PLACED ON OXYGEN VIA NC, CALL LIGHT WITHIN REACH.
[2020-03-25 14:16] LABS: BASOPHILS 0 % (0-2); EOSINOPHILS 0 % (0-7); HEMATOCRIT 40.7 % (36.0-48.0); HEMOGLOBIN 14.2 g/dL (12-16); IMMATURE GRANULOCYTES 0.2 % (0-5); LYMPHOCYTES 7.9 % (15-50); MCH 32.9 pg (26.0-34.0); MCHC 34.9 g/dL (31.0-37.0); MCV 94.4 fL (80.0-100.0); MEAN PLATELET VOLUME 8.6 fL (7.4-10.4); MONOCYTES 5.5 % (2-11); NEUTROPHILS 86.4 % (40-80); PLATELET COUNT 227 10x3/uL (130-400); RBC 4.31 10x6/uL (4.00-5.40); RDW 12.1 % (11.5-14.5)
[2020-03-25 14:19] LABS: CALC OSMOLALITY 253 mosm/kg (275-300); CALCIUM 9.1 mg/dL (8.5-10.1); CARBON DIOXIDE 23.6 mmol/L (21.0-32.0); CHLORIDE - SERUM 91 mmol/L (98-107); GLUCOSE 113 mg/dL (74-106); POTASSIUM - SERUM 3.7 mmol/L (3.5-5.1); SODIUM 126 mmol/L (136-145); UREA NITROGEN 13 mg/dL (7-18); eGFR NON AFRICAN AMERICAN 61 mL/min (90-120)
[2020-03-25 14:20] LABS: INR 1.14 (0.85-1.17); PROTIME 14.6 SECONDS (11.6-15.0)
[2020-03-25 14:21] LABS: APTT 29.1 SECONDS (22.8-39.4)
[2020-03-25 14:35] LABS: ALBUMIN 3.2 g/dL (3.4-5.0); ALKALINE PHOSPHATASE 80 U/L (30-120); ALT (SGPT) 17 U/L (10-68); BILIRUBIN - TOTAL 1.26 mg/dL (0.2-1.3); CKMB 1.2 U/L (0.0-3.6); CREATINE KINASE 72 UL (21-215); MAGNESIUM - SERUM 1.8 mg/dL (1.8-2.4); PROTEIN - SERUM 6.9 g/dL (6.4-8.2)
[2020-03-25 14:38] LABS: LIPASE 45 U/L (73-393); TROPONIN-I < 0.017 ng/mL (0.000-0.060)
[2020-03-25 14:56] LABS: BILIRUBIN NEGATIVE (NEGATIVE); GLUCOSE NEGATIVE (NEGATIVE); KETONE MODERATE mg/dL (NEGATIVE); NITRITE POSITIVE (NEGATIVE); UROBILINOGEN NORMAL (NORMAL)
[2020-03-25 14:57] LABS: BACTERIA MANY /hpf (NEGATIVE); EPITHELIAL CELLS 0-5 /hpf (0-5); RED CELLS - URINE 0-5 /hpf (0-5)
--- NOTE | 2020-03-25 18:01 | NUR ---
REPORT TO OZZY KAUFMAN
--- NOTE | 2020-03-25 18:05 | NUR ---
TRANSPORTED TO ICU # [id number], CONDITION STABLE. NS INFUSING @ 125 ML/HR
--- NOTE | 2020-03-25 18:43 | NUR ---
3036 QUICK START COMPLETE. REMAINS NPO FOR PROCEEDURE TONIGHT WITH DR UGARTE.
--- NOTE | 2020-03-25 19:05 | NUR ---
TELE TECH AT BEDSIDE NEW ORDERS FOR PREOP RECEIVED. PT AWAKE ALERT AND ORIENTED. VSS HYPOTENSION NOTED, 10/10 BILAT UPPER QUADRANT ABDOMINAL PAIN. CPOC
--- NOTE | 2020-03-25 19:12 | NUR ---
PREOP MEDICATIONS ADMINISTERED - ADMISSION ASSESSMENT COMPLETED SEE FLOWSHEET SHIFT REPORT RECEIVED
--- NOTE | 2020-03-25 19:16 | NUR ---
1915 STATED SHE FAVORS JEHOVAS WITNESS YASMIN BUT DOES WANT PRBC TRANSFUSIONS IF NEEDED
--- NOTE | 2020-03-25 19:28 | NUR ---
PT OFF UNIT ACCOMPANIED BY OR STAFF
--- NOTE | 2020-03-25 19:36 | NUR ---
ANDREWS CALLED TO CHECK ON PATIENT, NOTIFIED HIM THAT I COULD NOT GIVE OUT ANY INFORMATION WITHOUT A SECURITY CALL IN CODE. TOOK HIS NAME AND NUMBER AND WILL DISCUSS WITH PATIENT UPON RETURN TO THE UNIT
--- NOTE | 2020-03-25 21:44 | NUR ---
PT STILL OFF OF THE UNIT
--- NOTE | 2020-03-25 22:49 | NUR ---
PT ARRIVED ON UNIT ACCOMPANIED BY RECOVERY ROOM STAFF - PT OPENS EYES TO SPEECH, FOLLOWS COMMANDS, MOANING INCOMPREHENSIBLE SOUNDS. NEW ORDERS RECIEIVED. PATIENT PLACED ON ICU MONITORS AT THIS TIME, VSS CPOC
--- NOTE | 2020-03-25 23:00 | NUR ---
2229 PATIENT AROUSES, OPA DISCONTINUED. MAINTAINING PATENT AIRWAY
--- NOTE | 2020-03-25 23:11 | NUR ---
SPOKE WITH DR. UGARTE ON THE PHONE AT THIS TIME, ORDERS CLARIFIED
[2020-03-25 23:39] LABS: BASOPHILS 0 % (0-2); EOSINOPHILS 0 % (0-7); HEMATOCRIT 36.9 % (36.0-48.0); HEMOGLOBIN 12.4 g/dL (12-16); IMMATURE GRANULOCYTES 0.2 % (0-5); LYMPHOCYTES 2.7 % (15-50); MCHC 33.6 g/dL (31.0-37.0); MCV 95.1 fL (80.0-100.0); MEAN PLATELET VOLUME 8.8 fL (7.4-10.4); MONOCYTES 2.7 % (2-11); NEUTROPHILS 94.4 % (40-80); PLATELET COUNT 211 10x3/uL (130-400); RBC 3.88 10x6/uL (4.00-5.40); RDW 12.2 % (11.5-14.5)
[2020-03-26] VITALS (24 sets, daily range): BP systolic 106–132; BP diastolic 65–90; Ht 172.7 cm; Wt 58.4 kg
--- NOTE | 2020-03-26 00:03 | NUR ---
DR UGARTE CALLED FOR PATIENT UPDATE. NEW ORDERS RECEIVED
[2020-03-26 00:24] LABS: ALBUMIN 2.6 g/dL (3.4-5.0); ALKALINE PHOSPHATASE 210 U/L (30-120); BILIRUBIN - TOTAL 1.08 mg/dL (0.2-1.3); CALCIUM 7.7 mg/dL (8.5-10.1); CARBON DIOXIDE 23.2 mmol/L (21.0-32.0); CHLORIDE - SERUM 98 mmol/L (98-107); CKMB 1.2 U/L (0.0-3.6); CREATINE KINASE 63 UL (21-215); MAGNESIUM - SERUM 1.7 mg/dL (1.8-2.4); PHOSPHOROUS 4.2 mg/dL (2.5-4.9); POTASSIUM - SERUM 3.9 mmol/L (3.5-5.1); PROTEIN - SERUM 5.4 g/dL (6.4-8.2); SODIUM 130 mmol/L (136-145); TROPONIN-I < 0.017 ng/mL (0.000-0.060); UREA NITROGEN 14 mg/dL (7-18)
[2020-03-26 00:25] LABS: ALT (SGPT) 173 U/L (10-68); CALC OSMOLALITY 265 mosm/kg (275-300); CREATININE - SERUM 0.7 mg/dL (0.6-1.3); GLUCOSE 170 mg/dL (74-106); eGFR NON AFRICAN AMERICAN > 90 mL/min (90-120)
--- NOTE | 2020-03-26 02:04 | NUR ---
VSS. PT AROUSES TO SPEECH AND FOLLOWS COMMANDS. NO ACUTE DISTRESS NOTED. VSS CPOC
--- NOTE | 2020-03-26 03:25 | NUR ---
REASSESSMENT COMPLETED SEE FLOWSHEET
--- NOTE | 2020-03-26 04:10 | NUR ---
DR UGARTE CALLED FOR PATIENT UPDATE, 1 HOUR I'S & O'S NOT LONGER NEEDED PUT CALL IF UOP FALLS BELOW 30 CC AN HOUR, NEW ORDERS RECEIVED
--- NOTE | 2020-03-26 05:00 | NUR ---
PT RESTING COMFORTABLY, EVEN RISE AND FALL OF CHEST VSS CPOC
[2020-03-26 05:53] LABS: BASOPHILS 0 % (0-2); EOSINOPHILS 0 % (0-7); HEMATOCRIT 30.6 % (36.0-48.0); HEMOGLOBIN 10.5 g/dL (12-16); IMMATURE GRANULOCYTES 0.3 % (0-5); LYMPHOCYTES 1.8 % (15-50); MCH 32.6 pg (26.0-34.0); MCHC 34.3 g/dL (31.0-37.0); MEAN PLATELET VOLUME 8.3 fL (7.4-10.4); MONOCYTES 3.3 % (2-11); NEUTROPHILS 94.6 % (40-80); PLATELET COUNT 190 10x3/uL (130-400); RBC 3.22 10x6/uL (4.00-5.40); RDW 12.3 % (11.5-14.5); WBC 11.2 10x3/uL (4.8-10.8)
[2020-03-26 05:59] LABS: UDS - AMPHET POSITIVE QUAL (NEGATIVE); UDS - BARB NEGATIVE QUAL (NEGATIVE); UDS - BENZO POSITIVE QUAL (NEGATIVE); UDS - COCAINE NEGATIVE QUAL (NEGATIVE); UDS - OPIATE POSITIVE QUAL (NEGATIVE); UDS - PCP NEGATIVE QUAL (NEGATIVE); UDS - THC NEGATIVE QUAL (NEGATIVE)
[2020-03-26 06:19] LABS: ALKALINE PHOSPHATASE 140 U/L (30-120); BILIRUBIN - TOTAL 0.72 mg/dL (0.2-1.3); CALC OSMOLALITY 266 mosm/kg (275-300); CALCIUM 7.7 mg/dL (8.5-10.1); CARBON DIOXIDE 28.1 mmol/L (21.0-32.0); CHLORIDE - SERUM 97 mmol/L (98-107); CKMB 1.1 U/L (0.0-3.6); CREATINE KINASE 62 UL (21-215); CREATININE - SERUM 0.8 mg/dL (0.6-1.3); GLUCOSE 159 mg/dL (74-106); MAGNESIUM - SERUM 1.9 mg/dL (1.8-2.4); PROTEIN - SERUM 6.4 g/dL (6.4-8.2); SODIUM 132 mmol/L (136-145); TROPONIN-I < 0.017 ng/mL (0.000-0.060); UREA NITROGEN 11 mg/dL (7-18); eGFR NON AFRICAN AMERICAN 79 mL/min (90-120)
[2020-03-26 06:26] LABS: ALBUMIN 3.6 g/dL (3.4-5.0); ALT (SGPT) 110 U/L (10-68); POTASSIUM - SERUM 3.3 mmol/L (3.5-5.1)
[2020-03-26 12:28] LABS: CREATININE - URINE 48.2 mg/dL (30-125); PRO/CRE RATIO URINE 0.5 mg/g; PROTEIN - URINE 25.2 mg/dL (0.0-11.9)
--- NOTE | 2020-03-26 13:09 | NUR ---
0700 REPORT RECIEVED AND CARE ASSUMED OF PATIENT.. SEE SHIFT FLOW SHEET FOR FINDINGS.. 0800 PT IS WIHTOUT CHANGES.. SLEEPING 0900 DR LADD IN TO SEE PATIENT AND ORDERS ARE RECIEVED AFTER UPDATE GIVEN.. 0915 MORPHINE GIVEN IV FOR PAIN.. 0930 PT IS REPOSITIONED 0945 PAIN MED REASSESMENT DONE 1200 ABDOMINAL X RAY DONE 1300 SISTER CALLED AND PATIENT CONSENT GIVEN TO GIVEN HER PASSWORD AND AN UPDATE..
[2020-03-26 13:37] LABS: CKMB 1.1 U/L (0.0-3.6); CREATINE KINASE 73 UL (21-215)
[2020-03-26 13:40] LABS: TROPONIN-I < 0.017 ng/mL (0.000-0.060)
--- NOTE | 2020-03-26 15:49 | NUR ---
1400 BS HAS ELEVATED SINCE LUNCH. INSULIN RATE INCREASED 1500 CONTINUE TO TITRATE INSULIN FOR BS..
--- NOTE | 2020-03-26 17:02 | NUR ---
1700 DIET SERVED FEEDING SELF.. CONTINUE TO TITRATE INSULIN FOR BS.. WITHOUT OTHER CHANGES..
--- NOTE | 2020-03-26 17:07 | NUR ---
1500 URINE SENT TO LAB.. 1600 WIHTOUT OTHER CHANGES.. 1630 I AND O DONE.. VSS
--- NOTE | 2020-03-26 19:23 | NUR ---
bedside shift report completed, dr sanford at bedside, pt requested home med continuation. dr sanford acknowledged request, once dr outside of the room pt requesting medication for pain and anxiety. explained to patient that at this time i have no new orders for any pain or anxiety medications and that i will follow up with the md and administer medications as ordered. shift assessment completed see flowsheet vss cpoc
--- NOTE | 2020-03-26 19:28 | NUR ---
STAT SERUM POTASSIUM ORDERED PER PROTOCOL
--- NOTE | 2020-03-26 19:38 | NUR ---
POTASSIUM LAB DRAW FROM [facility] PER PROTOCOL, PT REQUESTING PAIN AND ANXIETY MEDICATION. PT EDUCATION PROVIDED AT THIS TIME REGARDING ORDERS AND MEDICATION ADMINISTRATION. PT RECEIVED ORAL CARE KIT PER REQUEST CO DRY MOUTH. VSS CPOC
--- NOTE | 2020-03-26 23:20 | NUR ---
DR UGARTE PAGED AT THIS TIME REGARDING PATIENT URINE OUTPUT
--- NOTE | 2020-03-26 23:23 | NUR ---
DR UGARTE RETURNED PAGE - NEW ORDERS RECEIVED
--- NOTE | 2020-03-26 23:30 | NUR ---
REASSESSMENT COMPLETED SEE FLOWSHEET
[2020-03-27] VITALS (25 sets, daily range): BP systolic 98–188; BP diastolic 58–105
--- NOTE | 2020-03-27 00:30 | NUR ---
CLAIM MANAGER TURNED OFF AT THIS TIME DUE TO PATIENT SEDATION STATUS. PT WAKES TO PHYSICAL STIMULI - RR > 12 - OBEYS COMMANDS, ANSWERS SOME QUESTIONS APPROPRIATELY MUST BE BE REAWOKEN FREQUENTLY.
--- NOTE | 2020-03-27 01:45 | NUR ---
PT RESTING COMFORTABLY. 150 CC URINE OUTPUT SINCE 0000 RR > 12 - WILL CONTINUE TO CLOSELY MONITOR
--- NOTE | 2020-03-27 03:30 | NUR ---
PT REASSESSMENT COMPLETED - PT AWAKE ALERT AND ORIENTED, REQUESTING PAIN MEDICATION AND PRN ANXIETY MEDICATION. SEE EMAR FOR ADMINISTRATION. HEAT SEALING MACHINE OPERATOR PUMP TURNED BACK ON AT THIS TIME INCREASED LOCK OUT INTERVAL FOR PATIENT SAFETY, WILL CONTINUE TO CLOSELY MONITOR
[2020-03-27 06:15] LABS: BASOPHILS 0 % (0-2); EOSINOPHILS 0 % (0-7); HEMATOCRIT 27.5 % (36.0-48.0); HEMOGLOBIN 9.1 g/dL (12-16); IMMATURE GRANULOCYTES 0.3 % (0-5); LYMPHOCYTES 13.1 % (15-50); MCH 32.2 pg (26.0-34.0); MCHC 33.1 g/dL (31.0-37.0); MEAN PLATELET VOLUME 8.5 fL (7.4-10.4); MONOCYTES 5.3 % (2-11); NEUTROPHILS 81.3 % (40-80); PLATELET COUNT 176 10x3/uL (130-400); RBC 2.83 10x6/uL (4.00-5.40); RDW 12.6 % (11.5-14.5)
[2020-03-27 06:22] LABS: MCV 97.2 fL (80.0-100.0); WBC 6.6 10x3/uL (4.8-10.8)
[2020-03-27 06:34] LABS: ALKALINE PHOSPHATASE 92 U/L (30-120); BILIRUBIN - TOTAL 0.37 mg/dL (0.2-1.3); CALCIUM 8.3 mg/dL (8.5-10.1); CARBON DIOXIDE 29.4 mmol/L (21.0-32.0); CHLORIDE - SERUM 102 mmol/L (98-107); CREATININE - SERUM 0.6 mg/dL (0.6-1.3); MAGNESIUM - SERUM 1.9 mg/dL (1.8-2.4); POTASSIUM - SERUM 3.5 mmol/L (3.5-5.1); PROTEIN - SERUM 5.9 g/dL (6.4-8.2); SODIUM 136 mmol/L (136-145); eGFR NON AFRICAN AMERICAN > 90 mL/min (90-120)
[2020-03-27 06:39] LABS: ALT (SGPT) 51 U/L (10-68); CALC OSMOLALITY 269 mosm/kg (275-300); GLUCOSE 99 mg/dL (74-106); PHOSPHOROUS 1.8 mg/dL (2.5-4.9); UREA NITROGEN 8 mg/dL (7-18)
--- NOTE | 2020-03-27 13:56 | NUR ---
0700 REPORT RECIEVED AND CARE ASSUMED OF PATIENT.. SEE FLOW SHEET FOR SHIFT ASSESMENT.. PT IS SLEEPING AND IS AROUSABLE COUNTY CORONER DILAUDID FOR PAIN CONTROL,,, IT IS NOTED THAT OFF GOING NURSE STATED THAT PATIENT WAS USING THE COUNTY CORONER HEAVILY AND SHE CHANGED THE DELIVERY TIMES .. 0900 PT REMAINS WITHOUT CHANGES,, 1000 DR PETERS IN TO SEE PATIENT... UPDATE IS GIVEN.. PT IS MORE AWAKE AND TELLING DR SHE NEEDS HER ATIVAN FOR HER NERVES,,, 1115 COUNTY CORONER RESET TO ORIGINAL SETTINGS ORDERED BY DR UGARTE,,, AND PT TEACHING DONE RE COUNTY CORONER.. ATIVEN GIVEN 1200 PT IS REQUESTING HER PURSE THAT IS ON HER BEDSIDE TABLE.. WHEN GIVEN TO PATIENT SHE STARTED PILFERING THRU IT AND THERE WERE SEVERAL UNMARKED BOTTLES OF PILLS IN THE PUSE.. THERE WERE ALSO 2 "TORCHES" THE PATIENT CALLED THEM AND SHE WAS ATTMPTING TO STRIKE THEM IN THE BED WITH HER O2 ON AND RUNNING.. AT THAT POINT THE 2 "TORCHES" A PACK OF CIGARETTES, AND 4 UNIDENTIFIED PILL BOTTLES WITH PILLS TAKEN FROM PATIENT ROOM PLACED IN A ZIPLCK BAG WITH HER PATIENT LABLE AFFIXED TO IT AND PLACED IN HER CASSETTE IN THE NURSES STATION... PT INSISTED ON KEEPING TO BAG/PURSE WITH HER.. IT CONTAINED HER CELL PHONE ,HAIRBRUSH, MASKING TAPE AND SOMETHING ELSE SHE WOULD NOT LET ANYONE SEE.. THESE ITEMS ARE LEFT WITH PATIENT.. 1300 PT IS AWAKE AND ON HER CELL PHONE..
--- NOTE | 2020-03-27 16:48 | NUR ---
1500 ASSESMENT DONE 1530 I AND O DONE
--- NOTE | 2020-03-27 17:59 | NUR ---
1730 COMPLETE CHG BATH GIVEN WITH LINEN CHANGE..DRESSING CHANGE TO ABDOMEN SURGICAL INCISION INCISION WITH SKIN RANDY IN PLACE WITHOUT REDNESS OR SWELLING... AT SITE.. MAI DRAIN SITES X2 REDRESSED AND BALL COMPRESSED GTUBE WITH SMALL AMOUNT OF BRIGHT RED BLOOD ON DRESSING .. CHANGESD ALSO PATIENT TOLERATED WELL AND ATIVAN GIVEN AFTER BATH
[2020-03-28] VITALS (24 sets, daily range): BP systolic 90–120; BP diastolic 59–92
--- NOTE | 2020-03-28 03:54 | NUR ---
1899- ASSESSMENT COMPLETED. REPORT REC'D. PATIENT C/O ABD PAIN. A/O X 4. PATIENT STATES SHE WANTS ICE CHIPS. BOWEL SOUNDS STILL ABSENT. MAI DRAIN X 2 TO RIGHT ABD, G TUBE DRAINING TO LEFT ABD (NO DRAINAGE). NG TUBE TO LEFT NARE TO SUCTION. PLACEMENT CHECKED AND VERIFIED. 1929- DR. UGARTE HERE. STATES PATIENT CAN HAVE ICE CHIPS. PATIENT CONT TO ASK FOR POPSICLES, BROTH, AND COFFEE. STATES SHE IS VERY HUNGRY. ATTEMPTED TO EDUCATE BUT PATIENT STATES SHE WOULD BE FINE WITH A LITTLE FOOD. PATIENT C/O SEVERE PAIN. DR. UGARTE TO ADD IV TYLENOL.
--- NOTE | 2020-03-28 04:02 | NUR ---
2100- PATIENT STATES SHE NEEDS HER PO HYDROCODONE THAT SHE GETS AT HOME, EDUCATED PATIENT ON PAIN MEDICATION HERE. 2300- REPOSITIONED. C/O ABD. STATES SHE NEEDS MORE MEDS 2330-REQUEST TO HAVE PHENERGAN ORDERED. STATES SHE IS NAUSEOUS. GIVEN ORDERED ZOFRAN. 0100-EYES CLOSED, ARROUSES TO TOUCH. REPOSITIONED. 3210-RO-[id number] COMPLETED. NO CHANGES SINCE LAST ASSESSMENT. VSS.
[2020-03-28 06:34] LABS: BASOPHILS 0 % (0-2); EOSINOPHILS 0.6 % (0-7); HEMATOCRIT 26.9 % (36.0-48.0); HEMOGLOBIN 8.8 g/dL (12-16); IMMATURE GRANULOCYTES 0.2 % (0-5); LYMPHOCYTES 22.4 % (15-50); MCH 32.2 pg (26.0-34.0); MCHC 32.7 g/dL (31.0-37.0); MCV 98.5 fL (80.0-100.0); MEAN PLATELET VOLUME 8.7 fL (7.4-10.4); MONOCYTES 7.8 % (2-11); PLATELET COUNT 202 10x3/uL (130-400); RBC 2.73 10x6/uL (4.00-5.40); RDW 12.4 % (11.5-14.5)
[2020-03-28 06:51] LABS: ALBUMIN 2.5 g/dL (3.4-5.0); ALKALINE PHOSPHATASE 81 U/L (30-120); ALT (SGPT) 35 U/L (10-68); BILIRUBIN - TOTAL 0.34 mg/dL (0.2-1.3); CALC OSMOLALITY 270 mosm/kg (275-300); CALCIUM 8.2 mg/dL (8.5-10.1); CARBON DIOXIDE 32.3 mmol/L (21.0-32.0); CHLORIDE - SERUM 101 mmol/L (98-107); CREATININE - SERUM 0.6 mg/dL (0.6-1.3); GLUCOSE 100 mg/dL (74-106); POTASSIUM - SERUM 3.6 mmol/L (3.5-5.1); PROTEIN - SERUM 5.4 g/dL (6.4-8.2); SODIUM 136 mmol/L (136-145); UREA NITROGEN 11 mg/dL (7-18); eGFR NON AFRICAN AMERICAN > 90 mL/min (90-120)
[2020-03-28 06:52] LABS: WBC 4.9 10x3/uL (4.8-10.8)
--- NOTE | 2020-03-28 07:30 | NUR ---
REPORT RECEIVED. PT RESTING QUIETLY. PT HAS A RIGHT IJ WITH PROCAL AND PROTONIX INFUSING. PT IS ON O2 AT 2L. HAS NG TUBE TO LEFT NARE HOOKED UP TO SUCTION. PT HAS A VALERA. HAS 2 MAI DRAINS TO THE RIGHT SIDE OF HER ABD AND A G-TUBE TO GRAVITY ON THE LEFT SIDE OF THE ABD. PT DOES NOT HAVE BOWEL SOUNDS AT THIS TIME. VSS. WILL CONTINUE TO MONITOR.
[2020-03-28 07:56] LABS: PHOSPHOROUS 2.4 mg/dL (2.5-4.9)
--- NOTE | 2020-03-28 08:03 | NUR ---
Nutrition consult: Received consult from Dr. Gibson to begin TPN. Chart reviewed; labs reviewed Pt currently on ProcalAmine @ 75 ml/hr TPN ordered. Will need to stop procalAmine when TPN begins Thank you for the consult. RDN following.
--- NOTE | 2020-03-28 08:38 | NUR ---
CALLED PHARMACY TO GET LIPIDS SENT UP TO HANG ON PT.
--- NOTE | 2020-03-28 09:57 | NUR ---
LIPIDS HAVE STILL NOT BEEN BROUGHT UP TO HANG ON PT.
--- NOTE | 2020-03-28 12:34 | NUR ---
COMPLAINS OF PAIN. REQUESTS DILAUDID AND ATIVAN. GIVEN PER ORDER. VSS. WILL CONTINUE TO MONITOR.
--- NOTE | 2020-03-28 14:45 | NUR ---
PT RESTING QUIETLY. VSS. WILL CONTINUE TO MONITOR.
--- NOTE | 2020-03-28 16:30 | NUR ---
PAIN MEDICATION GIVEN PER REQUEST. ICE CHIPS GIVEN TO PT. TOLD IN REPORT THAT IT WAS OKAYED BY DR UGARTE. PT PERSISTENTLY ASKED FOR COFFEE. EXPLAINED TO PT THAT SHE WAS ON "GUT REST." DIDN'T SEEM TO UNDERSTAND. WILL CONTINUE TO MONITOR.
--- NOTE | 2020-03-28 18:00 | NUR ---
TPN INITIATED. PT RESTING QUIETLY. VSS. WILL CONTINUE TO MONITOR.
--- NOTE | 2020-03-28 18:17 | NUR ---
DR UGARTE ROUNDED ON PT.
--- NOTE | 2020-03-28 19:00 | NUR ---
PT ASKING FOR PAIN AND ANXIETY MEDICATION. LET HER KNOW SHE HAS 30 MIN BEFORE IT IS DUE. SHE VERBALIZED UNDERSTANDING. VSS. SHE IS ALERT AND ORIENTED AND IS ASKING FOR COFFEE. EXPLAINED THAT HER DR DOES NOT WANT HER HAVING CLEAR LIQUIDS AT THIS TIME. VERBALIZED UNDERSTANDING. SHE SAID SHE HAS BEEN EATING ICE CHIPS. LET HER KNOW THAT SHE MIGHT BE HAVING A BARRIUM SWALLOW TOMORROW SO SHE NEEDS TO MAKE SURE TO NOT HAVE ANY ICE CHIPS AFTER MIDNIGHT. HER BED IS LOW AND CALL LIGHT IS WITHIN REACH.
--- NOTE | 2020-03-28 20:00 | NUR ---
PT IS RESTING WITH EYES CLOSED. RESPIRATIONS EVEN AND UNLABORED. VSS. SHE TOOK HER OXYGEN OFF AND HER 02 SAT IS 90%. PLACED NC 2L BACK ON HER. HER BED IS LOW AND CALL LIGHT IS WITHIN REACH.
--- NOTE | 2020-03-28 21:06 | NUR ---
PT CONTINUES TO REST WITH EYES CLOSED. RESPIRATIONS EVEN AND UNLABORED. VSS. HER OXYGEN SAT. IS 93% ON 2L NC. BED LOW. CALL LIGHT WITHIN REACH.
--- NOTE | 2020-03-28 22:00 | NUR ---
PT CURRENTLY RESTING WITH EYES CLOSED. RESPIRATIONS EVEN AND UNLABORED. VSS. SHE AROUSES EASILY WITH VERBAL STIMULI. THE BED IS LOW AND CALL LIGHT IS WITHIN REACH.
--- NOTE | 2020-03-28 23:02 | NUR ---
PT ASKING FOR COFFEE. RE-EDUCATED HER REGARDING THE IMPORTANCE OF NOT EATING OR DRINKING ANYTHING PER MD ORDER. SHE VERBALIZED UNDERSTANDING. SHE DENIES FURTHER NEEDS. NG TUBE TO LEFT NARE TO LIWS. LIGHT BROWN DRAINAGE NOTED. VALERA CATHETER IN PLACE WITH CLEAR YELLOW URINE IN THE DRAINAGE BAG. SHE HAS TPN AND A PROTONIX DRIP INFUSING TO HER RIGHT IJ. LEFT G-TUBE TO GRAVITY WITH GREENISH-BROWN DRAINAGE. MAI'S X 2 TO HER RIGHT ABDOMEN, COMPRESSED WITH A SMALL AMOUNT OF SEROSANGUINEOUS DRAINAGE. VSS. WILL CONTINUE TO MONITOR.
[2020-03-29] VITALS (9 sets, daily range): BP systolic 95–112; BP diastolic 67–84
--- NOTE | 2020-03-29 | NUR ---
PT LYING IN BED WITH EYES CLOSED. RESPIRATIONS EVEN AND UNLABORED. VSS. BED LOW AND CALL LIGHT WITHIN REACH.
[2020-03-29 06:37] LABS: BASOPHILS 0.2 % (0-2); EOSINOPHILS 1.9 % (0-7); HEMATOCRIT 29.5 % (36.0-48.0); HEMOGLOBIN 9.3 g/dL (12-16); IMMATURE GRANULOCYTES 0.2 % (0-5); LYMPHOCYTES 19.7 % (15-50); MCH 31.6 pg (26.0-34.0); MCHC 31.5 g/dL (31.0-37.0); MCV 100.3 fL (80.0-100.0); MEAN PLATELET VOLUME 8.4 fL (7.4-10.4); MONOCYTES 6.2 % (2-11); NEUTROPHILS 71.8 % (40-80); PLATELET COUNT 220 10x3/uL (130-400); RBC 2.94 10x6/uL (4.00-5.40); RDW 12.1 % (11.5-14.5); WBC 4.8 10x3/uL (4.8-10.8)
[2020-03-29 07:14] LABS: ALBUMIN 2.5 g/dL (3.4-5.0); ALKALINE PHOSPHATASE 97 U/L (30-120); CALC OSMOLALITY 277 mosm/kg (275-300); CALCIUM 8.2 mg/dL (8.5-10.1); CARBON DIOXIDE 35.1 mmol/L (21.0-32.0); CHLORIDE - SERUM 102 mmol/L (98-107); CREATININE - SERUM 0.6 mg/dL (0.6-1.3); GLUCOSE 127 mg/dL (74-106); MAGNESIUM - SERUM 1.9 mg/dL (1.8-2.4); POTASSIUM - SERUM 3.3 mmol/L (3.5-5.1); PROTEIN - SERUM 5.5 g/dL (6.4-8.2); SODIUM 138 mmol/L (136-145); T4 THYROXINE 6.3 ug/dL (4.7-13.3); UREA NITROGEN 12 mg/dL (7-18); eGFR NON AFRICAN AMERICAN > 90 mL/min (90-120)
[2020-03-29 07:15] LABS: ALT (SGPT) 26 U/L (10-68)
--- NOTE | 2020-03-29 09:30 | NUR ---
Nutrition follow-up: Chart and labs reviewed TPN @ 60 ml/hr with 20% 250 ml intralipids Q 48 hours K: 3.3 -> recommend K rider Will continue current TPN and reassess 03/30/20 RDN following.
--- NOTE | 2020-03-29 17:15 | NUR ---
MORAIMA THOMPSON'Renée ORDERED 750 CC IN BAG. MAI Patel DC'Renée.TRINY THOMPSON'Renée.
--- NOTE | 2020-03-29 19:45 | NUR ---
PT SITTING UP IN BED WITHOUT DISTRESS, AOX4. RIGHT IJ INFUSING NS @ KVO, PROTONIX @ 10, TPN @ 60. ML INCISION CDI, G TUBE IN PLACE DRAINING TO GRAVITY. PT REQUESTED AND GIVEN DILAUDID PO FOR PAIN 09/03. STATES HER ABD IS ACHING AT INCISION SITE. DENIES NAUSEA. PT HAS REQUESTED AND BEEN GIVEN JELLO, BROTH, TWO CUPS OF COFFEE, AND [place] SODA THE LAST HOUR. ASKING FOR SOLID FOOD. REMINDED AND EDUCATED PT ON LIQUID DIET. VERBALIZED UNDERSTANDING. WILL CTM
--- NOTE | 2020-03-29 20:30 | NUR ---
PT ASKING FOR MORE PAIN MEDICATION, STATES SHE IS STILL HURTING. EDUCATED PT ON PO PAIN MED AND THAT IT TAKES A LITTLE LONGER TO WORK THAN THE IV MED SHE WAS GETTING, VERBALIZED UNDERSTANDING. PT ASKING FOR TOAST OR ICE CREAM. TOLD PT WAS IS ON A CLEAR LIQUID DIET. REQUESTED AND GIVEN POPSICLE
--- NOTE | 2020-03-29 23:30 | NUR ---
PT STATES PAIN 10/, GAVE DILAUDID ORDERED. PT WANTING SOLID FOOD. TOLD PT AGAIN SHE IS ON LIQUID DIET AND WHAT SHE CAN HAVE. PT WANTING TOAST OR CANDY BAR STILL. STATES SHE IS WANTING SOMETHING SWEET. TOLD PT HER OPTIONS FOR CLEAR LIQUID. PT AGAIN SAYS SHE WANTS CANDY BAR AND IS TIRED OF POPSICLES. PT HAS HAD 4 POPSICLE ON LAST COUPLE HOURS. OFFERED PT WHAT WE HAD FOR CLEAR LIQUID AND PT REQUESTED ANOTHER [place] SODA. DENIES OTHER NEEDS WILL CTM
[2020-03-30 04:00] VITALS: BP 104/71
[2020-03-30 05:56] LABS: BASOPHILS 0.2 % (0-2); HEMATOCRIT 28.3 % (36.0-48.0); HEMOGLOBIN 9.2 g/dL (12-16); IMMATURE GRANULOCYTES 0.2 % (0-5); LYMPHOCYTES 20.1 % (15-50); MCH 32.2 pg (26.0-34.0); MCHC 32.5 g/dL (31.0-37.0); MEAN PLATELET VOLUME 8.4 fL (7.4-10.4); MONOCYTES 8.9 % (2-11); NEUTROPHILS 67.6 % (40-80); PLATELET COUNT 216 10x3/uL (130-400); RBC 2.86 10x6/uL (4.00-5.40); RDW 11.9 % (11.5-14.5); WBC 4.6 10x3/uL (4.8-10.8)
[2020-03-30 06:30] LABS: ALBUMIN 2.3 g/dL (3.4-5.0); ALKALINE PHOSPHATASE 88 U/L (30-120); ALT (SGPT) 20 U/L (10-68); BILIRUBIN - TOTAL 0.44 mg/dL (0.2-1.3); CALC OSMOLALITY 274 mosm/kg (275-300); CARBON DIOXIDE 32.9 mmol/L (21.0-32.0); CHLORIDE - SERUM 102 mmol/L (98-107); CREATININE - SERUM 0.6 mg/dL (0.6-1.3); GLUCOSE 139 mg/dL (74-106); MAGNESIUM - SERUM 2.1 mg/dL (1.8-2.4); PHOSPHOROUS 2.7 mg/dL (2.5-4.9); PROTEIN - SERUM 5.3 g/dL (6.4-8.2); SODIUM 137 mmol/L (136-145); UREA NITROGEN 11 mg/dL (7-18); eGFR NON AFRICAN AMERICAN > 90 mL/min (90-120)
--- NOTE | 2020-03-30 07:05 | NUR ---
Nutrition follow-up: Chart, labs reviewed TPN @ 60 ml/hr; 250 20% intralipids q 48 hours K remains low; TPN adjusted Pt started on clear liquid diet 5/5 RDN following.
--- NOTE | 2020-03-30 07:47 | NUR ---
PT LYING IN BED ASLEEP, GTUBE TO GRAVITY, ABD INCISIONS, CDI, WILL CHANGE TODDAY, PT K+ IS 3.0, WILL ADD REPLACEMENT PROTOCOL TO PT MORNING MEDS. RT IJ IS CDI. NO NEEDS VOICED AT THIS TIME, ASSUME PT CARE
[2020-03-30 08:00] VITALS: BP 110/74
[2020-03-30 12:00] VITALS: BP 120/79
--- NOTE | 2020-03-30 13:45 | NUR ---
Nutrition follow-up: TPN rated decreased to 40 ml/hr. RDN following.
--- NOTE | 2020-03-30 14:49 | NUR ---
ABD INCISIONS X 3, G-TUBE LEFT ABDOMEN. COCCYX BLANCHABLE REDNESS. REPOSITIONING Q 2 HOURS AND NEEDED. WOUND CARE MONITORING.
[2020-03-30 16:00] VITALS: BP 96/65
--- NOTE | 2020-03-30 17:14 | MORECARE ---
CASE MANAGEMENT DISCHARGE SUMMARY PATIENT: JUSTIN MILLAN UNIT: [id number] ADM DATE: 03/25/20 AGE: 54 : 67 SEX: F ROOM/BED: D[facility] AUTHOR: CHRISTOPHER CLAUDIO PHYSICIAN: REFERRING PHYSICIAN: DIMAS AGUIRRE MD DATE OF SERVICE: 03/30/20 Discharge Plan Patient Name: JUSTIN MILLAN Facility: [facility]:[place] : 1965 Planned Disposition: Anticipated Discharge Date: Discharge Date: Expected LOS: Initial Reviewer: [email or web address] Initial Review Date: 03/30/2020 Generated: 03/30/20 6:14 pm Patient Name: JUSTIN MILLAN Page 13707 at 9984 All edits/amendments must be made on the electronic document DICTATION DATE: 03/30/201713 CERTIFICATION TECHNICIAN: DELFINO 03/30/201713 RPT#: [id number] DC DATE: STATUS: ADM IN [facility] [address] [place] [address] END OF REPORT
--- NOTE | 2020-03-30 17:18 | OP ---
PATIENT NAME: JUSTIN MILLAN MEDICAL RECORD: [id number] :67 LOCATION:D.MS [id number] ADMISSION DATE:03/25/20 SURGEON: LAURA UGARTE MD DATE OF OPERATION: 03/25/2020 PREOPERATIVE DIAGNOSIS: Pneumoperitoneum. POSTOPERATIVE DIAGNOSES: 1. 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 2. Diffuse peritonitis. PROCEDURES: 1. Exploratory laparotomy with resection of the disrupted gastrojejunal anastomosis. 2. Partial gastric resection. 3. Partial small bowel resection. 4. Creation of a new gastrojejunal anastomosis. 5. Placement of a 24-Australian gastrostomy tube in the unused portion of the stomach (a large gastric remnant). 6. Placement of right internal jugular triple lumen central venous catheter for postoperative medications including TPN. SURGEON: Laura Ugarte MD FOOT PIECE ASSEMBLER: None. BLOOD LOSS: Please see the anesthesia sheet. COMPLICATIONS: None. DRAINS: 19-Australian closed suction drains times 2. The risks, possible complications and alternatives to the procedure were explained to the patient. She elects to proceed. The discussion specifically included, but was not limited to, bleeding requiring emergency reoperation, infection, and possibility of colostomy formation. OPERATIVE COURSE: The patient was conveyed to the operating room emergently on 03/25/2020. General anesthesia was induced by the anesthesia staff. The abdomen was sterilely prepped and draped. An upper midline incision was accomplished. I dissected sharply down to the linea alba, which was incised. The peritoneal cavity was entered sharply. An Jack retractor was placed. I took down the anterior portion of the triangular ligament of the liver. Abdominal survey was undertaken. The colon contained stool. I noted no evidence of feculent material in the abdomen and no evidence of any feculent smell. There was pus in the upper abdomen. There was no bilious appearing material. There was purulence in the left upper quadrant, right upper quadrant, and evidence of peritonitis in the upper abdomen. I examined the duodenum. I incised along the right white line of Toldt. I kocherized the duodenum. I noted no evidence of a duodenal ulcer. I examined the unused portion of the stomach (gastric remnant) and noted no evidence of a perforation here either. I ran the small bowel. I noted no evidence of a perforation of the small bowel until I approached the gastrojejunal anastomosis, OPERATIVE REPORT [id number] JUSTIN MILLAN which was stuck to the posterior aspect of the left lateral segment of the liver. Here, I dissected it off of the liver. I was then looking at the anterior portion of the gastrojejunal anastomosis. About half of it was completely disrupted. The stomach at this site was very indurated and swollen. The jejunum was swollen. It was indurated but less so than the stomach. I completed the disruption by just pinching the posterior wall with my fingers. It was obvious that I was going to need to resect some stomach as well as small bowel and reanastomose the jejunum and stomach. I took 2 Allises and TA 60 stapler and I stapled away the open portion of the stomach. I then took down some of the mesentery of the proximal jejunum and this was done with the Super Jaw EnSeal device. I then stapled across the small bowel here with a VU-75 stapler. I then created a small gastrotomy. Through the gastrotomy, I advanced anvil of the EEA stapler. This was brought out on the anterior portion of the stomach. A pursestring suture of 3-0 Vicryl was then placed around the stem of the anvil. About a foot downstream from the stapled end of the jejunum, a small jejunotomy was accomplished. Through the jejunotomy, I advanced the EEA stapler. I brought this out near the staple line on the antimesenteric border of the jejunum. This was then docked with the anvil. I then tightened down on the EEA device and then fired. I then loosened the EEA device by opening it and removed it. There were 2 donuts in the EEA device. I then reinforced the gastrojejunal anastomosis with imbricating 3-0 Vicryl sutures. I had the nurse postal carrier advance a nasogastric tube through the gastrojejunal anastomosis and then down the Renea limb of the jejunum. The jejunotomy was then closed transversely with a single firing of the TA 60 stapler. We then placed the patient in the Trendelenburg position. We filled up the anterior portion of the abdomen with normal saline. I then took a noncrushing bowel clamp and clamped across the small bowel distal to the nasogastric tube and distal to the area where the jejunotomy had been accomplished. I had the nurse postal carrier then blow air down the nasogastric tube to check and make sure that the gastrojejunal anastomosis was airtight. Indeed, there was no bubbling of air from the jejunal closure site and no bubbling of air from the gastrojejunal anastomosis. Then, I instructed the nurse postal carrier to fixate the nasogastric tube in this orientation. In order to avoid a hernia around the jejunum as it comes through the transverse colon mesentery, I sutured the jejunum to the surrounding colonic mesentery with 3-0 Vicryls. This obliterated any space around the jejunum so that an internal hernia would not form here. We needed to decompress the unused portion of the stomach and also provide a way by which we could enterally feed the patient. An incision was accomplished inferior to the left costal margin. I then dissected down through the anterior abdominal wall. I brought out a large hemostat, brought up inside the abdomen and out through this abdominal wall defect. I checked the balloon on a 24-Australian gastrostomy tube. It was intact and there was no leakage of the OPERATIVE REPORT [id number] JUSTIN MILLAN normal saline. I then deflated the balloon. I brought it through the abdominal wall. A small gastrotomy was accomplished on the anterior portion of the stomach, at the stomach remnant. I then advanced the G-tube balloon through this gastrotomy. The balloon was then inflated. A pursestring suture of 3-0 Vicryl was then applied to the stomach around the jejunostomy tube. I then pulled up to the stomach, so that it was near the anterior abdominal wall. I then pushed down the flange. The flange was then sutured to the underlying skin with 2-0 nylons. I ensured the small bowel was not twisted on its mesentery. I ran the small bowel twice. There is no evidence of an enterotomy or seromyotomy. I irrigated all quadrants with normal saline. I brought out two 19-Australian closed suction drains through the right side of the abdomen between the anterior superior iliac spine and the right costal margin. One drain was placed over the liver with its tip near the gastrojejunal anastomosis. The other one was then placed transversely across the abdomen so that its tip was near the gastrojejunal anastomosis as well. Both drains were sutured to the skin with 2-0 silks. The midline fascia was closed with running looped #1 PDS from the cephalad and caudad directions. [place] were used for the cutaneous closure. A sterile dressing was applied. The patient was positioned in the Trendelenburg position. The right neck was sterilely prepped and draped. I tried to access the right internal jugular vein in an antegrade fashion, this was not successful. The patient had a very large external jugular vein. I was able to percutaneously access the right external jugular vein in an antegrade fashion. A guidewire passed easily. A small skin gianni was accomplished. A vessel dilator was used to dilate a subcutaneous tract. A 16-cm triple lumen central venous catheter was inserted to the hub. It was sutured in place times 3. All lumens flushed easily and aspirated dark, nonpulsatile blood. The patient was then conveyed to the post-anesthesia care unit after extubation. She was then conveyed to the intensive care unit in critical, but stable condition. TRANSINT:[id number] Voice Confirmation ID: [id number] DOCUMENT ID: [id number] LAURA UGARTE MD at 1718 CC: [id number] DICTATION DATE: 03/29/20 173 POSTER: 03/30/20 0102 [facility] IN [place] [id number] [place] [id number]
--- NOTE | 2020-03-30 19:40 | NUR ---
PT LYING IN BED SLEEPING WITHOUT DISTRESS. GTUBE DRAINING TO GRAVITY. RIGHT IJ INFUSING PROTONIX @ 10, TPN @ 40. WILL CTM
[2020-03-30 20:00] VITALS: BP 99/70
[2020-03-31 04:00] VITALS: BP 103/70
--- NOTE | 2020-03-31 05:33 | NUR ---
125ML EMPTIED FROM GTUBE BAG
[2020-03-31 06:13] LABS: BASOPHILS 0.2 % (0-2); EOSINOPHILS 4.3 % (0-7); HEMATOCRIT 30.7 % (36.0-48.0); HEMOGLOBIN 9.9 g/dL (12-16); IMMATURE GRANULOCYTES 0.4 % (0-5); LYMPHOCYTES 24.7 % (15-50); MCH 31.8 pg (26.0-34.0); MCHC 32.2 g/dL (31.0-37.0); MCV 98.7 fL (80.0-100.0); MEAN PLATELET VOLUME 8.7 fL (7.4-10.4); MONOCYTES 8.6 % (2-11); NEUTROPHILS 61.8 % (40-80); RBC 3.11 10x6/uL (4.00-5.40); RDW 12.2 % (11.5-14.5); WBC 5.1 10x3/uL (4.8-10.8)
[2020-03-31 06:31] LABS: CALC OSMOLALITY 278 mosm/kg (275-300); CALCIUM 8.6 mg/dL (8.5-10.1); CARBON DIOXIDE 31.3 mmol/L (21.0-32.0); CHLORIDE - SERUM 103 mmol/L (98-107); CREATININE - SERUM 0.6 mg/dL (0.6-1.3); GLUCOSE 108 mg/dL (74-106); PHOSPHOROUS 3.2 mg/dL (2.5-4.9); POTASSIUM - SERUM 3.7 mmol/L (3.5-5.1); SODIUM 139 mmol/L (136-145); UREA NITROGEN 12 mg/dL (7-18); eGFR NON AFRICAN AMERICAN > 90 mL/min (90-120)
[2020-03-31 06:35] LABS: PLATELET COUNT 265 10x3/uL (130-400)
[2020-03-31 08:00] VITALS: BP 99/71
--- NOTE | 2020-03-31 09:24 | MORECARE ---
CASE MANAGEMENT DISCHARGE SUMMARY PATIENT: JUSTIN MILLAN UNIT: [id number] ADM DATE: 03/25/20 AGE: 54 : 67 SEX: F ROOM/BED: D.2230 AUTHOR: CHRISTOPHER CLAUDIO PHYSICIAN: REFERRING PHYSICIAN: DIMAS AGUIRRE MD DATE OF SERVICE: 03/31/20 Discharge Plan Patient Name: JUSTIN MILLAN Facility: [facility]:[place] : 1965 Planned Disposition: Anticipated Discharge Date: Discharge Date: Expected LOS: Initial Reviewer: [id number] Initial Review Date: 03/30/2020 Generated: 03/31/20 10:23 am Comments DCP- Discharge Planning Updated by [id number]: Ana Maria Adame on 03/31/20 8:[address] Patient Name: JUSTIN MILLAN Admission Status: ER Accout number: [id number] Admission Date: 03-25-2020 : 1965 Admission Diagnosis:UNSPECIFIED ABDOMINAL PAIN Attending: DIMAS AGUIRRE Current LOS: 6 Anticipated DC Date: Planned Disposition: Primary Insurance: [place] Discharge Planning Comments: CM met with patient at bedside after explaining CM role and obtaining verbal consent. CM discussed availability / needs of home health, REHAB and medical equipment. PATIENT STATES MAY NEED HH WHEN READY FOR DC. ROMEL SIGNED. CM WILL FOLLOW AND ASSIST. Photograph Printer: Ana Maria Adame DCPIA - Discharge Planning Initial Assessment Updated by [email or web address]: Ana Maria Adame on 03/31/20 9:19 am * Is the patient Alert and Oriented? Yes * PCP ADRIENNE * Pharmacy [facility] * Preadmission Environment Home Alone * ADLs Independent * Additional services required to return to the preadmission environment? Yes * Can the patient safely return to the preadmission environment? No * Has this patient been hospitalized within the prior 30 days at any hospital? No Coverage Notice Reviewer: [id number] - Ana Maria Adame Notice Issued Date-Time: 03/31/2020 9:20 Notice Type: Patient Choice Letter Notice Delivered To: Patient Relationship to Patient: Manager Utilization Review Name: Delivery Method: HAND - Hand Delivered Stephany Days: Prior Verbal Notification: Recipient Understood Notice: Yes Recipient Signature: Yes Med Rec Note Co-signed by Attending: Coverage Notice Comment: HH ANY Last DP export: 03/30/20 4:14 pm Patient Name: JUSTIN MILLAN Page [phone] at 0924 All edits/amendments must be made on the electronic document DICTATION DATE: 03/31/20922 HOOKER OPERATOR: DELFINO 03/31/20922 RPT#: [id number] DC DATE: STATUS: ADM IN [facility] [address] [place] [address] END OF REPORT
[2020-03-31 12:00] VITALS: BP 104/70
--- NOTE | 2020-03-31 14:12 | NUR ---
PT C/O ABD PAIN AT AN 8 STATED SHE IS STARVING AND WOULD LIKE REAL FOOD. EXPLAINED TO PT THAT PER SHE IS ONLY CLEAR LIQUIDS AT THIS TIME. ADMINISTERED PRN PAIN MEDICATION. NO OTHER NEEDS AT THIS TIME CONTINUE WITH PLAN OF CARE
--- NOTE | 2020-03-31 15:55 | NUR ---
I have reviewed this patient and I concur with the Shift Assessment completed by the Licensed Practical Nurse today this shift.
[2020-03-31 16:00] VITALS: BP 105/66
[2020-03-31 20:00] VITALS: BP 83/57
--- NOTE | 2020-03-31 20:00 | NUR ---
PATIENT WATCHING TV IN BED. NO S/S OF ACUTE DISTRESS. PATIENT COMPLAINS OF PAIN, AND REQUESTS HER ANXIETY MEDS WELL. NO OBVIOUS SIGNS THAT PATIENT IS HURTING AND PATIENT REQUESTED COOKIES. PATIENT WAS EDUCATED THAT SHE IS ON A PUREED DIET AND CANNOT HAVE COOKIES, PUT CAN HAVE PUDDINGS AND SUCH. PATIENT WAS ALSO REMINDED THAT SHE CAN'T HAVE ANY ANXIETY OR PAIN MEDS UNTIL 2100. PATIENT BECAME TEARFUL AND SAID "I CAN'T GO ON THAT LONG". PATIENT HAS RIGHT IJ, NORMAL SALINE @ 5 ML/HR, PROTONIX @ 10 ML/HR, TPN @ 40 ML/HR. IV IS PATENT WITHOUT REDNESS, SWELLING, OR TENDERNESS AND DRESSING IS INTACT. PATIENT HAS A MIDLINE INCISION, DRESSING C/D/I. PATIENT HAS LEFT SIDE INCISION, DRESSING C/D/I. PATIENT HAS G-TUBE TO GRAVITY. PATIENT USES BED ABDI. CALL LIGHT WITHIN REACH. WILL CONTINUE TO MONITOR.
--- NOTE | 2020-03-31 21:56 | NUR ---
PATIENT COMPLAINS OF PAIN. PATIENT'S BLOOD PRESSURE IS 80/47 AND I DO NOT FEEL COMFORTABLE WITH GIVING HER DILAUDID SINCE I ALREADY GAVE HER THE SCHEDULED REMERON AND VALIUM- WHICH SHE REQUESTED. PATIENT STATES "MY STOMACHE HURTS SO BAD". PATIENT IS CURRENTLY IN BED EATING VANILLA PUDDING AND DRINKING A DEIT COKE WHILE HER PAIN IS A 10/10. WILL RECHECK BLOOD PRESSURE TO SEE IF I CAN ADMINISTER DILAUDID THEN. CALL LIGHT WITHIN REACH. WILL CONTINUE TO MONITOR.
--- NOTE | 2020-04-01 00:14 | NUR ---
I have reviewed this patient and I concur with the Shift Assessment completed by the Licensed Practical Nurse today this shift.
[2020-04-01 04:00] VITALS: BP 104/70
[2020-04-01 04:37] LABS: BASOPHILS 0.4 % (0-2); EOSINOPHILS 3.5 % (0-7); HEMATOCRIT 30.5 % (36.0-48.0); HEMOGLOBIN 9.8 g/dL (12-16); IMMATURE GRANULOCYTES 0.7 % (0-5); LYMPHOCYTES 30.7 % (15-50); MCH 31.8 pg (26.0-34.0); MCHC 32.1 g/dL (31.0-37.0); NEUTROPHILS 54.7 % (40-80); RBC 3.08 10x6/uL (4.00-5.40); RDW 12.5 % (11.5-14.5); WBC 5.4 10x3/uL (4.8-10.8)
[2020-04-01 04:56] LABS: CALC OSMOLALITY 278 mosm/kg (275-300); CARBON DIOXIDE 28.6 mmol/L (21.0-32.0); CHLORIDE - SERUM 103 mmol/L (98-107); CREATININE - SERUM 0.6 mg/dL (0.6-1.3); GLUCOSE 115 mg/dL (74-106); PHOSPHOROUS 3.4 mg/dL (2.5-4.9); POTASSIUM - SERUM 3.7 mmol/L (3.5-5.1); SODIUM 139 mmol/L (136-145); UREA NITROGEN 13 mg/dL (7-18); eGFR NON AFRICAN AMERICAN > 90 mL/min (90-120)
[2020-04-01 05:09] LABS: PLATELET COUNT 321 10x3/uL (130-400)
--- NOTE | 2020-04-01 07:05 | NUR ---
ALERT AND ORIENTED, RESTING IN BED. NO C/O PAIN. NO S/S OF ACUTE DISTRESS NOTED. UP WITH ASSIST. MIDLINE INCISION, DRESSING C/D/I. G-TUBE TO ABDOMEN. SCDS PRESENT. RIGHT IJ WITH PROTONIX INFUSING @ 10ML/HR, TPN @ 40ML/HR, AND NS INFUSING @ KVO. SITE PATENT WITHOUT REDNESS OR SWELLING. DENIES ANY NEEDS AT THIS TIME. CALL LIGHT IN REACH. WILL CONTINUE TO MONITOR.
[2020-04-01 08:00] VITALS: BP 93/69
--- NOTE | 2020-04-01 11:17 | NUR ---
Nutrition follow-up: TPN to taper off today Diet advanced to regular diet Labs reivewed Wt: 128# RDN following.
--- NOTE | 2020-04-01 11:51 | NUR ---
I have reviewed this patient and I concur with the Shift Assessment completed by the Licensed Practical Nurse today this shift.
[2020-04-01] MEDS ORDERED: HYDROCODON-ACE1 EA10 PO (11:59)
[2020-04-01 12:00] VITALS: BP 118/77
--- NOTE | 2020-04-01 12:57 | MORECARE ---
CASE MANAGEMENT DISCHARGE SUMMARY PATIENT: JUSTIN MILLAN UNIT: [id number] ADM DATE: 03/25/20 AGE: 54 : 67 SEX: F ROOM/BED: D.2230 AUTHOR: CHRISTOPHER CLAUDIO PHYSICIAN: REFERRING PHYSICIAN: DIMAS AGUIRRE MD DATE OF SERVICE: 04/01/20 Discharge Plan Patient Name: JUSTIN MILLAN Facility: [facility]:[place] : 1965 Planned Disposition: Anticipated Discharge Date: Discharge Date: Expected LOS: Initial Reviewer: [email or web address] Initial Review Date: 03/30/2020 Generated: 04/01/20 1:56 pm Comments DCP- Discharge Planning Updated by [email or web address]: Ana Maria Adame on 03/31/20 8:[address] Patient Name: JUSTIN MILLAN Admission Status: ER Accout number: [id number] Admission Date: 03-25-2020 : 1965 Admission Diagnosis:UNSPECIFIED ABDOMINAL PAIN Attending: DIMAS AGUIRRE Current LOS: 6 Anticipated DC Date: Planned Disposition: Primary Insurance: [place]ID [place] Discharge Planning Comments: CM met with patient at bedside after explaining CM role and obtaining verbal consent. CM discussed availability / needs of home health, REHAB and medical equipment. PATIENT STATES MAY NEED HH WHEN READY FOR DC. ROMEL SIGNED. CM WILL FOLLOW AND ASSIST. Java Software Developer: Ana Maria Adame DCPIA - Discharge Planning Initial Assessment Updated by [id number]: Ana Maria Adame on 03/31/20 9:19 am * Is the patient Alert and Oriented? Yes * PCP ADRIENNE * Pharmacy [facility] * Preadmission Environment Home Alone * ADLs Independent * Additional services required to return to the preadmission environment? Yes * Can the patient safely return to the preadmission environment? No * Has this patient been hospitalized within the prior 30 days at any hospital? No External Providers External Provider: [facility] Next Contact Date: Service Request Date: Service Type: Resolution: Reviewer: Comments: Coverage Notice Reviewer: [email or web address] Chris Adame Notice Issued Date-Time: 03/31/2020 9:20 Notice Type: Patient Choice Letter Notice Delivered To: Patient Relationship to Patient: Office Executive Name: Delivery Method: HAND - Hand Delivered Stephany Days: Prior Verbal Notification: Recipient Understood Notice: Yes Recipient Signature: Yes Med Rec Note Co-signed by Attending: Coverage Notice Comment: HH ANY Last DP export: 03/31/20 8:24 am Patient Name: JUSTIN MILLAN Page 50692 at 1257 All edits/amendments must be made on the electronic document DICTATION DATE: 04/01/20 1257 WRECKER OPERATOR: DELFINO 04/01/20 1257 RPT#: [id number] DC DATE: STATUS: ADM IN [facility] [address] [place] [address] END OF REPORT
[2020-04-01] MEDS ORDERED: VALIUM5 MG PO ×2 (13:01→13:20)
[2020-04-01] MEDS ORDERED: NEXIUM40 MG (13:02)
[2020-04-01] MEDS ORDERED: FLAGYL500 MG PO (13:06)
[2020-04-01] MEDS ORDERED: LEVAQUIN750 MG PO (13:06)
[2020-04-01] MEDS ORDERED: NEXIUM40 MG PO (13:19)
--- NOTE | 2020-04-01 13:37 | MORECARE ---
CASE MANAGEMENT DISCHARGE SUMMARY PATIENT: JUSTIN MILLAN UNIT: [id number] ADM DATE: 03/25/20 AGE: 54 : 67 SEX: F ROOM/BED: D.2230 AUTHOR: CHRISTOPHER CLAUDIO PHYSICIAN: REFERRING PHYSICIAN: DIMAS AGUIRRE MD DATE OF SERVICE: 04/01/20 Discharge Plan Patient Name: JUSTIN MILLAN Facility: [facility]:[place] : 1965 Planned Disposition: Anticipated Discharge Date: Discharge Date: Expected LOS: Initial Reviewer: [email or web address] Initial Review Date: 03/30/2020 Generated: 04/01/20 2:37 pm Comments DCP- Discharge Planning Updated by [id number]: Ana Maria Adame on 04/01/20 12:[address] Patient Name: JUSTIN MILLAN Admission Status: ER Accout number: [id number] Admission Date: 03-25-2020 : 1965 Admission Diagnosis:UNSPECIFIED ABDOMINAL PAIN Attending: DIMAS AGUIRRE Current LOS: 7 Anticipated DC Date: Planned Disposition: Primary Insurance: [place]ID [place] Discharge Planning Comments: [facility] WILL SEE PATIENT TOMORROW. Inventory Administrator: Ana Maria Adame DCP- Discharge Planning Updated by [email or web address]: Ana Maria Adame on 03/31/20 8:[address] Patient Name: JUSTIN MILLAN Admission Status: ER Accout number: [id number] Admission Date: 03-25-2020 : 1965 Admission Diagnosis:UNSPECIFIED ABDOMINAL PAIN Attending: DIMAS AGUIRRE Current LOS: 6 Anticipated DC Date: Planned Disposition: Primary Insurance: [place] Discharge Planning Comments: CM met with patient at bedside after explaining CM role and obtaining verbal consent. CM discussed availability / needs of home health, REHAB and medical equipment. PATIENT STATES MAY NEED HH WHEN READY FOR DC. ROMEL SIGNED. CM WILL FOLLOW AND ASSIST. Inventory Administrator: Ana Maria Adame DCPIA - Discharge Planning Initial Assessment Updated by [email or web address]: Ana Maria Adame on 03/31/20 9:19 am * Is the patient Alert and Oriented? Yes * PCP ADRIENNE * Pharmacy [facility] * Preadmission Environment Home Alone * ADLs Independent * Additional services required to return to the preadmission environment? Yes * Can the patient safely return to the preadmission environment? No * Has this patient been hospitalized within the prior 30 days at any hospital? No Coverage Notice Reviewer: [id number] Chris Adame Notice Issued Date-Time: 03/31/2020 9:20 Notice Type: Patient Choice Letter Notice Delivered To: Patient Relationship to Patient: Ophthalmology Technician Name: Delivery Method: HAND - Hand Delivered Stephany Days: Prior Verbal Notification: Recipient Understood Notice: Yes Recipient Signature: Yes Med Rec Note Co-signed by Attending: Coverage Notice Comment: HH ANY Last DP export: 04/01/20 11:57 am Patient Name: JUSTIN MILLAN Page [phone] at 1337 All edits/amendments must be made on the electronic document DICTATION DATE: 04/01/207 ELECTRICAL REPAIRER: DELFINO 04/01/20 1337 RPT#: [id number] DC DATE: STATUS: ADM IN [facility] [address] [place] [address] END OF REPORT
--- NOTE | 2020-04-01 15:29 | NUR ---
PATIENT DISCHARGED HOME VIA WHEELCHAIR WITH FAMILY. OZZY CAIN DISCONTINUED CENTRAL LINE, CATHETER TIP INTACT. WENT OVER DISCHARGE INSTRUCTIONS WITH PATIENT, VERBLIZED UNDERSTANDING. CHANGED DRESSINGS TO ABDOMEN. SHOWED PATIENT HOW TO EMPTY VALERA BAG. FOUND PATIENTS MEDICATION BOTTLES, CIGARETTES, 2 LIGHTERS. DENIES ANYTHING FURTHER. HOME HEALTH TO SEE HER TOMORROW.
--- NOTE | 2020-04-01 17:22 | MORECARE ---
CASE MANAGEMENT DISCHARGE SUMMARY PATIENT: JUSTIN MILLAN UNIT: [id number] ADM DATE: 03/25/20 AGE: 54 : 67 SEX: F ROOM/BED: D.2230 AUTHOR: SHANONDOC PHYSICIAN: REFERRING PHYSICIAN: DIMAS AGUIRRE MD DATE OF SERVICE: 04/01/20 Discharge Plan Patient Name: JUSTIN MILLAN Facility: [facility]:[place] : 1965 Planned Disposition: Anticipated Discharge Date: Discharge Date: 04/01/2020 Expected LOS: Initial Reviewer: [email or web address] Initial Review Date: 03/30/2020 Generated: 04/01/20 6:22 pm Comments DCP- Discharge Planning Updated by [email or web address]: Ana Maria Adame on 04/01/20 12:[address] Patient Name: JUSTIN MILLAN Admission Status: ER Accout number: [id number] Admission Date: 03-25-2020 : 1965 Admission Diagnosis:UNSPECIFIED ABDOMINAL PAIN Attending: DIMAS AGUIRRE Current LOS: 7 Anticipated DC Date: Planned Disposition: Primary Insurance: [place] Discharge Planning Comments: [facility] WILL SEE PATIENT TOMORROW. Food Chemist: Ana Maria Adame DCP- Discharge Planning Updated by [id number]: Ana Maria Adame on 03/31/20 8:[address] Patient Name: JUSTIN MILLAN Admission Status: ER Accout number: [id number] Admission Date: 03-25-2020 : 1965 Admission Diagnosis:UNSPECIFIED ABDOMINAL PAIN Attending: DIMAS AGUIRRE Current LOS: 6 Anticipated DC Date: Planned Disposition: Primary Insurance: [place]ID [place] Discharge Planning Comments: CM met with patient at bedside after explaining CM role and obtaining verbal consent. CM discussed availability / needs of home health, REHAB and medical equipment. PATIENT STATES MAY NEED HH WHEN READY FOR DC. ROMEL SIGNED. CM WILL FOLLOW AND ASSIST. Food Chemist: Ana Maria Adame DCPIA - Discharge Planning Initial Assessment Updated by [email or web address]: Ana Maria Adame on 03/31/20 9:19 am * Is the patient Alert and Oriented? Yes * PCP ADRIENNE * Pharmacy [facility] * Preadmission Environment Home Alone * ADLs Independent * Additional services required to return to the preadmission environment? Yes * Can the patient safely return to the preadmission environment? No * Has this patient been hospitalized within the prior 30 days at any hospital? No Coverage Notice Reviewer: [id number] Chris Adame Notice Issued Date-Time: 03/31/2020 9:20 Notice Type: Patient Choice Letter Notice Delivered To: Patient Relationship to Patient: Reports Developer Name: Delivery Method: HAND - Hand Delivered Stephany Days: Prior Verbal Notification: Recipient Understood Notice: Yes Recipient Signature: Yes Med Rec Note Co-signed by Attending: Coverage Notice Comment: HH ANY Last DP export: 04/01/20 12:37 pm Patient Name: JUSTIN MILLAN Page [phone] at 1722 All edits/amendments must be made on the electronic document DICTATION DATE: 04/01/201721 ANIMAL NUTRITION TEACHER: DELFINO 04/01/201721 RPT#: [id number] DC DATE:04/01/20 STATUS: DIS IN [facility] [address] [place] [address] END OF REPORT
== END 2020-04-01 15:32 | disposition home health service (06) | DRG 326 ==
LOC: D.ER 13:35 → D.MS 16:12 → D.ICU 16:12 → D.MS 03-29 12:05
PROVIDERS: Emergency Medicine; Internal Medicine Nephrology; Surgery; ADMIT Family Medicine; ATTEND Family Medicine
PROC: 0DTA0ZZ Resection of Jejunum, Open Approach (ICD-10-PCS; principal; 2020-03-25 18:48)
PROC: 0D160ZA Bypass Stomach to Jejunum, Open Approach (ICD-10-PCS; 2020-03-25 18:48)
DX: K63.1 Perforation of intestine (nontraumatic) (principal); K65.9 Peritonitis, unspecified; G92 Toxic encephalopathy; N39.0 Urinary tract infection, site not specified; E87.1 Hypo-osmolality and hyponatremia; F17.203 Nicotine dependence unspecified, with withdrawal; D62 Acute posthemorrhagic anemia; J44.9 Chronic obstructive pulmonary disease, unspecified; Z86.73 Personal history of transient ischemic attack (TIA), and cerebral infarction without residual deficits; F15.10 Other stimulant abuse, uncomplicated

== ENCOUNTER 2020-04-25 16:38 | Emergency (ER) | payer MEDICAID ==
[~2020-04-25] VITALS: Ht 172.7 cm; Wt 55.9 kg
[~2020-04-25 16:38] MED LIST changes: +FLAGYL500 MG PO; +HYDROCODON-ACE1 EA10 PO; +LEVAQUIN750 MG PO; +NEXIUM40 MG; +NEXIUM40 MG PO
[2020-04-25 16:48] VITALS: Ht 172.7 cm; Wt 55.9 kg
[2020-04-25 17:38] LABS: ANION GAP 16.5 mmol/L (8-16); CARBON DIOXIDE 25.1 mmol/L (21.0-32.0); CREATININE - SERUM 1.1 mg/dL (0.6-1.3); POTASSIUM - SERUM 3.6 mmol/L (3.5-5.1)
[2020-04-25 17:44] LABS: ALBUMIN 3.8 g/dL (3.4-5.0); BILIRUBIN - TOTAL 0.36 mg/dL (0.2-1.3); PROTEIN - SERUM 7.4 g/dL (6.4-8.2)
[2020-04-25 17:50] LABS: BASOPHILS 0.7 % (0-2); EOSINOPHILS 1.1 % (0-7); HEMATOCRIT 38.2 % (36.0-48.0); HEMOGLOBIN 12.6 g/dL (12-16); IMMATURE GRANULOCYTES 0.2 % (0-5); LYMPHOCYTES 39.3 % (15-50); MCH 32.1 pg (26.0-34.0); MCV 97.4 fL (80.0-100.0); MEAN PLATELET VOLUME 8.8 fL (7.4-10.4); MONOCYTES 10.6 % (2-11); NEUTROPHILS 48.1 % (40-80); PLATELET COUNT 271 10x3/uL (130-400); RBC 3.92 10x6/uL (4.00-5.40); RDW 12.9 % (11.5-14.5); WBC 6.1 10x3/uL (4.8-10.8)
[2020-04-25] MEDS ORDERED: MIRALAX17 GM PO (19:05)
[2020-04-25 19:23] LABS: UDS - AMPHET POSITIVE QUAL (NEGATIVE); UDS - BARB NEGATIVE QUAL (NEGATIVE); UDS - BENZO POSITIVE QUAL (NEGATIVE); UDS - COCAINE NEGATIVE QUAL (NEGATIVE); UDS - OPIATE POSITIVE QUAL (NEGATIVE); UDS - PCP NEGATIVE QUAL (NEGATIVE); UDS - THC NEGATIVE QUAL (NEGATIVE)
[2020-04-25 19:26] LABS: BILIRUBIN NEGATIVE (NEGATIVE); GLUCOSE NEGATIVE (NEGATIVE); KETONE NEGATIVE (NEGATIVE); NITRITE POSITIVE (NEGATIVE); UROBILINOGEN NORMAL (NORMAL)
[2020-04-25 19:27] LABS: BACTERIA MANY /hpf (NEGATIVE); EPITHELIAL CELLS 0-5 /hpf (0-5); RED CELLS - URINE 0-5 /hpf (0-5)
[2020-04-25] MEDS ORDERED: CIPRO500 MG PO (19:40)
[2020-04-25 20:00] VITALS: BP 116/88
== END 2020-04-25 20:00 | disposition home or self-care (01) ==
LOC: D.ER 16:38
PROVIDERS: Family Medicine
DX: K59.00 Constipation, unspecified (principal); R10.9 Unspecified abdominal pain; N39.0 Urinary tract infection, site not specified; Z86.73 Personal history of transient ischemic attack (TIA), and cerebral infarction without residual deficits; J44.9 Chronic obstructive pulmonary disease, unspecified; Z72.0 Tobacco use

== ENCOUNTER 2020-05-07 17:28 | Inpatient (IN) | payer MEDICAID ==
[~2020-05-07] VITALS: Ht 170.2 cm; Wt 61.6 kg
[~2020-05-07 17:28] MED LIST changes: +CIPRO500 MG PO; -NEXIUM40 MG
[2020-05-07 18:00] VITALS: BP 104/68
[2020-05-07 18:46] VITALS: BP 106/72
[2020-05-07 19:58] LABS: BASOPHILS 0.2 % (0-2); EOSINOPHILS 0.7 % (0-7); HEMATOCRIT 36.2 % (36.0-48.0); HEMOGLOBIN 11.7 g/dL (12-16); IMMATURE GRANULOCYTES 0.2 % (0-5); LYMPHOCYTES 18.7 % (15-50); MCH 31.8 pg (26.0-34.0); MCHC 32.3 g/dL (31.0-37.0); MCV 98.4 fL (80.0-100.0); MEAN PLATELET VOLUME 8.5 fL (7.4-10.4); MONOCYTES 4.6 % (2-11); NEUTROPHILS 75.6 % (40-80); PLATELET COUNT 285 10x3/uL (130-400); RBC 3.68 10x6/uL (4.00-5.40); WBC 8.3 10x3/uL (4.8-10.8)
[2020-05-07 20:05] LABS: APTT 28.8 SECONDS (22.8-39.4); INR 0.98 (0.85-1.17); PROTIME 12.9 SECONDS (11.6-15.0)
[2020-05-07 20:15] LABS: ANION GAP 6.2 mmol/L (8-16); CALCIUM 8.7 mg/dL (8.5-10.1); CARBON DIOXIDE 31.9 mmol/L (21.0-32.0); CREATININE - SERUM 0.9 mg/dL (0.6-1.3); POTASSIUM - SERUM 4.1 mmol/L (3.5-5.1)
[2020-05-07 20:20] LABS: ALBUMIN 3.5 g/dL (3.4-5.0); BILIRUBIN - TOTAL 0.25 mg/dL (0.2-1.3); PROTEIN - SERUM 6.7 g/dL (6.4-8.2)
--- NOTE | 2020-05-07 21:20 | NUR ---
RECEIVED TO ROOM VIA STRECHER FROM ER. ALERT,ORIENTED.SL TO LAC INTACT WITHOUT REDENSS OR EDEMA NOTED. COMPLAITNS OF PAIN TO LEFT HIP. MORPHINE 4 MG GIVEN IV PER ORDERS. ORIENTED TO ROOM. CL IN REACH
[2020-05-07 22:29] LABS: CREATINE KINASE 50 UL (21-215); MAGNESIUM - SERUM 2.2 mg/dL (1.8-2.4); TROPONIN-I < 0.017 ng/mL (0.000-0.060)
[2020-05-07 23:18] LABS: BILIRUBIN NEGATIVE (NEGATIVE); GLUCOSE NEGATIVE (NEGATIVE); KETONE NEGATIVE (NEGATIVE); NITRITE NEGATIVE (NEGATIVE); UROBILINOGEN NORMAL (NORMAL)
[2020-05-07 23:25] LABS: UDS - AMPHET NEGATIVE QUAL (NEGATIVE); UDS - BARB NEGATIVE QUAL (NEGATIVE); UDS - BENZO POSITIVE QUAL (NEGATIVE); UDS - COCAINE NEGATIVE QUAL (NEGATIVE); UDS - OPIATE POSITIVE QUAL (NEGATIVE); UDS - PCP NEGATIVE QUAL (NEGATIVE); UDS - THC NEGATIVE QUAL (NEGATIVE)
[2020-05-08 01:27] VITALS: BP 127/88; BMI 19.0
[2020-05-08 04:00] VITALS: BP 103/472
[2020-05-08 06:38] LABS: BASOPHILS 0.1 % (0-2); EOSINOPHILS 0.9 % (0-7); HEMATOCRIT 36.2 % (36.0-48.0); HEMOGLOBIN 11.6 g/dL (12-16); IMMATURE GRANULOCYTES 0.1 % (0-5); MCH 31.7 pg (26.0-34.0); MCV 98.9 fL (80.0-100.0); MEAN PLATELET VOLUME 8.6 fL (7.4-10.4); MONOCYTES 8.5 % (2-11); NEUTROPHILS 68.4 % (40-80); PLATELET COUNT 269 10x3/uL (130-400); RBC 3.66 10x6/uL (4.00-5.40); RDW 13.1 % (11.5-14.5)
[2020-05-08 07:43] LABS: ALBUMIN 3.2 g/dL (3.4-5.0); ALKALINE PHOSPHATASE 102 U/L (30-120); ALT (SGPT) 21 U/L (10-68); BILIRUBIN - TOTAL 0.35 mg/dL (0.2-1.3); CALC OSMOLALITY 270 mosm/kg (275-300); CALCIUM 8.7 mg/dL (8.5-10.1); CARBON DIOXIDE 28.6 mmol/L (21.0-32.0); CHLORIDE - SERUM 102 mmol/L (98-107); CKMB 1.1 U/L (0.0-3.6); CREATINE KINASE 51 UL (21-215); CREATININE - SERUM 0.7 mg/dL (0.6-1.3); GLUCOSE 87 mg/dL (74-106); MAGNESIUM - SERUM 2.2 mg/dL (1.8-2.4); POTASSIUM - SERUM 4.4 mmol/L (3.5-5.1); PROTEIN - SERUM 6.3 g/dL (6.4-8.2); SODIUM 137 mmol/L (136-145); TROPONIN-I < 0.017 ng/mL (0.000-0.060); eGFR NON AFRICAN AMERICAN > 90 mL/min (90-120)
[2020-05-08 07:44] LABS: UREA NITROGEN 7 mg/dL (7-18)
--- NOTE | 2020-05-08 08:00 | NUR ---
ALERT AND ORIENTED X3.PEDAL PULSES NOTED WITH LIMITED ROM TO LEFT LEG WITH NO PERIPHERAL EDEMA NOTED. VALERA CATH PATENT WITH PENNY URINE. DILAUDID GIVEN FOR PAIN MANAGEMENT AND EFFECTIVE. IV TO LEFT A/C WITH NO S/S OF INFECTION/INFILTRATION. SURGICAL CONSENTS SIGNED AND VERBALIZED UNDERSTANDING. ENCOURAGED TO USE CALL LIGHT FOR ASSSIT.
[2020-05-08 08:22] VITALS: BP 95/66
[2020-05-08 10:50] LABS: TROPONIN-I < 0.017 ng/mL (0.000-0.060)
[2020-05-08 11:33] LABS: CKMB 0.8 U/L (0.0-3.6); CREATINE KINASE 53 UL (21-215)
[2020-05-08 12:14] VITALS: BP 94/67
[2020-05-08 14:37] VITALS: BP 109/74
[2020-05-08 20:29] VITALS: BP 101/75
[2020-05-09 04:41] LABS: BASOPHILS 0.4 % (0-2); EOSINOPHILS 1.1 % (0-7); IMMATURE GRANULOCYTES 0.2 % (0-5); LYMPHOCYTES 20.7 % (15-50); MCHC 31.4 g/dL (31.0-37.0); MCV 98.6 fL (80.0-100.0); MEAN PLATELET VOLUME 8.6 fL (7.4-10.4); MONOCYTES 10.2 % (2-11); NEUTROPHILS 67.4 % (40-80); PLATELET COUNT 244 10x3/uL (130-400); RBC 2.94 10x6/uL (4.00-5.40); RDW 12.9 % (11.5-14.5)
[2020-05-09 05:03] LABS: HEMOGLOBIN 9.1 g/dL (12-16); WBC 5.6 10x3/uL (4.8-10.8)
[2020-05-09 05:10] LABS: ALBUMIN 2.4 g/dL (3.4-5.0); ALKALINE PHOSPHATASE 92 U/L (30-120); ALT (SGPT) 18 U/L (10-68); BILIRUBIN - TOTAL 0.21 mg/dL (0.2-1.3); CALC OSMOLALITY 269 mosm/kg (275-300); CALCIUM 7.8 mg/dL (8.5-10.1); CARBON DIOXIDE 32.1 mmol/L (21.0-32.0); CHLORIDE - SERUM 102 mmol/L (98-107); CREATININE - SERUM 0.7 mg/dL (0.6-1.3); GLUCOSE 97 mg/dL (74-106); MAGNESIUM - SERUM 1.9 mg/dL (1.8-2.4); POTASSIUM - SERUM 4.1 mmol/L (3.5-5.1); PROTEIN - SERUM 5.5 g/dL (6.4-8.2); SODIUM 136 mmol/L (136-145); UREA NITROGEN 7 mg/dL (7-18); eGFR NON AFRICAN AMERICAN > 90 mL/min (90-120)
[2020-05-09 06:17] VITALS: BP 96/67
--- NOTE | 2020-05-09 07:16 | NUR ---
I have reviewed this patient and I concur with the Shift Assessment completed by the Licensed Practical Nurse today this shift.
--- NOTE | 2020-05-09 08:24 | NUR ---
PATIENT CRYING AND UPSET THAT THEY CHANGED HER PAIN MEDICATION. PATIENT THOUGHT THEY WERE ADDING HYDROCODONES IN FOR INBETWEEN HER AVAILABLE HYDROMORPHONE. I EXPLAINED THAT WASN'T THE CASE. PT STATED THAT HYDROCODONES WASN'T GOING TO WORK. I CALLED [facility] APN WITH DR BLANCO AND WAS ADVISED TO CHANGE THE PAIN MEDICATION BACK TO HYDROMORPHONE 0.5 MG AND TO DISCONTINUE THE HYDROCODONES. THIS WAS DONE AND WILL GIVE PAIN MED PER ORDER ONCE IT CLEARS THE PYXIS. CL IN REACH. ICE PACK GIVEN FOR COMFORT. READJUSTED IN BED. WCTM
[2020-05-09 09:10] VITALS: BP 98/75
--- NOTE | 2020-05-09 10:14 | NUR ---
PATIENT ASLEEP. EASY TO AWAKEN. NO NEEDS AT THIS TIME. TM
--- NOTE | 2020-05-09 12:08 | OP ---
PATIENT NAME: JUSTIN MILLAN MEDICAL RECORD: [id number] :67 LOCATION:D.MS [id number] ADMISSION DATE:05/07/20 SURGEON: AMISH BLANCO MD DATE OF OPERATION: 05/08/2020 PREOPERATIVE DIAGNOSIS: Intertrochanteric fracture of the left hip. POSTOPERATIVE DIAGNOSIS: Intertrochanteric fracture of the left hip. PROCEDURE: Cephalomedullary fixation of left intertrochanteric hip fracture (gamma nail). SURGEON: Amish Blanco MD REMARKETING MANAGER: STONE Moraes INTRAOPERATIVE COMPLICATIONS: None. SUMMARY OF PATHOLOGIC FINDINGS: Consistent with the preoperative diagnosis, the patient had intertrochanteric fracture that required fixation as above. IMPLANTS USED: Gamma nail 3 system 125 with a 10 x 95 compression screw. OPERATIVE SUMMARY IN DETAIL: After obtaining the appropriate preoperative orthopedic surgery consent as well as anesthetic consultation, evaluation, and clearance, the patient was brought to the operating room and placed on the operating table in supine position. After adequate general laryngeal mask airway was administered, the patient was placed on the [facility] fracture table. She was held firmly to the [facility] fracture table. Right leg was placed in the well leg ny, left leg was placed in the traction boot. The fluoroscopy was brought in to visualize the fracture in both AP and lateral planes to be sure that there was a good reduction and there was. It was then prepped and draped in routine sterile fashion. Incision was made at the tip of the greater trochanter. An awl was then utilized to create a starting point. A ball-tipped guidewire was passed and reaming was performed. Again, all under fluoroscopic guidance. The gamma nail was then put into place at the appropriate level as seen on AP and lateral planes as was the guide pin for the compression screw. Center-center position was achieved within 2.5 mm of the articular surface. Having completed this, set screw was deployed. Compression was then undertaken compressing the fracture. Again, as seen on fluoroscopy. Having completed this, distal interlocking screw was put into place under fluoroscopic guidance. Final radiographs were taken and submitted for radiologist review. Wounds were irrigated and closed by STONE Moraes, with #1 Vicryl, 2-0 Vicryl and skin frederick. Sterile dressings were applied. The patient was awakened and taken to recovery room in stable condition. ESTIMATED BLOOD LOSS: 250 cc. TRANSINT:[id number] Voice Confirmation ID: [id number] DOCUMENT ID: [id number] OPERATIVE REPORT [id number] JUSTIN MILLAN MD, AMISH RUTLEDGE at 1208 CC: [id number] DICTATION DATE: 05/08/20 1340 ROLL FORMING MACHINE SET UP OPERATOR: 05/08/20 1624 ADM IN [place] [address] [place] [address]
[2020-05-09 12:58] VITALS: BP 98/75
--- NOTE | 2020-05-09 13:34 | NUR ---
PATIENT MEDICATIONS TAKEN TO PHARMACY. CHART COPY PLACED ON CHART. EMPTY MEDICATION BOTTLES INCLUDE DIAZEPAM 5 MG, METRONIDAZOLE 500 MG, LEVOFLOXACIN 750 MG, AND HYDROCOD/ACETAM 10-325 PLACED BACK IN HER BLACK PURSE. "HER KITCHEN SINK." EXPLAINED TO PATIENT HOW REHAB IS ONLY AVAILABLE THROUGH OUTPATIENT OR HOME HEALTH ACCORDING TO WHAT SLAB WORKER ANT TOLD ME. CL IN REACH. FAMILY ON THEIR WAY. [facility]
[2020-05-09 14:03] VITALS: Ht 170.2 cm; Wt 61.6 kg
--- NOTE | 2020-05-09 15:14 | NUR ---
PATIENT WAS TYPING ON PHONE. SETTING OFF OCCLUDED ALARM ON IV PUMP. RESTARTED HERSELF. TRYING TO TEXT AND BE ON HER PHONE BENDING HER LEFT AC. ASKED WHEN HER NEXT AVAILABLE PAIN MED WOULD BE. I REPEATED THAT I WROTE IT ON THE BOARD AND THAT IT WAS AVAILABLE AROUND 1644. SHE VOICED HER UNDERSTANDING. CL IN REACH. WCTM. PATIENT NOW APPEARS TO BE RESTING WITH EYES CLOSED I CAN SEE HER FROM MY LOCATION WITH HER DOOR OPEN.
--- NOTE | 2020-05-09 16:06 | MORECARE ---
CASE MANAGEMENT DISCHARGE SUMMARY PATIENT: JUSTIN MILLAN UNIT: [id number] ADM DATE: 05/07/20 AGE: 54 : 67 SEX: F ROOM/BED: D.2214 AUTHOR: CHRISTOPHER CLAUDIO PHYSICIAN: REFERRING PHYSICIAN: NICOLE STERLING MD DATE OF SERVICE: 05/09/20 Discharge Plan Patient Name: JUSTIN MILLAN Facility: [facility]:[place] : 1965 Planned Disposition: Inpatient Rehab Facility Anticipated Discharge Date: Discharge Date: Expected LOS: Initial Reviewer: [id number] Initial Review Date: 05/08/2020 Generated: 05/09/20 5:06 pm External Providers External Provider: [employer] [facility] Contact Date: Service Request Date: Service Type: Resolution: Reviewer: Comments: Patient Name: JUSTIN MILLAN Page 28813 at 1606 All edits/amendments must be made on the electronic document DICTATION DATE: 05/09/20 1606 CONFLICT RESOLUTION PROFESSIONAL: DELFINO 05/09/20 1606 RPT#: [id number] DC DATE: STATUS: ADM IN [facility] [address] [place] [address] END OF REPORT
[2020-05-09 16:45] VITALS: BP 99/68
--- NOTE | 2020-05-09 17:38 | NUR ---
IV THERAPY DC'ED FROM LEFT AC WITH TIP INTACT. PATIENT REQUEST. RESTARTED IV THERAPY IN LEFT FOREARM WITH 22 G. ONE ATTEMPT MADE. CL IN REACH. NO FURTHER NEEDS AT THIS TIME. WCTM
--- NOTE | 2020-05-09 19:46 | NUR ---
DRESSING CHANGE TO LEFT ABDOMEN DONE. TOLERATED WELL. DRESSING WAS CDI WITH NO DISCHARGE FROM THE MAI DRAIN REMOVAL. CL IN REACH. NO FURTHER NEEDS AT THIS TIME.
[2020-05-09 20:22] VITALS: BP 95/65
--- NOTE | 2020-05-09 20:32 | NUR ---
REC'D CHGE OF SHIFT WALKING ROUNDS.EYES CLOSED RESP. DEEP AND EVEN. 02 2L NC.INCENT. ROBIN. ENCOURAGED WHILE AWAKE VOICES UNDERSTANDING.DRSG DRY AND INTACT TO SURGICAL SITE. NEUROVASCULAR STATUS WNL.
[2020-05-10] VITALS (7 sets, daily range): BP systolic 96–107; BP diastolic 63–75
--- NOTE | 2020-05-10 04:49 | NUR ---
I have reviewed this patient and I concur with the Shift Assessment completed by the Licensed Practical Nurse today this shift.
[2020-05-10 06:15] LABS: BASOPHILS 0.1 % (0-2); EOSINOPHILS 0.8 % (0-7); HEMATOCRIT 29.6 % (36.0-48.0); HEMOGLOBIN 9.4 g/dL (12-16); IMMATURE GRANULOCYTES 0.3 % (0-5); LYMPHOCYTES 24.4 % (15-50); MCH 31.3 pg (26.0-34.0); MCHC 31.8 g/dL (31.0-37.0); MCV 98.7 fL (80.0-100.0); MEAN PLATELET VOLUME 8.6 fL (7.4-10.4); MONOCYTES 8.3 % (2-11); NEUTROPHILS 66.1 % (40-80); PLATELET COUNT 267 10x3/uL (130-400)
[2020-05-10 06:19] LABS: WBC 7.1 10x3/uL (4.8-10.8)
[2020-05-10 06:32] LABS: ALBUMIN 2.4 g/dL (3.4-5.0); ALKALINE PHOSPHATASE 92 U/L (30-120); ALT (SGPT) 16 U/L (10-68); BILIRUBIN - TOTAL 0.24 mg/dL (0.2-1.3); CALC OSMOLALITY 271 mosm/kg (275-300); CALCIUM 8.7 mg/dL (8.5-10.1); CARBON DIOXIDE 33.3 mmol/L (21.0-32.0); CHLORIDE - SERUM 102 mmol/L (98-107); CREATININE - SERUM 0.8 mg/dL (0.6-1.3); GLUCOSE 94 mg/dL (74-106); MAGNESIUM - SERUM 2.1 mg/dL (1.8-2.4); PHOSPHOROUS 3.4 mg/dL (2.5-4.9); POTASSIUM - SERUM 3.4 mmol/L (3.5-5.1); PROTEIN - SERUM 5.9 g/dL (6.4-8.2); SODIUM 137 mmol/L (136-145); UREA NITROGEN 6 mg/dL (7-18); eGFR NON AFRICAN AMERICAN 79 mL/min (90-120)
--- NOTE | 2020-05-10 10:00 | NUR ---
PATIENT BACK TO SLEEP. EASILY AROUSABLE. CL IN REACH. NO FURTHER NEEDS AT THIS TIME. WCTM
--- NOTE | 2020-05-10 16:25 | NUR ---
PATIENT REQUESTED SOME ORANGE SHERBERT AND ICE FOR HER DIET COKES. RECEIVED THESE ITEMS. CL IN REACH. WCTM
--- NOTE | 2020-05-10 20:30 | NUR ---
REC'D.CHGE OF SHIFT WALKING ROUNDS STATING CAN HAVE MY VALIUM AT 1999 SO BRING IT.DRSG DRY AND INTACT LEFT HIP FOOT PINK AND WARM.PEDAL PULSE PRESENT.STATWHEN I WIGGLE MY TOES PAIN SHOOTS UP MY HIP. ENCOURAGED WILL HAVE TO START MOVING MORE.WILL CONTINUE TO MONITOR FOR ANY CHGES IN NEUROVASCULAR STATUS AND FOLLOW CURRENT PLAN OF CARE
[2020-05-11] VITALS (7 sets, daily range): BP systolic 94–105; BP diastolic 49–71
[2020-05-11 04:53] LABS: BASOPHILS 0.1 % (0-2); EOSINOPHILS 1.5 % (0-7); HEMATOCRIT 28.3 % (36.0-48.0); HEMOGLOBIN 9.1 g/dL (12-16); IMMATURE GRANULOCYTES 0.1 % (0-5); LYMPHOCYTES 19.9 % (15-50); MCH 31.2 pg (26.0-34.0); MCHC 32.2 g/dL (31.0-37.0); MCV 96.9 fL (80.0-100.0); MEAN PLATELET VOLUME 8.8 fL (7.4-10.4); MONOCYTES 7.7 % (2-11); NEUTROPHILS 70.7 % (40-80); PLATELET COUNT 261 10x3/uL (130-400); RBC 2.92 10x6/uL (4.00-5.40); RDW 12.8 % (11.5-14.5); WBC 6.8 10x3/uL (4.8-10.8)
[2020-05-11 05:16] LABS: CALC OSMOLALITY 266 mosm/kg (275-300); CARBON DIOXIDE 30.8 mmol/L (21.0-32.0); CHLORIDE - SERUM 99 mmol/L (98-107); CREATININE - SERUM 0.7 mg/dL (0.6-1.3); GLUCOSE 95 mg/dL (74-106); PHOSPHOROUS 3.2 mg/dL (2.5-4.9); POTASSIUM - SERUM 3.5 mmol/L (3.5-5.1); SODIUM 134 mmol/L (136-145); eGFR NON AFRICAN AMERICAN > 90 mL/min (90-120)
[2020-05-11 05:17] LABS: ALBUMIN 2.4 g/dL (3.4-5.0); ALKALINE PHOSPHATASE 94 U/L (30-120); ALT (SGPT) 14 U/L (10-68); BILIRUBIN - TOTAL 0.19 mg/dL (0.2-1.3); CALCIUM 8.1 mg/dL (8.5-10.1); PROTEIN - SERUM 6.1 g/dL (6.4-8.2)
[2020-05-11 05:21] LABS: UREA NITROGEN 11 mg/dL (7-18)
--- NOTE | 2020-05-11 09:30 | NUR ---
PATIENT LINEN CHANGED. BED WAS WET. CL IN REACH. WCTM
[2020-05-11] MEDS ORDERED: DILAUDID2 MG PO (10:17)
[2020-05-11] MEDS ORDERED: ELIQUIS2.5 MG PO (10:17)
--- NOTE | 2020-05-11 13:19 | NUR ---
PATIENT SITTING UP WITH BED. CL IN REACH. NO NEEDS AT THIS TIME. WCTM
--- NOTE | 2020-05-11 15:30 | NUR ---
PATIENT VALERA REMOVED. 8 ML REMOVED FROM BALLOON. TOLERATED WELL. APPLIED MEDS PER EMAR. ROLLED ON HER OWN. CL IN REACH. BED ALARM ON. WCTM
[2020-05-12] VITALS: BP 95/58
--- NOTE | 2020-05-12 01:56 | NUR ---
1930) REC'D, AT CHGE OF SHIFT REC'ORLIN IV PAIN MED FROM 7AA/7P SHIFT.DRSG DRY AND INTACT LEFT HIP WIGGLES TO ES AND DORSIFLEXES ON COMMAND.PEDAL PULSE PRESENT.WILL CONTINUE TO MONITOR FOR ANY CHGES IN NEUROVASCULAR STATUS AND FOLLOW CURRENT PLAN OF CARE
[2020-05-12 04:00] VITALS: BP 95/63
--- NOTE | 2020-05-12 04:44 | NUR ---
I have reviewed this patient and I concur with the Shift Assessment completed by the Licensed Practical Nurse today this shift.
[2020-05-12 06:34] LABS: BASOPHILS 0.4 % (0-2); EOSINOPHILS 3.3 % (0-7); HEMATOCRIT 26.6 % (36.0-48.0); HEMOGLOBIN 8.5 g/dL (12-16); IMMATURE GRANULOCYTES 0.2 % (0-5); LYMPHOCYTES 14.4 % (15-50); MCH 31.1 pg (26.0-34.0); MCV 97.4 fL (80.0-100.0); MEAN PLATELET VOLUME 8.7 fL (7.4-10.4); MONOCYTES 6.7 % (2-11); PLATELET COUNT 300 10x3/uL (130-400); RBC 2.73 10x6/uL (4.00-5.40); WBC 5.7 10x3/uL (4.8-10.8)
[2020-05-12 07:03] LABS: ALBUMIN 2.2 g/dL (3.4-5.0); ALKALINE PHOSPHATASE 85 U/L (30-120); ALT (SGPT) 15 U/L (10-68); BILIRUBIN - TOTAL 0.26 mg/dL (0.2-1.3); CALC OSMOLALITY 268 mosm/kg (275-300); CARBON DIOXIDE 30.5 mmol/L (21.0-32.0); CHLORIDE - SERUM 101 mmol/L (98-107); CREATININE - SERUM 0.8 mg/dL (0.6-1.3); GLUCOSE 135 mg/dL (74-106); MAGNESIUM - SERUM 2.1 mg/dL (1.8-2.4); PHOSPHOROUS 3.5 mg/dL (2.5-4.9); POTASSIUM - SERUM 3.8 mmol/L (3.5-5.1); PROTEIN - SERUM 5.4 g/dL (6.4-8.2); SODIUM 134 mmol/L (136-145); UREA NITROGEN 10 mg/dL (7-18); eGFR NON AFRICAN AMERICAN 79 mL/min (90-120)
--- NOTE | 2020-05-12 08:00 | NUR ---
ASSESSMENT PER FLOW SHEET. PATIENT IS WITHOUT DISTRESS.SHE DENIES NEEDS AT PRESENT,BUT WANTS PAIN MEDS WHEN SHE CAN HAVE THEM.
[2020-05-12 09:32] VITALS: BP 95/56
--- NOTE | 2020-05-12 11:38 | NUR ---
ASSIST WITH BEDPAN. REDNESS NOTED TO BACK AND BUTTOCKS. NO OPEN AREAS.BUTT PASTE APPLIED. PATIENT INSTRUCTED SHE WILL LAY ON RIGHT SIDE AFTER BEDPAN USE.PT HAD CAME TO ROOM AND PATIENT DECLINED PT AT PRESENT. SHE STATES SHE IS HAVING PAIN.MEDS PER MAR. PATIENT HAD REQESTED PAIN MEDS AT 1100,BUT WHEN I WENT IN ROOM PATIENT WAS SLEEPING WITHOUT SIGNS OF DISTRESS OR PAIN.
[2020-05-12 13:17] VITALS: BP 90/58
--- NOTE | 2020-05-12 16:57 | MORECARE ---
CASE MANAGEMENT DISCHARGE SUMMARY PATIENT: JUSTIN CHIN UNIT: [id number] ADM DATE: 05/07/20 AGE: 54 : 66 SEX: F ROOM/BED: D.2214 AUTHOR: SHANON,DOC PHYSICIAN: REFERRING PHYSICIAN: NICOLE STERLING MD DATE OF SERVICE: 05/12/20 Discharge Plan Patient Name: JUSTIN CHIN Facility: [facility]:[place] : 1965 Planned Disposition: Inpatient Rehab Facility Anticipated Discharge Date: Discharge Date: Expected LOS: Initial Reviewer: [email or web address] Initial Review Date: 05/08/2020 Generated: 05/12/20 5:57 pm Comments DCP- Discharge Planning Updated by [id number]: Izzy Moore on 05/12/20 3:[address] 05/09: CM met with patient regarding DC plans. Patient states that she currently lives in an apartment, but is having her sisters close it out today. CM spoke with patient about HHS, Rehab, OP Therapy, SNF.because she wants to go into Rehab. CM encouraged patient to participate with physical therapy. Patient uses a cane. Denies the needs for HHS, because she states she can't take care of herself. Patient called her sister, Yvonne Jasmine ([phone]), who states neither of the two sisters can take her into their homes, due to their health problems. PCP: Dr. garcía. [facility]. CATHOLIC PRIEST, patient was independent with all ADL's. CM contacted [facility] [employer], spoke with Gertrude and faxed required information. [place] will continue to work on Rehab at this time. 04/09: faxed additional information to [employer].. 04/10: Faxed additional information to Gertrude with [facility]. DCP- Discharge Planning Updated by [id number]: Izzy Moore on 05/12/20 3:[address] CM was contacted by Gertrude with [facility] and states the facility cannot accept patient due to her not participating with physical therapy. CM contacted patient's sister, Yvonne Jasmine and Radha Ca, via speaker phone and informed them of same. CM spoke with both sister's regarding further DC plans. Informed both that the patient has been denied at [facility] and that this time, if they are unwilling to take the patient into their homes, then we need to discuss exterminator helper termite detention. Per Yvonne (sister), request that CM attempt to find placement in any nursing facility in [place]. CM will begin to blanket fax to the facilities in [place]. Coverage Notice Reviewer: [email or web address] - Izzy Moore Notice Issued Date-Time: 05/09/2020 8:45 Notice Type: Patient Choice Letter Notice Delivered To: Patient Relationship to Patient: Self Deputy Sheriff Bailiff Name: Justin Chin Delivery Method: HAND - Hand Delivered Stephany Days: Prior Verbal Notification: Recipient Understood Notice: Yes Recipient Signature: Yes Med Rec Note Co-signed by Attending: Coverage Notice Comment: Patient choice for [facility] Last DP export: 05/09/20 3:07 p Patient Name: JUSTIN CHIN Page [phone] at 1657 All edits/amendments must be made on the electronic document DICTATION DATE: 05/12/201656 RADIO SURVEY WORKER: DELFINO 05/12/201656 RPT#: [id number] DC DATE: STATUS: ADM IN [facility] [address] [place] [address] END OF REPORT
[2020-05-12 17:07] VITALS: BP 104/68
--- NOTE | 2020-05-12 19:40 | MORECARE ---
CASE MANAGEMENT DISCHARGE SUMMARY PATIENT: JUSTIN CHIN UNIT: [id number] ADM DATE: 05/07/20 AGE: 54 : 66 SEX: F ROOM/BED: D.2214 AUTHOR: SHANON,DOC PHYSICIAN: REFERRING PHYSICIAN: NICOLE STERLING MD DATE OF SERVICE: 05/12/20 Discharge Plan Patient Name: JUSTIN CHIN Facility: [facility]:[place] : 1965 Planned Disposition: Inpatient Rehab Facility Anticipated Discharge Date: Discharge Date: Expected LOS: Initial Reviewer: [email or web address] Initial Review Date: 05/08/2020 Generated: 05/12/20 8:39 pm Comments DCP- Discharge Planning Updated by [email or web address]: Izzy Moore on 05/12/20 3:[address] 05/09: CM met with patient regarding DC plans. Patient states that she currently lives in an apartment, but is having her sisters close it out today. CM spoke with patient about HHS, Rehab, OP Therapy, SNF.because she wants to go into Rehab. CM encouraged patient to participate with physical therapy. Patient uses a cane. Denies the needs for HHS, because she states she can't take care of herself. Patient called her sister, Yvonne Jasmine ([phone]), who states neither of the two sisters can take her into their homes, due to their health problems. PCP: Dr. garcía. [facility]acy[facility]. PROPOSAL DIRECTOR, patient was independent with all ADL's. CM contacted [facility], spoke with Gertrude and faxed required information. [place]ON will continue to work on Rehab at this time. 04/09: faxed additional information to [employer].. 04/10: Faxed additional information to Gertrude with [facility]. DCP- Discharge Planning Updated by [id number]: Izzy Moore on 05/12/20 3:[address] CM was contacted by Gertrude with [facility] and states the facility cannot accept patient due to her not participating with physical therapy. CM contacted patient's sister, Yvonne Jasmine and Radha Ca, via speaker phone and informed them of same. CM spoke with both sister's regarding further DC plans. Informed both that the patient has been denied at [facility] and that this time, if they are unwilling to take the patient into their homes, then we need to discuss [place] [facility]. Per Yvonne (sister), request that CM attempt to find placement in any nursing facility in [place]. CM will begin to blanket fax to the facilities in [place]. DCPIA - Discharge Planning Initial Assessment Updated by [email or web address]: Izzy Moore on 05/12/20 7:37 pm * Is the patient Alert and Oriented? Yes * PCP Dr. García * Pharmacy [facility] * Preadmission Environment Home Alone * ADLs Independent * List name and contact numbers for known caregivers / representatives who currently or will assist patient after discharge: Yvonne Jasmine (sister) [phone] Radha Mark sister) [phone] * Verbal permission to speak to the caregivers and representatives has been obtained from the patient. Yes * Please name any agencies selected above. [address] * Additional services required to return to the preadmission environment? Yes * Can the patient safely return to the preadmission environment? No * Has this patient been hospitalized within the prior 30 days at any hospital? No Coverage Notice Reviewer: [id number] - Izzy Moore Notice Issued Date-Time: 05/09/2020 8:45 Notice Type: Patient Choice Letter Notice Delivered To: Patient Relationship to Patient: Self Crossing Flagman Name: Justin Chin Delivery Method: HAND - Hand Delivered Stehpany Days: Prior Verbal Notification: Recipient Understood Notice: Yes Recipient Signature: Yes Med Rec Note Co-signed by Attending: Coverage Notice Comment: Patient choice for [facility] Last DP export: 05/12/20 3:57 p Patient Name: JUSTIN CHIN Page 48863 at 1940 All edits/amendments must be made on the electronic document DICTATION DATE: 05/12/201938 PIPE FINISHING SUPERVISOR: DELFINO 05/12/201938 RPT#: [id number] DC DATE: STATUS: ADM IN [facility] [address] [place] [address] END OF REPORT
[2020-05-12 20:00] VITALS: BP 91/71
[2020-05-13] VITALS: BP 106/61
[2020-05-13 04:00] VITALS: BP 93/63
[2020-05-13 05:22] LABS: BASOPHILS 0.6 % (0-2); EOSINOPHILS 5.6 % (0-7); HEMATOCRIT 27.4 % (36.0-48.0); HEMOGLOBIN 8.7 g/dL (12-16); IMMATURE GRANULOCYTES 0.2 % (0-5); LYMPHOCYTES 25.6 % (15-50); MCHC 31.8 g/dL (31.0-37.0); MCV 97.5 fL (80.0-100.0); MEAN PLATELET VOLUME 8.5 fL (7.4-10.4); PLATELET COUNT 293 10x3/uL (130-400); RBC 2.81 10x6/uL (4.00-5.40); RDW 12.8 % (11.5-14.5)
[2020-05-13 05:59] LABS: CALC OSMOLALITY 272 mosm/kg (275-300); CALCIUM 7.9 mg/dL (8.5-10.1); CARBON DIOXIDE 34.2 mmol/L (21.0-32.0); CHLORIDE - SERUM 102 mmol/L (98-107); CREATININE - SERUM 0.8 mg/dL (0.6-1.3); GLUCOSE 92 mg/dL (74-106); MAGNESIUM - SERUM 2.1 mg/dL (1.8-2.4); POTASSIUM - SERUM 4.2 mmol/L (3.5-5.1); SODIUM 137 mmol/L (136-145); UREA NITROGEN 9 mg/dL (7-18); eGFR NON AFRICAN AMERICAN 79 mL/min (90-120)
[2020-05-13 06:01] LABS: PHOSPHOROUS 4.6 mg/dL (2.5-4.9)
--- NOTE | 2020-05-13 06:45 | NUR ---
RESTING IN BED WITH EYES CLOSED. RESPIRATIONS EVEN AND UNLABORED. NO S/S OF ACUTE DISTRESS NOTED. POD #5 LEFT HIP, DRESSING C/D/I. IV TO LEFT FOREARM, SL. SITE PATENT WITHOUT REDNESS OR SWELLING. ON TELEMETRY 95 SR. UP WITH PHYSICAL THERAPY. SCDS. RASH TO BUTTOCKS AND LOWER BACK. DENIES ANY NEEDS AT THIS TIME. CALL LIGHT IN REACH. WILL CONTINUE TO MONITOR.
--- NOTE | 2020-05-13 08:24 | MORECARE ---
CASE MANAGEMENT DISCHARGE SUMMARY PATIENT: ALLY CHIN UNIT: [id number] ADM DATE: 05/07/20 AGE: 54 : 67 SEX: F ROOM/BED: D.2214 AUTHOR: SHANON,DOC PHYSICIAN: REFERRING PHYSICIAN: NICOLE STERLING MD DATE OF SERVICE: 05/13/20 Discharge Plan Patient Name: ALLY CHIN Facility: [facility]:[place] : 1965 Planned Disposition: Inpatient Rehab Facility Anticipated Discharge Date: Discharge Date: Expected LOS: Initial Reviewer: [email or web address] Initial Review Date: 05/08/2020 Generated: 05/13/20 9:24 am DCP- Discharge Planning Updated by [id number]: Izzy Moore on 05/12/20 3:[address] 05/09: CM met with patient regarding DC plans. Patient states that she currently lives in an apartment, but is having her sisters close it out today. CM spoke with patient about HHS, Rehab, OP Therapy, SNF.because she wants to go into Rehab. CM encouraged patient to participate with physical therapy. Patient uses a cane. Denies the needs for HHS, because she states she can't take care of herself. Patient called her sister, Yvonne Jasmine ([phone]), who states neither of the two sisters can take her into their homes, due to their health problems. PCP: Dr. garcía. [facility]acy[facility]. CARDIAC CATHETERIZATION TECHNOLOGIST, patient was independent with all ADL's. CM contacted [facility], spoke with Gertrude and faxed required information. [place]ON will continue to work on Rehab at this time. 04/09: faxed additional information to [employer].. 04/10: Faxed additional information to Gertrude with [facility]. DCP- Discharge Planning Updated by [id number]: Izzy Moore on 05/12/20 3:[address] CM was contacted by Gertrude with [facility] and states the facility cannot accept patient due to her not participating with physical therapy. CM contacted patient's sister, Yvonne Jasmine and Radha Lanny, via speaker phone and informed them of same. CM spoke with both sister's regarding further DC plans. Informed both that the patient has been denied at [facility] and that this time, if they are unwilling to take the patient into their homes, then we need to discuss skilled nursing halfway. Per Yvonne (sister), request that CM attempt to find placement in any nursing facility in [place]. CM will begin to blanket fax to the facilities in [place]. DCPIA - Discharge Planning Initial Assessment Updated by [id number]: Izzy Moore on 05/12/20 7:37 pm * Is the patient Alert and Oriented? Yes * PCP Dr. García * [facility]acy [facility] * Preadmission Environment Home Alone * ADLs Independent * List name and contact numbers for known caregivers / representatives who currently or will assist patient after discharge: Yvonne Jasmine (sister) [phone] Radha Mark sister) [phone] * Verbal permission to speak to the caregivers and representatives has been obtained from the patient. Yes * Please name any agencies selected above. [address] * Additional services required to return to the preadmission environment? Yes * Can the patient safely return to the preadmission environment? No * Has this patient been hospitalized within the prior 30 days at any hospital? No External Providers External Provider: [facility] Next Contact Date: Service Request Date: Service Type: Resolution: Reviewer: Comments: Coverage Notice Reviewer: [id number] - Izzy Moore Notice Issued Date-Time: 05/09/2020 8:45 Notice Type: Patient Choice Letter Notice Delivered To: Patient Relationship to Patient: Self Rotary Operator Name: Ally Chin Delivery Method: HAND - Hand Delivered Stephany Days: Prior Verbal Notification: Recipient Understood Notice: Yes Recipient Signature: Yes Med Rec Note Co-signed by Attending: Coverage Notice Comment: Patient choice for [facility] Last DP export: 05/12/20 6:40 p Patient Name: ALLY CHIN Page 70511 at 0824 All edits/amendments must be made on the electronic document DICTATION DATE: 05/13/[address] REPORTER: DELFINO 05/13/20823 RPT#: [id number] DC DATE: STATUS: ADM IN [facility] [address] [place] [address] END OF REPORT
--- NOTE | 2020-05-13 08:38 | MORECARE ---
CASE MANAGEMENT DISCHARGE SUMMARY PATIENT: ALLY CIHN UNIT: [id number] ADM DATE: 05/07/20 AGE: 54 : 67 SEX: F ROOM/BED: D.2214 AUTHOR: SHANON,DOC PHYSICIAN: REFERRING PHYSICIAN: NICOLE STERLING MD DATE OF SERVICE: 05/13/20 Discharge Plan Patient Name: ALLY CHIN Facility: [facility]:[place] : 1965 Planned Disposition: Inpatient Rehab Facility Anticipated Discharge Date: Discharge Date: Expected LOS: Initial Reviewer: [id number] Initial Review Date: 05/08/2020 Generated: 05/13/20 9:37 am DCP- Discharge Planning Updated by [id number]: Izzy Moore on 05/12/20 3:[address] 05/09: CM met with patient regarding DC plans. Patient states that she currently lives in an apartment, but is having her sisters close it out today. CM spoke with patient about HHS, Rehab, OP Therapy, SNF.because she wants to go into Rehab. CM encouraged patient to participate with physical therapy. Patient uses a cane. Denies the needs for HHS, because she states she can't take care of herself. Patient called her sister, Yvonne Jasmine ([phone]), who states neither of the two sisters can take her into their homes, due to their health problems. PCP: Dr. garcía. [facility]. HEAD OF TRAINING AND DEVELOPMENT, patient was independent with all ADL's. CM contacted [facility], spoke with Gertrude and faxed required information. [place]ON will continue to work on Rehab at this time. 04/09: faxed additional information to [employer].. 04/10: Faxed additional information to Gertrude with [facility]. DCP- Discharge Planning Updated by [id number]: Izzy Moore on 05/12/20 3:[address] CM was contacted by Gertrude with [facility] and states the facility cannot accept patient due to her not participating with physical therapy. CM contacted patient's sister, Yvonne Jasmine and Radha Lanny, via speaker phone and informed them of same. CM spoke with both sister's regarding further DC plans. Informed both that the patient has been denied at [facility] and that this time, if they are unwilling to take the patient into their homes, then we need to discuss [place]. Per Yvonne (sister), request that CM attempt to find placement in any nursing facility in [place]. CM will begin to blanket fax to the facilities in [place]. DCPIA - Discharge Planning Initial Assessment Updated by [id number]: Izzy Moore on 05/12/20 7:37 pm * Is the patient Alert and Oriented? Yes * PCP Dr. García * [facility] * Preadmission Environment Home Alone * ADLs Independent * List name and contact numbers for known caregivers / representatives who currently or will assist patient after discharge: Yvonne Jasmine (sister) [phone] Radha Mark sister) [phone] * Verbal permission to speak to the caregivers and representatives has been obtained from the patient. Yes * Please name any agencies selected above. [address] * Additional services required to return to the preadmission environment? Yes * Can the patient safely return to the preadmission environment? No * Has this patient been hospitalized within the prior 30 days at any hospital? No External Providers External Provider: [facility] Next Contact Date: Service Request Date: Service Type: Resolution: Reviewer: Comments: Coverage Notice Reviewer: [id number] - Izzyjr Moore Notice Issued Date-Time: 05/09/2020 8:45 Notice Type: Patient Choice Letter Notice Delivered To: Patient Relationship to Patient: Self Geospatial Scientist Name: Ally Chin Delivery Method: HAND - Hand Delivered Stephany Days: Prior Verbal Notification: Recipient Understood Notice: Yes Recipient Signature: Yes Med Rec Note Co-signed by Attending: Coverage Notice Comment: Patient choice for [facility] Last DP export: 05/13/20 7:24 a Patient Name: ALLY CHIN Page 50204 at 0838 All edits/amendments must be made on the electronic document DICTATION DATE: 05/13/20836 CHLORINE OPERATOR: DELFINO 05/13/2037 RPT#: [id number] DC DATE: STATUS: ADM IN [facility] [address] [place] [address] END OF REPORT
--- NOTE | 2020-05-13 08:57 | MORECARE ---
CASE MANAGEMENT DISCHARGE SUMMARY PATIENT: ALLY CHIN UNIT: [id number] ADM DATE: 05/07/20 AGE: 54 : 67 SEX: F ROOM/BED: D.2214 AUTHOR: SHANON,DOC PHYSICIAN: REFERRING PHYSICIAN: NICOLE STERLING MD DATE OF SERVICE: 05/13/20 Discharge Plan Patient Name: ALLY CHIN Facility: [facility]:[place] : 1965 Planned Disposition: Inpatient Rehab Facility Anticipated Discharge Date: Discharge Date: Expected LOS: Initial Reviewer: [email or web address] Initial Review Date: 05/08/2020 Generated: 05/13/20 9:57 am DCP- Discharge Planning Updated by [id number]: Izzy Moore on 05/12/20 3:[address] 05/09: CM met with patient regarding DC plans. Patient states that she currently lives in an apartment, but is having her sisters close it out today. CM spoke with patient about HHS, Rehab, OP Therapy, SNF.because she wants to go into Rehab. CM encouraged patient to participate with physical therapy. Patient uses a cane. Denies the needs for HHS, because she states she can't take care of herself. Patient called her sister, Yvonne Jasmine ([phone]), who states neither of the two sisters can take her into their homes, due to their health problems. PCP: Dr. garcía. [facility]. DRIVER EXAMINER, patient was independent with all ADL's. CM contacted [facility], spoke with Gertrude and faxed required information. TRENTON will continue to work on Rehab at this time. 04/09: faxed additional information to [employer].. 04/10: Faxed additional information to Gertrude with [facility]. DCP- Discharge Planning Updated by [id number]: Izzy Moore on 05/12/20 3:[address] CM was contacted by Gertrude with [facility] and states the facility cannot accept patient due to her not participating with physical therapy. CM contacted patient's sister, Yvonne Jasmine and Radha Lanny, via speaker phone and informed them of same. CM spoke with both sister's regarding further DC plans. Informed both that the patient has been denied at [facility] and that this time, if they are unwilling to take the patient into their homes, then we need to discuss prison group home. Per Yvonne (sister), request that CM attempt to find placement in any nursing facility in [place]. CM will begin to blanket fax to the facilities in [place]. DCPIA - Discharge Planning Initial Assessment Updated by [email or web address]: Izzy Moore on 05/12/20 7:37 pm * Is the patient Alert and Oriented? Yes * PCP Dr. García * [facility]acy [facility] * Preadmission Environment Home Alone * ADLs Independent * List name and contact numbers for known caregivers / representatives who currently or will assist patient after discharge: Yvonne Jasmine (sister) [phone] Radha Mark sister) [phone] * Verbal permission to speak to the caregivers and representatives has been obtained from the patient. Yes * Please name any agencies selected above. [address] * Additional services required to return to the preadmission environment? Yes * Can the patient safely return to the preadmission environment? No * Has this patient been hospitalized within the prior 30 days at any hospital? No External Providers External Provider: [facility] Next Contact Date: Service Request Date: Service Type: Resolution: Reviewer: Comments: Coverage Notice Reviewer: [id number] - Izzy Moore Notice Issued Date-Time: 05/09/2020 8:45 Notice Type: Patient Choice Letter Notice Delivered To: Patient Relationship to Patient: Self Surgical Tech Name: Ally Chin Delivery Method: HAND - Hand Delivered Stephany Days: Prior Verbal Notification: Recipient Understood Notice: Yes Recipient Signature: Yes Med Rec Note Co-signed by Attending: Coverage Notice Comment: Patient choice for [facility] Last DP export: 05/13/20 7:38 a Patient Name: ALLY CHIN Page [id number] at 0857 All edits/amendments must be made on the electronic document DICTATION DATE: 05/13/20856 SURVEYOR GEOPHYSICAL PROSPECTING: DELFINO 05/13/2057 RPT#: [id number] DC DATE: STATUS: ADM IN [facility] [address] [place] [address] END OF REPORT
--- NOTE | 2020-05-13 09:13 | MORECARE ---
CASE MANAGEMENT DISCHARGE SUMMARY PATIENT: ALLY CHIN UNIT: [id number] ADM DATE: 05/07/20 AGE: 54 : 67 SEX: F ROOM/BED: D.2214 AUTHOR: SHANON,DOC PHYSICIAN: REFERRING PHYSICIAN: NICOLE STERLING MD DATE OF SERVICE: 05/13/20 Discharge Plan Patient Name: ALLY CHIN Facility: [facility]:[place] : 1965 Planned Disposition: Inpatient Rehab Facility Anticipated Discharge Date: Discharge Date: Expected LOS: Initial Reviewer: [email or web address] Initial Review Date: 05/08/2020 Generated: 05/13/20 10:13 am DCP- Discharge Planning Updated by [id number]: Izzy Moore on 05/12/20 3:[address] 05/09: CM met with patient regarding DC plans. Patient states that she currently lives in an apartment, but is having her sisters close it out today. CM spoke with patient about HHS, Rehab, OP Therapy, SNF.because she wants to go into Rehab. CM encouraged patient to participate with physical therapy. Patient uses a cane. Denies the needs for HHS, because she states she can't take care of herself. Patient called her sister, Yvonne Jasmine ([phone]), who states neither of the two sisters can take her into their homes, due to their health problems. PCP: Dr. garcía. [facility]acy[facility]. KARATE BLACK BELT, patient was independent with all ADL's. CM contacted [facility], spoke with Gertrude and faxed required information. TRENTON will continue to work on Rehab at this time. 04/09: faxed additional information to [employer].. 04/10: Faxed additional information to Gertrude with [facility]. DCP- Discharge Planning Updated by [email or web address]: Izzy Moore on 05/12/20 3:[address] CM was contacted by Gertrude with [facility] and states the facility cannot accept patient due to her not participating with physical therapy. CM contacted patient's sister, Yvonne Jasmine and Radha Lanny, via speaker phone and informed them of same. CM spoke with both sister's regarding further DC plans. Informed both that the patient has been denied at [facility] and that this time, if they are unwilling to take the patient into their homes, then we need to discuss ad terminal makeup operator penitentiary. Per Yvonne (sister), request that CM attempt to find placement in any nursing facility in [place]. CM will begin to blanket fax to the facilities in [place]. DCPIA - Discharge Planning Initial Assessment Updated by [email or web address]: Izzy Moore on 05/12/20 7:37 pm * Is the patient Alert and Oriented? Yes * PCP Dr. García * [facility] * Preadmission Environment Home Alone * ADLs Independent * List name and contact numbers for known caregivers / representatives who currently or will assist patient after discharge: Yvonne Jasmine (sister) [phone] Radha Mark sister) [phone] * Verbal permission to speak to the caregivers and representatives has been obtained from the patient. Yes * Please name any agencies selected above. [address] * Additional services required to return to the preadmission environment? Yes * Can the patient safely return to the preadmission environment? No * Has this patient been hospitalized within the prior 30 days at any hospital? No External Providers External Provider: [facility] Next Contact Date: Service Request Date: Service Type: Resolution: Reviewer: Comments: External Provider: [facility] Next Contact Date: Service Request Date: Service Type: Resolution: Reviewer: Comments: Coverage Notice Reviewer: [id number] - Izzy Moore Notice Issued Date-Time: 05/09/2020 8:45 Notice Type: Patient Choice Letter Notice Delivered To: Patient Relationship to Patient: Self Automation Mechanic Name: Ally Chin Delivery Method: HAND - Hand Delivered Stephany Days: Prior Verbal Notification: Recipient Understood Notice: Yes Recipient Signature: Yes Med Rec Note Co-signed by Attending: Coverage Notice Comment: Patient choice for [facility] Last DP export: 05/13/20 7:57 a Patient Name: ALLY CHIN Page [phone] at 0913 All edits/amendments must be made on the electronic document DICTATION DATE: 05/13/20912 APPEALS EXAMINER: DELFINO 05/13/20912 RPT#: [id number] DC DATE: STATUS: ADM IN [facility] [address] [place] [address] END OF REPORT
[2020-05-13 10:29] VITALS: BP 94/64
--- NOTE | 2020-05-13 10:49 | NUR ---
I have reviewed this patient and I concur with the Shift Assessment completed by the Licensed Practical Nurse today this shift.
--- NOTE | 2020-05-13 10:55 | NUR ---
Nutrition follow-up: Visited with pt re: po intake Pt reports fair appetite. Pt states she has not been feeling well but is trying to eat. Pt reports filling out her menu and getting what she is ordering. Diet: Regular PO intake ~60% average of meals Labs reviewed Wt: 121# RDN following.
[2020-05-13 13:47] VITALS: BP 107/60
--- NOTE | 2020-05-13 15:01 | MORECARE ---
CASE MANAGEMENT DISCHARGE SUMMARY PATIENT: JUSTIN MILLAN UNIT: [id number] ADM DATE: 05/07/20 AGE: 54 : 67 SEX: F ROOM/BED: D.2214 AUTHOR: CHRISTOPHER CLAUDIO PHYSICIAN: REFERRING PHYSICIAN: NICOLE STERLING MD DATE OF SERVICE: 05/13/20 Discharge Plan Patient Name: JUSTIN MILLAN Facility: [facility]:[place] : 1965 Planned Disposition: Anticipated Discharge Date: Discharge Date: Expected LOS: Initial Reviewer: [email or web address] Initial Review Date: 05/08/2020 Generated: 05/13/20 4:00 pm Comments DCP- Discharge Planning Updated by [email or web address]: Izzy Moore on 05/13/20 1:[address] CM faxed the following Nursing Facilities for a senior living Medicaid bed: [facility] attn: [facility] ([facility]) attn: Miriam Lama, [facility], [facility], [facility] ([place]). The patient is in agreement to going to any facility that will accept her. I spoke to her sisters and made them aware that if a nursing facility cannot be found, the family would be responsible to take her in. Miriam called back and states the facility cannot accept the patient. The patient does not want to go back to [facility] is not accepting patients at this time. DCP- Discharge Planning Updated by [id number]: Izzy Moore on 05/12/20 3:[address] 05/09: CM met with patient regarding DC plans. Patient states that she currently lives in an apartment, but is having her sisters close it out today. CM spoke with patient about HHS, Rehab, OP Therapy, SNF.because she wants to go into Rehab. CM encouraged patient to participate with physical therapy. Patient uses a cane. Denies the needs for HHS, because she states she can't take care of herself. Patient called her sister, Yvonne Jasmine ([phone]), who states neither of the two sisters can take her into their homes, due to their health problems. PCP: Dr. garcía. [facility]. 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 CM contacted [facility], spoke with Gertrude and faxed required information. CM will continue to work on Rehab at this time. 04/09: faxed additional information to [facility].. 04/10: Faxed additional information to Gertrude with [facility]. DCP- Discharge Planning Updated by [id number]: Izzy Moore on 05/12/20 3:[address] CM was contacted by Gertrude with [facility] and states the facility cannot accept patient due to her not participating with physical therapy. CM contacted patient's sister, Yvonne Jasmine and Radha Ca, via speaker phone and informed them of same. CM spoke with both sister's regarding further DC plans. Informed both that the patient has been denied at [facility] and that this time, if they are unwilling to take the patient into their homes, then we need to discuss nursing home jail. Per Yvonne (sister), request that CM attempt to find placement in any nursing facility in [place]. CM will begin to blanket fax to the facilities in [place]. DCPIA - Discharge Planning Initial Assessment Updated by [id number]: Izzy Moore on 05/12/20 7:37 pm * Is the patient Alert and Oriented? Yes * PCP Dr. García * [facility] * Preadmission Environment Home Alone * ADLs Independent * List name and contact numbers for known caregivers / representatives who currently or will assist patient after discharge: Yvonne Jasmine (sister) [phone] Radha Caw sister) [phone] * Verbal permission to speak to the caregivers and representatives has been obtained from the patient. Yes * Please name any agencies selected above. [address] * Additional services required to return to the preadmission environment? Yes * Can the patient safely return to the preadmission environment? No * Has this patient been hospitalized within the prior 30 days at any hospital? No Coverage Notice Reviewer: [id number] - Izzy Moore Notice Issued Date-Time: 05/09/2020 8:45 Notice Type: Patient Choice Letter Notice Delivered To: Patient Relationship to Patient: Self Newborn Hearing Screener Name: Justin L Paculan Delivery Method: HAND - Hand Delivered Stephany Days: Prior Verbal Notification: Recipient Understood Notice: Yes Recipient Signature: Yes Med Rec Note Co-signed by Attending: Coverage Notice Comment: Patient choice for [facility] Last DP export: 05/13/20 8:13 a Patient Name: JUSTIN MILLAN Page [phone] at 1501 All edits/amendments must be made on the electronic document DICTATION DATE: 05/13/201499 PLASTIC DOLLS MOLD FILLER: DELFINO 05/13/20 1500 RPT#: [id number] DC DATE: STATUS: ADM IN [facility] [address] [place] [address] END OF REPORT
[2020-05-13 18:03] VITALS: BP 115/54; BP 129/75
--- NOTE | 2020-05-13 18:09 | NUR ---
ALERT AND ORIENTED, RESTING IN BED WITH EYES OPEN. NO C/O PAIN. NO S/S OF ACUTE DISTRESS NOTED. DENIES ANY NEEDS AT THIS TIME. CALL LIGHT IN REACH. WILL CONTINUE TO MONITOR.
[2020-05-13 20:00] VITALS: BP 94/58
[2020-05-14 00:01] VITALS: BP 98/59
[2020-05-14 05:16] VITALS: BP 84/53
[2020-05-14 06:25] LABS: BASOPHILS 0.4 % (0-2); HEMATOCRIT 26.7 % (36.0-48.0); HEMOGLOBIN 8.6 g/dL (12-16); IMMATURE GRANULOCYTES 0.2 % (0-5); LYMPHOCYTES 24.5 % (15-50); MCH 31.5 pg (26.0-34.0); MCHC 32.2 g/dL (31.0-37.0); MCV 97.8 fL (80.0-100.0); MEAN PLATELET VOLUME 8.4 fL (7.4-10.4); MONOCYTES 8.4 % (2-11); NEUTROPHILS 62.5 % (40-80); PLATELET COUNT 333 10x3/uL (130-400); RBC 2.73 10x6/uL (4.00-5.40); RDW 12.9 % (11.5-14.5)
[2020-05-14 06:31] LABS: CALC OSMOLALITY 276 mosm/kg (275-300); CALCIUM 8.3 mg/dL (8.5-10.1); CARBON DIOXIDE 35.6 mmol/L (21.0-32.0); CHLORIDE - SERUM 102 mmol/L (98-107); CREATININE - SERUM 0.7 mg/dL (0.6-1.3); GLUCOSE 90 mg/dL (74-106); MAGNESIUM - SERUM 2.2 mg/dL (1.8-2.4); PHOSPHOROUS 5.1 mg/dL (2.5-4.9); POTASSIUM - SERUM 4.3 mmol/L (3.5-5.1); SODIUM 139 mmol/L (136-145); UREA NITROGEN 10 mg/dL (7-18); eGFR NON AFRICAN AMERICAN > 90 mL/min (90-120)
--- NOTE | 2020-05-14 09:27 | MORECARE ---
CASE MANAGEMENT DISCHARGE SUMMARY PATIENT: JUSTIN MILLAN UNIT: [id number] ADM DATE: 05/07/20 AGE: 54 : 67 SEX: F ROOM/BED: D.2214 AUTHOR: CHRISTOPHER CLAUDIO PHYSICIAN: REFERRING PHYSICIAN: NICOLE STERLING MD DATE OF SERVICE: 05/14/20 Discharge Plan Patient Name: JUSTIN MILLAN Facility: [facility]:[place] : 1965 Planned Disposition: Anticipated Discharge Date: Discharge Date: Expected LOS: Initial Reviewer: [email or web address] Initial Review Date: 05/08/2020 Generated: 05/14/20 10:26 am Comments DCP- Discharge Planning Updated by [id number]: Izzy Moore on 05/13/20 1:[address] CM faxed the following Nursing Facilities for a terminal worker Medicaid bed: [facility] attn: [facility] ([facility]) attn: Miriam Lama, [facility], [facility], [facility] ([place]). The patient is in agreement to going to any facility that will accept her. I spoke to her sisters and made them aware that if a nursing facility cannot be found, the family would be responsible to take her in. Miriam called back and states the facility cannot accept the patient. The patient does not want to go back to [facility] is not accepting patients at this time. DCP- Discharge Planning Updated by [id number]: Izzy Moore on 05/12/20 3:[address] 05/09: CM met with patient regarding DC plans. Patient states that she currently lives in an apartment, but is having her sisters close it out today. CM spoke with patient about HHS, Rehab, OP Therapy, SNF.because she wants to go into Rehab. CM encouraged patient to participate with physical therapy. Patient uses a cane. Denies the needs for HHS, because she states she can't take care of herself. Patient called her sister, Yvonne Jasmine ([phone]), who states neither of the two sisters can take her into their homes, due to their health problems. PCP: Dr. garcía. [facility]acy[facility]. 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 CM contacted [facility], spoke with Gertrude and faxed required information. CM will continue to work on Rehab at this time. 04/09: faxed additional information to [facility].. 04/10: Faxed additional information to Gertrude with [facility]. DCP- Discharge Planning Updated by [id number]: Izzy Moore on 05/12/20 3:[address] CM was contacted by Gertrude with [facility] and states the facility cannot accept patient due to her not participating with physical therapy. CM contacted patient's sister, Yvonne Jasmine and Radha Ca, via speaker phone and informed them of same. CM spoke with both sister's regarding further DC plans. Informed both that the patient has been denied at [facility] and that this time, if they are unwilling to take the patient into their homes, then we need to discuss prison alf. Per Yvonne (sister), request that CM attempt to find placement in any nursing facility in [place]. CM will begin to blanket fax to the facilities in [place]. DCPIA - Discharge Planning Initial Assessment Updated by [id number]: Izzy Moore on 05/12/20 7:37 pm * Is the patient Alert and Oriented? Yes * PCP Dr. García * [facility] * Preadmission Environment Home Alone * ADLs Independent * List name and contact numbers for known caregivers / representatives who currently or will assist patient after discharge: Yvonne Jasmine (sister) [phone] Radha Caw sister) [phone] * Verbal permission to speak to the caregivers and representatives has been obtained from the patient. Yes * Please name any agencies selected above. [address] * Additional services required to return to the preadmission environment? Yes * Can the patient safely return to the preadmission environment? No * Has this patient been hospitalized within the prior 30 days at any hospital? No Coverage Notice Reviewer: [id number] - Izzy Moore Notice Issued Date-Time: 05/09/2020 8:45 Notice Type: Patient Choice Letter Notice Delivered To: Patient Relationship to Patient: Self Clipper Automatic Name: Justin L Paculan Delivery Method: HAND - Hand Delivered Stephany Days: Prior Verbal Notification: Recipient Understood Notice: Yes Recipient Signature: Yes Med Rec Note Co-signed by Attending: Coverage Notice Comment: Patient choice for [facility] Last DP export: 05/13/20 2:00 p Patient Name: JUSTIN MILLAN Page [phone] at 0927 All edits/amendments must be made on the electronic document DICTATION DATE: 05/14/20925 WORKFORCE MANAGEMENT COORDINATOR: DELFINO 05/14/20925 RPT#: [id number] DC DATE: STATUS: ADM IN [facility] [address] [place] [address] END OF REPORT
--- NOTE | 2020-05-14 10:18 | NUR ---
PAITENT ALERT AND ORIENTED LAYING IN BED WATCHING TV. NO DISTRESS NOTED. STATES PAIN IS A 9. MORPHINE SULFATE GIVEN. AM MEDS TOLERATED WELL. RED AREA ON LEFT BUTTOCKS CHEEK. NYSTATIN CREAM APPLIED. DENIES FURTHER NEEDS. WILL CONTINUE TO MONITOR FOR SAFETY.
[2020-05-14 10:39] VITALS: BP 87/56
[2020-05-14] MEDS ORDERED: SENNA LAXATIVE8.6 MG PO (11:26)
[2020-05-14] MEDS ORDERED: NICODERM CQ1 EAC3 TRANSDERM (11:26)
[2020-05-14] MEDS ORDERED: COLACE100 MG PO (11:26)
--- NOTE | 2020-05-14 13:21 | NUR ---
PATIENT ALERT AND ORIENTED LAYING IN BED WITH EYES OPEN WATCHING TV. DRESSINGS ON LEFT HIP, BOTH CLEAN DRY AND INTACT. SINUS RHYTHM 99. NO DISTRESS NOTED. DENIES FURTHER NEEDS. WILL CONTINUE TO MONITOR FOR SAFETY.
[2020-05-14 15:19] VITALS: BP 102/64
--- NOTE | 2020-05-14 18:10 | NUR ---
PATIENT RESTING QUIETLY IN BED, EYES CLOSED. RESPIRATIONS EVEN, NONLABORED. NO SIGNS OF DISTRESS. DENIES FURTHER NEEDS. WILL CONTINUE TO MONITOR FOR SAFETY.
[2020-05-14 18:37] VITALS: BP 100/69
--- NOTE | 2020-05-14 19:20 | NUR ---
ALERT AND ORIENTED, SITTING UP IN BED. PATIENT REQUESTS PAIN MEDICINE, BUT DOES NOT HAVE ANY DUE AT THIS TIME. NO SIGNS OF ACUTE DISTRESS NOTED. INCISIONS TO L HIP OPEN TO AIR. REDNESS ON L BUTTOCK UP PATIENTS BACK. L FA IV, SL, NO REDNESS OR SWELLING. PATIENT TOLD TO CALL WITH ANY NEEDS. BED RAILS X2. BEDSIDE TABLE AND CALL LIGHT WITHIN REACH.
[2020-05-14 20:21] VITALS: BP 100/66
[2020-05-15 00:25] VITALS: BP 96/63
[2020-05-15 04:10] VITALS: BP 96/59
[2020-05-15 05:59] LABS: HEMOGLOBIN 8.4 g/dL (12-16); LYMPHOCYTES 27.6 % (15-50); MCH 31.5 pg (26.0-34.0); MCHC 32.3 g/dL (31.0-37.0); MCV 97.4 fL (80.0-100.0); MEAN PLATELET VOLUME 8.2 fL (7.4-10.4); NEUTROPHILS 60.4 % (40-80); RBC 2.67 10x6/uL (4.00-5.40); RDW 13.2 % (11.5-14.5); WBC 4.6 10x3/uL (4.8-10.8)
[2020-05-15 06:01] LABS: PLATELET COUNT 418 10x3/uL (130-400)
[2020-05-15 06:02] LABS: CALC OSMOLALITY 270 mosm/kg (275-300); CALCIUM 8.5 mg/dL (8.5-10.1); CARBON DIOXIDE 34.3 mmol/L (21.0-32.0); CHLORIDE - SERUM 100 mmol/L (98-107); CREATININE - SERUM 0.7 mg/dL (0.6-1.3); GLUCOSE 89 mg/dL (74-106); MAGNESIUM - SERUM 2.2 mg/dL (1.8-2.4); POTASSIUM - SERUM 4.1 mmol/L (3.5-5.1); SODIUM 136 mmol/L (136-145); eGFR NON AFRICAN AMERICAN > 90 mL/min (90-120)
[2020-05-15 06:04] LABS: UREA NITROGEN 13 mg/dL (7-18)
[2020-05-15 08:44] VITALS: BP 108/70
--- NOTE | 2020-05-15 09:50 | NUR ---
PATIENT AWAKE, ALERT AND ORIENTED, RESTING EYES OPEN. LEFT FOREARM SALINE LOCK. ON ROOM AIR. DRESSING REMOVED YESTERDAY ON LEFT HIP, INCISIONS SITES CLEAN DRY, INTACT. BOWEL MOVEMENT BROWN, SOLID. PATIENT STATES IT IS "HARD". RED AREA ON LEFT BUTTOCKS AND ON BACK. NYSTATIN CREAM APPLIED. ON TELEMERTY 99 SINUS. ABDOMEN NON TENDER. DENIES FURTHER NEEDS. WILL CONTINUE TO MONITOR FOR SAFETY.
[2020-05-15 12:10] VITALS: BP 97/68
--- NOTE | 2020-05-15 15:51 | NUR ---
I have reviewed this patient and I concur with the Shift Assessment completed by the Licensed Practical Nurse today this shift.
--- NOTE | 2020-05-15 16:03 | NUR ---
PATIENT AWAKE, ALERT AND ORIENTED, RESTING QUIETLY WATCHING TV. RESPIRATIONS EVEN NON LABORED. PLACED MEPILEX PAD ON BOTTOM DUE TO REDDEND AREA. DENIES FUTHER NEEDS. CALL LIGHT IN REACH, SIDE RAILS UP. WILL CONTINUE TO MONITOR FOR SAFETY.
[2020-05-15 16:07] VITALS: BP 110/63
--- NOTE | 2020-05-15 18:20 | NUR ---
PATIENT ALERT AND ORIENTED EATING DINNER. NO SIGNS OF DISTRESS NOTED. RESPIRATIONS EVEN NON LABORED. DENIES FUTHER NEEDS. SIDE RAILS UP. CALL LIGHT IN REACH. WILL CONTINUE TO MONITOR FOR SAFETY.
[2020-05-15 20:25] VITALS: BP 96/61
[2020-05-16 05:06] LABS: HEMATOCRIT 27.1 % (36.0-48.0); HEMOGLOBIN 8.8 g/dL (12-16); LYMPHOCYTES 26.9 % (15-50); MCH 31.7 pg (26.0-34.0); MCHC 32.5 g/dL (31.0-37.0); MCV 97.5 fL (80.0-100.0); MEAN PLATELET VOLUME 7.9 fL (7.4-10.4); NEUTROPHILS 63.8 % (40-80); PLATELET COUNT 453 10x3/uL (130-400); RBC 2.78 10x6/uL (4.00-5.40); RDW 13.1 % (11.5-14.5); WBC 4.4 10x3/uL (4.8-10.8)
[2020-05-16 05:10] VITALS: BP 85/51
[2020-05-16 05:25] LABS: CALC OSMOLALITY 272 mosm/kg (275-300); CALCIUM 8.5 mg/dL (8.5-10.1); CARBON DIOXIDE 35.2 mmol/L (21.0-32.0); CHLORIDE - SERUM 100 mmol/L (98-107); CREATININE - SERUM 0.6 mg/dL (0.6-1.3); GLUCOSE 91 mg/dL (74-106); MAGNESIUM - SERUM 2.2 mg/dL (1.8-2.4); PHOSPHOROUS 4.6 mg/dL (2.5-4.9); POTASSIUM - SERUM 3.8 mmol/L (3.5-5.1); SODIUM 137 mmol/L (136-145); UREA NITROGEN 11 mg/dL (7-18); eGFR NON AFRICAN AMERICAN > 90 mL/min (90-120)
--- NOTE | 2020-05-16 06:05 | NUR ---
PATIEINT HAS ASKED MULTIPLE TIMES FOR MORE PAIN MEDICINE OR VALIUM. REFUSED TO GIVE HER THE VALIUM BECAUSE HER BP IS LOW.PATIENT HAS ALREADY HAD ALL THE SCHEDULED PAIN MEDS ALLOWED. PATIENT CRYING STATES,"NOW I HAVE TO LAY HER IN PAIN FOR 3 MORE HOURS.MAYBE IF I THROW A FIT IT WILL GET MY BLOOD PRESSURE UP SO I CAN HAVE MY MEDICINE."
[2020-05-16] MEDS ORDERED: MS CONTIN15 MG PO (07:46)
--- NOTE | 2020-05-16 08:15 | NUR ---
ASSESSMENT PER FLOW SHEET. PATIENT IS WITHOUT DISTRESS. SHE IS VERY SLEEPY THIS AM AND AWAKENS INT.MEDS ORDERED PER MAR. SHE REQUEST PAIN MEDS WHEN SHE CAN HAVE THEM AT NEXT AVAILABLE TIME. MONITOR FOR NEEDS.
[2020-05-16 08:36] VITALS: BP 94/61
[2020-05-16 12:24] VITALS: BP 101/68
--- NOTE | 2020-05-16 15:34 | NUR ---
HAD GAMMA NAIL 05/08/20 LEFT HIP. THERE IS A RED RASHY AREA NOTED ON BUTTOCKS AND LOWER BACK. NYSTATIN POWDER IS BEING APPLIED.
[2020-05-16 16:15] VITALS: BP 113/69
--- NOTE | 2020-05-16 17:39 | NUR ---
HAS SLEPT ALOT TODAY. SHE IS WITHOUT SIGNS OF DISTRESS.CONT PLAN OF CARE
[2020-05-16 20:27] VITALS: BP 91/57
--- NOTE | 2020-05-16 21:15 | NUR ---
ALERT AND ORIENTED X4. RESP EVEN AND NONLABORED. REPORTS PAIN IN LT HIP 9. TELEMETRY SHOWS SR WITH RATE OF 100. INCISION NOTED TO LT HIP OPEN TO AIR. SKIN IS SLIGHTLY RED ON BACK AND BUTTOCKS. REFUSED SCDS. SALINE LOCK NOTED TO LT FOREARM. MEDICATED WITH MS CONTIN ROUTINE PM MED. PT ASKING FOR ATIVAN. EXPLAINED THAT DUE TO LOW B/P THAT THIS CARPENTER REPAIR COULDNT GIVE HER ANY OTHER NARCOTICS AT THIS TIME. SR ELEVATED X2. CL IN REACH.
--- NOTE | 2020-05-17 00:05 | NUR ---
MEDICATED WITH DILAUDID FOR C/O LT HIP PAIN. CL IN REACH. WAS YELLING OUT AND BEATING CALL LIGHT ON SIDE RAIL FOR ATTENTION.
[2020-05-17 00:33] VITALS: BP 108/65
[2020-05-17 04:00] VITALS: BP 121/69
[2020-05-17 05:57] LABS: BASOPHILS 0.3 % (0-2); EOSINOPHILS 3.4 % (0-7); HEMATOCRIT 26.4 % (36.0-48.0); HEMOGLOBIN 8.4 g/dL (12-16); IMMATURE GRANULOCYTES 0.6 % (0-5); LYMPHOCYTES 30.7 % (15-50); MCHC 31.8 g/dL (31.0-37.0); MCV 97.4 fL (80.0-100.0); MEAN PLATELET VOLUME 8.3 fL (7.4-10.4); MONOCYTES 9.6 % (2-11); NEUTROPHILS 55.4 % (40-80); PLATELET COUNT 415 10x3/uL (130-400); RBC 2.71 10x6/uL (4.00-5.40); RDW 13.1 % (11.5-14.5); WBC 3.6 10x3/uL (4.8-10.8)
[2020-05-17 06:27] LABS: CALC OSMOLALITY 271 mosm/kg (275-300); CALCIUM 8.3 mg/dL (8.5-10.1); CARBON DIOXIDE 33.3 mmol/L (21.0-32.0); CHLORIDE - SERUM 100 mmol/L (98-107); CREATININE - SERUM 0.6 mg/dL (0.6-1.3); GLUCOSE 93 mg/dL (74-106); MAGNESIUM - SERUM 2.3 mg/dL (1.8-2.4); PHOSPHOROUS 4.8 mg/dL (2.5-4.9); POTASSIUM - SERUM 4.2 mmol/L (3.5-5.1); SODIUM 136 mmol/L (136-145); UREA NITROGEN 12 mg/dL (7-18); eGFR NON AFRICAN AMERICAN > 90 mL/min (90-120)
[2020-05-17 09:01] VITALS: BP 97/67
[2020-05-17 12:37] VITALS: BP 115/59
--- NOTE | 2020-05-17 12:45 | MORECARE ---
CASE MANAGEMENT DISCHARGE SUMMARY PATIENT: JUSTIN CHIN UNIT: [id number] ADM DATE: 05/07/20 AGE: 54 : 67 SEX: F ROOM/BED: D.2214 AUTHOR: CHRISTOPHER CLAUDIO PHYSICIAN: REFERRING PHYSICIAN: NICOLE STERLING MD DATE OF SERVICE: 05/17/20 Discharge Plan Patient Name: JUSTIN CHIN Facility: [facility]:[place] : 1965 Planned Disposition: Anticipated Discharge Date: Discharge Date: Expected LOS: Initial Reviewer: [email or web address] Initial Review Date: 05/08/2020 Generated: 05/17/20 1:44 pm Comments DCP- Discharge Planning Updated by [id number]: Sherley Barriga on 05/17/20 11:[address] LATE ENTRY 05/16/20- [facility] HAS DENIED HER WITH ALL OF HER FACILITIES DCP- Discharge Planning Updated by [id number]: Izzy Moore on 05/13/20 1:[address] CM faxed the following Nursing Facilities for a custodial Medicaid bed: [facility] attn: [facility] ([facility]) attn: Miriam Lama, [facility], [facility], [facility] ([place]). The patient is in agreement to going to any facility that will accept her. I spoke to her sisters and made them aware that if a nursing facility cannot be found, the family would be responsible to take her in. Miriam called back and states the facility cannot accept the patient. The [facility]. DCP- Discharge Planning Updated by [id number]: Izzy Moore on 05/12/20 3:[address] 05/09: CM met with patient regarding DC plans. Patient states that she currently lives in an apartment, but is having her sisters close it out today. CM spoke with patient about HHS, Rehab, OP Therapy, SNF.because she wants to go into Rehab. CM encouraged patient to participate with physical therapy. Patient uses a cane. Denies the needs for HHS, because she states she can't take care of herself. Patient called her sister, Yvonne Jasmine ([phone]), who states neither of the two sisters can take her into their homes, due to their health problems. PCP: Dr. garcía. [facility]. 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 CM contacted [facility], spoke with Gertrude and faxed required information. CM will continue to work on Rehab at this time. 04/09: faxed additional information to [facility].. 04/10: Faxed additional information to Gertrude with [facility]. DCP- Discharge Planning Updated by [email or web address]: Izzy Moore on 05/12/20 3:[address] CM was contacted by Gertrude with [facility] and states the facility cannot accept patient due to her not participating with physical therapy. CM contacted patient's sister, Yvonne Jasmine and Radha Ca, via speaker phone and informed them of same. CM spoke with both sister's regarding further DC plans. Informed both that [facility] and that this time, if they are unwilling to take the patient into their homes, then we need to discuss [facility]. Per Yvonne (sister), request that CM attempt to find placement in any nursing facility in [place]. CM will begin to blanket fax to the facilities in [place]. DCPIA - Discharge Planning Initial Assessment Updated by [email or web address]: Izzy Moore on 05/12/20 7:37 pm * Is the patient Alert and Oriented? Yes * PCP Dr. García * [facility]acy [facility] * Preadmission Environment Home Alone * ADLs Independent * List name and contact numbers for known caregivers / representatives who currently or will assist patient after discharge: Yvonne Jasmine (sister) [phone] Radha Caw sister) [phone] * Verbal permission to speak to the caregivers and representatives has been obtained from the patient. Yes * Please name any agencies selected above. [address] * Additional services required to return to the preadmission environment? Yes * Can the patient safely return to the preadmission environment? No * Has this patient been hospitalized within the prior 30 days at any hospital? No Coverage Notice Reviewer: [id number] Chris Moore Notice Issued Date-Time: 05/09/2020 8:45 Notice Type: Patient Choice Letter Notice Delivered To: Patient Relationship to Patient: Self Setup Technician Name: Justin Chin Delivery Method: HAND - Hand Delivered Stephany Days: Prior Verbal Notification: Recipient Understood Notice: Yes Recipient Signature: Yes Med Rec Note Co-signed by Attending: Coverage Notice Comment: Patient choice for [facility] Last DP export: 05/14/20 8:27 a Patient Name: JUSTIN CHIN Page [id number] at 1245 All edits/amendments must be made on the electronic document DICTATION DATE: 05/17/20 1244 STEAM FITTER HELPER: DELFINO 05/17/20 1244 RPT#: [id number] DC DATE: STATUS: ADM IN [facility] [address] [place] [address] END OF REPORT
--- NOTE | 2020-05-17 12:58 | MORECARE ---
CASE MANAGEMENT DISCHARGE SUMMARY PATIENT: ALLY CHIN UNIT: [id number] ADM DATE: 05/07/20 AGE: 54 : 67 SEX: F ROOM/BED: D.2214 AUTHOR: CHRISTOPHER CLAUDIO PHYSICIAN: REFERRING PHYSICIAN: NICOLE STERLING MD DATE OF SERVICE: 05/17/20 Discharge Plan Patient Name: ALLY CHIN Facility: [facility]:[place] : 1965 Planned Disposition: Anticipated Discharge Date: Discharge Date: Expected LOS: Initial Reviewer: [email or web address] Initial Review Date: 05/08/2020 Generated: 05/17/20 1:57 pm Comments DCP- Discharge Planning Updated by [id number]: Sherley Barriga on 05/17/20 11:[address] I CALLED [facility] AND SPOKE WITH KATY ([phone]) ABOUT REFERRAL, [facility] SHE WILL GET BACK WITH ME DCP- Discharge Planning Updated by [email or web address]: Sherley Barriga on 05/17/20 11:[address] LATE ENTRY 05/16/20- [facility] HAS DENIED HER WITH ALL OF HER FACILITIES DCP- Discharge Planning Updated by [id number]: Izzy Moore on 05/13/20 1:[address] CM faxed the following Nursing Facilities for a jail Medicaid bed: [facility] attn: [facility] ([facility]) attn: Miriam Lama, [facility] ([place]). The patient is in agreement to going to any facility that will accept her. I spoke to her sisters and made them aware that if a nursing facility cannot be found, the family would be responsible to take her in. Miriam called back and states the facility cannot accept the patient. The patient does not want to go back to [facility]/Rehab, [facility] is not accepting patients at this time. DCP- Discharge Planning Updated by [id number]: Izzy Moore on 05/12/20 3:[address] 05/09: CM met with patient regarding DC plans. Patient states that she currently lives in an apartment, but is having her sisters close it out today. CM spoke with patient about HHS, Rehab, OP Therapy, SNF.because she wants to go into Rehab. CM encouraged patient to participate with physical therapy. Patient uses a cane. Denies the needs for HHS, because she states she can't take care of herself. Patient called her sister, Yvonne Jasmine ([phone]), who states neither of the two sisters can take her into their homes, due to their health problems. PCP: Dr. garcía. [facility]acy[facility]. 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 CM contacted [facility], spoke with [facility] and faxed required information. CM will continue to work on Rehab at this time. 04/09: faxed additional information to [facility].. 04/10: Faxed additional information to Gertrude with [facility]. DCP- Discharge Planning Updated by [id number]: zIzy Moore on 05/12/20 3:[address] CM was contacted by Gertrude with [facility] and states the facility cannot accept patient due to her not participating with physical therapy. CM contacted patient's sister, Yvonne Jasmine and Radha Ca, via speaker phone and informed them of same. CM spoke with both sister's regarding further DC plans. Informed both that the patient has been denied at [facility] and that this time, if they are unwilling to take the patient into their homes, then we need to discuss [facility] custodial. Per Yvonne (sister), request that CM attempt to find placement in any nursing facility in [place]. CM will begin to blanket fax to the facilities in [place]. DCPIA - Discharge Planning Initial Assessment Updated by [id number]: Izzy Moore on 05/12/20 7:37 pm * Is the patient Alert and Oriented? Yes * PCP Dr. García * [facility]acy [facility] * Preadmission Environment Home Alone * ADLs Independent * List name and contact numbers for known caregivers / representatives who currently or will assist patient after discharge: Yvonne Jasmine (sister) [phone] Radha Caw sister) [phone] * Verbal permission to speak to the caregivers and representatives has been obtained from the patient. Yes * Please name any agencies selected above. [address] * Additional services required to return to the preadmission environment? Yes * Can the patient safely return to the preadmission environment? No * Has this patient been hospitalized within the prior 30 days at any hospital? No Coverage Notice Reviewer: [id number] Chris Moore Notice Issued Date-Time: 05/09/2020 8:45 Notice Type: Patient Choice Letter Notice Delivered To: Patient Relationship to Patient: Self Monotype Caster Name: Ally Chin Delivery Method: HAND - Hand Delivered Stephany Days: Prior Verbal Notification: Recipient Understood Notice: Yes Recipient Signature: Yes Med Rec Note Co-signed by Attending: Coverage Notice Comment: Patient choice for [facility] Last DP export: 05/17/20 11:45 a Patient Name: ALLY CHIN Page [phone] at 1258 All edits/amendments must be made on the electronic document DICTATION DATE: 05/17/20 1257 CONCERT OR LECTURE HALL MANAGER: DELFINO 05/17/20 1257 RPT#: [id number] DC DATE: STATUS: ADM IN [facility] [address] [place] [address] END OF REPORT
--- NOTE | 2020-05-17 15:24 | MORECARE ---
CASE MANAGEMENT DISCHARGE SUMMARY PATIENT: ALLY CHIN UNIT: [id number] ADM DATE: 05/07/20 AGE: 54 : 67 SEX: F ROOM/BED: D.2214 AUTHOR: CHRISTOPHER CLAUDIO PHYSICIAN: REFERRING PHYSICIAN: NICOLE STERLING MD DATE OF SERVICE: 05/17/20 Discharge Plan Patient Name: ALLY CHIN Facility: [facility]:[place] : 1965 Planned Disposition: Anticipated Discharge Date: Discharge Date: Expected LOS: Initial Reviewer: [id number] Initial Review Date: 05/08/2020 Generated: 05/17/20 4:23 pm Comments DCP- Discharge Planning Updated by [email or web address]: Sherley Barriga on 05/17/20 11:[address] I CALLED [facility] AND SPOKE WITH KATY ([phone]) ABOUT REFERRAL, THEY SA[facility] SHE WILL GET BACK WITH ME DCP- Discharge Planning Updated by [id number]: Sherley Barriga on 05/17/20 11:[address] LATE ENTRY 05/16/20- [facility] WITH [facility] HAS DENIED HER WITH ALL OF HER FACILITIES DCP- Discharge Planning Updated by [id number]: Izzy Moore on 05/13/20 1:[address] CM faxed the following Nursing Facilities for a group home Medicaid bed: [facility] attn: [facility] ([facility]) attn: Miriam Lama, [facility] ([place]). The patient is in agreement to going to any facility that will accept her. I spoke to her sisters and made them aware that if a nursing facility cannot be found, the family would be responsible to take her in. Miriam called back and states the facility cannot accept the patient. The patient does not want to go back to [facility]/Rehab, [facility] is not accepting patients at this time. DCP- Discharge Planning Updated by [id number]: Izzy Moore on 05/12/20 3:[address] 05/09: CM met with patient regarding DC plans. Patient states that she currently lives in an apartment, but is having her sisters close it out today. CM spoke with patient about HHS, Rehab, OP Therapy, SNF.because she wants to go into Rehab. CM encouraged patient to participate with physical therapy. Patient uses a cane. Denies the needs for HHS, because she states she can't take care of herself. Patient called her sister, Yvonne Jasmine ([phone]), who states neither of the two sisters can take her into their homes, due to their health problems. PCP: Dr. garcía. [facility]. 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 CM contacted [facility], spoke with [facility] and faxed required information. CM will continue to work on Rehab at this time. 04/09: faxed additional information to [facility].. 04/10: Faxed additional information to Gertrude with [facility]. DCP- Discharge Planning Updated by [id number]: Izzy Moore on 05/12/20 3:[address] CM was contacted by Gertrude with [facility] and states the facility cannot accept patient due to her not participating with physical therapy. CM contacted patient's sister, Yvonne Jasmine and Radha Ca, via speaker phone and informed them of same. CM spoke with both sister's regarding further DC plans. Informed both that the patient has been denied at [facility] and that this time, if they are unwilling to take the patient into their homes, then we need to discuss residential fpc. Per Yvonne (sister), request that CM attempt to find placement in any nursing facility in [place]. CM will begin to blanket fax to the facilities in [place]. DCPIA - Discharge Planning Initial Assessment Updated by [id number]: Izzy Moore on 05/12/20 7:37 pm * Is the patient Alert and Oriented? Yes * PCP Dr. García * [facility] * Preadmission Environment Home Alone * ADLs Independent * List name and contact numbers for known caregivers / representatives who currently or will assist patient after discharge: Yvonne Jasmine (sister) [phone] Radha Caw sister) [phone] * Verbal permission to speak to the caregivers and representatives has been obtained from the patient. Yes * Please name any agencies selected above. [address] * Additional services required to return to the preadmission environment? Yes * Can the patient safely return to the preadmission environment? No * Has this patient been hospitalized within the prior 30 days at any hospital? No External Providers External Provider: [facility] Next Contact Date: Service Request Date: Service Type: Resolution: Reviewer: Comments: Coverage Notice Reviewer: [id number] Chris Moore Notice Issued Date-Time: 05/09/2020 8:45 Notice Type: Patient Choice Letter Notice Delivered To: Patient Relationship to Patient: Self Workers Compensation Claims Adjuster Name: Ally Chin Delivery Method: HAND - Hand Delivered Stephany Days: Prior Verbal Notification: Recipient Understood Notice: Yes Recipient Signature: Yes Med Rec Note Co-signed by Attending: Coverage Notice Comment: Patient choice for [facility] Last DP export: 05/17/20 11:58 a Patient Name: ALLY CHIN Page [id number] at 1524 All edits/amendments must be made on the electronic document DICTATION DATE: 05/17/20 152 SAMPLE CARRIER: DELFINO 05/17/20 1523 RPT#: [id number] DC DATE: STATUS: ADM IN [facility] [address] [place] [address] END OF REPORT
[2020-05-17 16:47] VITALS: BP 96/50
--- NOTE | 2020-05-17 18:49 | NUR ---
REMAINS WITHOUT CHNAGE, CONT PLAN OF CARE
--- NOTE | 2020-05-17 19:30 | NUR ---
PT SITTING UP IN BED WITHOUT DISTRESS, AOX4. NO IV ACCESS. SCDS OFF AT THIS TIME. PT DOES NOT WANT TO PUT THEM ON. BED ALARM ON. DENIES NEEDS AT THIS TIME. CL IN REACH, WILL CTM
[2020-05-17 20:00] VITALS: BP 109/75
--- NOTE | 2020-05-17 20:30 | NUR ---
HS MEDS GIVEN. SCHEDULED MS CONTIN GIVEN FOR PAIN 09/03. PT ASKING FOR DILAUDID. TOLD PT SHE WOULD HAVE TO WAIT. VERBALIZED UNDERSTANDING. CL IN REACH, WILL CTM
--- NOTE | 2020-05-17 22:45 | NUR ---
PT GIVEN DILAUDID AND VALIUM FOR PAIN 09/03. DENIES OTHER NEEDS, WILL CTM
[2020-05-18] VITALS: BP 96/68
[2020-05-18 04:00] VITALS: BP 89/55
[2020-05-18 04:29] LABS: BASOPHILS 0.5 % (0-2); EOSINOPHILS 3.7 % (0-7); HEMATOCRIT 28.3 % (36.0-48.0); IMMATURE GRANULOCYTES 0.5 % (0-5); MCH 30.8 pg (26.0-34.0); MCHC 31.8 g/dL (31.0-37.0); MCV 96.9 fL (80.0-100.0); MEAN PLATELET VOLUME 8.3 fL (7.4-10.4); MONOCYTES 9.3 % (2-11); PLATELET COUNT 465 10x3/uL (130-400); RBC 2.92 10x6/uL (4.00-5.40); WBC 4.3 10x3/uL (4.8-10.8)
[2020-05-18 05:01] LABS: ALBUMIN 2.6 g/dL (3.4-5.0); ALKALINE PHOSPHATASE 338 U/L (30-120); ALT (SGPT) 92 U/L (10-68); BILIRUBIN - TOTAL 0.39 mg/dL (0.2-1.3); CALC OSMOLALITY 273 mosm/kg (275-300); CALCIUM 8.8 mg/dL (8.5-10.1); CARBON DIOXIDE 34.7 mmol/L (21.0-32.0); CHLORIDE - SERUM 102 mmol/L (98-107); CREATININE - SERUM 0.7 mg/dL (0.6-1.3); GLUCOSE 85 mg/dL (74-106); PHOSPHOROUS 4.3 mg/dL (2.5-4.9); POTASSIUM - SERUM 3.7 mmol/L (3.5-5.1); PROTEIN - SERUM 6.5 g/dL (6.4-8.2); SODIUM 138 mmol/L (136-145); UREA NITROGEN 11 mg/dL (7-18); eGFR NON AFRICAN AMERICAN > 90 mL/min (90-120)
[2020-05-18 09:10] VITALS: BP 100/63
[2020-05-18 12:40] VITALS: BP 110/71
--- NOTE | 2020-05-18 13:31 | MORECARE ---
CASE MANAGEMENT DISCHARGE SUMMARY PATIENT: ALLY CHIN UNIT: [id number] ADM DATE: 05/07/20 AGE: 54 : 67 SEX: F ROOM/BED: D.2214 AUTHOR: SHANONDOC PHYSICIAN: REFERRING PHYSICIAN: NICOLE STERLING MD DATE OF SERVICE: 05/18/20 Discharge Plan Patient Name: ALLY CHIN Facility: [facility]:[place] : 1965 Planned Disposition: Anticipated Discharge Date: Discharge Date: Expected LOS: Initial Reviewer: [email or web address] Initial Review Date: 05/08/2020 Generated: 05/18/20 2:31 pm Comments DCP- Discharge Planning Updated by [id number]: Sherley Barriga on 05/18/20 12:[address] spoke with Katy at [facility] and she stated that she has been approved clinically and waiting on bank statements. Hope to get her there tomorrow CM to follow DCP- Discharge Planning Updated by [id number]: Sherley Barriga on 05/17/20 11:[address] I CALLED [facility] AND SPOKE WITH KATY ([phone]) ABOUT REFERRAL, THEY SAID THAT THEY WERE REVIEW FINACIALS. SHE WILL GET BACK WITH ME DCP- Discharge Planning Updated by [id number]: Sherley Barriga on 05/17/20 11:[address] LATE ENTRY 05/16/20- ROBIN WITH [facility] HAS DENIED HER WITH ALL OF HER FACILITIES DCP- Discharge Planning Updated by [id number]: Izzy Moore on 05/13/20 1:[address] CM faxed the following Nursing Facilities for a [place] Medicaid bed: [facility] attn: [facility] ([facility]) attn: Miriam Lama, [facility], [facility] ([place]). The patient is in agreement to going to any facility that will accept her. I spoke to her sisters and made them aware that if a nursing facility cannot be found, the family would be responsible to take her in. Miriam called back and states the facility cannot accept the patient. The patient does not want to go back to [facility]/Rehab, [facility] is not accepting patients at this time. DCP- Discharge Planning Updated by [id number]: Izzy Teresa on 05/12/20 3:[address] 05/09: CM met with patient regarding DC plans. Patient states that she currently lives in an apartment, but is having her sisters close it out today. CM spoke with patient about HHS, Rehab, OP Therapy, SNF.because she wants to go into Rehab. CM encouraged patient to participate with physical therapy. Patient uses a cane. Denies the needs for HHS, because she states she can't take care of herself. Patient called her sister, Yvonne Jasmine ([phone]), who states neither of the two sisters can take her into their homes, due to their health problems. PCP: Dr. garcía. [facility]. 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 CM contacted [facility], spoke with Gertrude and faxed required information. CM will continue to work on Rehab at this time. 04/09: faxed additional information to [facility].. 04/10: Faxed additional information to Gertrude with [facility]. DCP- Discharge Planning Updated by [id number]: Izzy Moore on 05/12/20 3:[address] CM was contacted by Gertrude with [facility] and states the facility cannot accept patient due to her not participating with physical therapy. CM contacted patient's sister, Yvonne Jasmine and Radha Ca, via speaker phone and informed them of same. CM spoke with both sister's regarding further DC plans. Informed both that the patient has been denied at [facility] and that this time, if they are unwilling to take the patient into their homes, then we need to discuss skilled nursing fdc. Per Yvonne (sister), request that CM attempt to find placement in any nursing facility in [place]. CM will begin to blanket fax to the facilities in [place]. DCPIA - Discharge Planning Initial Assessment Updated by [id number]: Izzy Moore on 05/12/20 7:37 pm * Is the patient Alert and Oriented? Yes * PCP Dr. García * [facility] * Preadmission Environment Home Alone * ADLs Independent * List name and contact numbers for known caregivers / representatives who currently or will assist patient after discharge: Yvonne Jasmine (sister) [phone] Radha Lannyw sister) [phone] * Verbal permission to speak to the caregivers and representatives has been obtained from the patient. Yes * Please name any agencies selected above. [address] * Additional services required to return to the preadmission environment? Yes * Can the patient safely return to the preadmission environment? No * Has this patient been hospitalized within the prior 30 days at any hospital? No Coverage Notice Reviewer: [id number] Chris Moore Notice Issued Date-Time: 05/09/2020 8:45 Notice Type: Patient Choice Letter Notice Delivered To: Patient Relationship to Patient: Self Drycleaner Name: Ally Chin Delivery Method: HAND - Hand Delivered Stephany Days: Prior Verbal Notification: Recipient Understood Notice: Yes Recipient Signature: Yes Med Rec Note Co-signed by Attending: Coverage Notice Comment: Patient choice for [facility] Last DP export: 05/17/20 2:24 p Patient Name: ALLY CHIN Page [id number] at 1331 All edits/amendments must be made on the electronic document DICTATION DATE: 05/18/20 1331 LAP MACHINE OPERATOR: DELFINO 05/18/20 1331 RPT#: [id number] DC DATE: STATUS: ADM IN [facility] [address] [place] [address] END OF REPORT
--- NOTE | 2020-05-18 14:34 | NUR ---
CONTINUES TO HAVE RED/RASH BUTTOCKS/LOWER BACK. NYSTATIN IS BEING USED.
[2020-05-18 17:15] VITALS: BP 103/69
--- NOTE | 2020-05-18 19:18 | NUR ---
PT LYING IN BED. DAY SHIFT NURSE JUST ADMINISTERED PAIN MEDICINE. BEDSIDE SHIFT REPORT COMPLETED. CL IN REACH. PT DENIES NEEDS AT THIS TIME. BED IN LOW SIDE RAILS X2. PT REFUSES SCD'S. LUNGS CLEAR. BOWEL ACTIVE X4. WILL CONTNUE TO MONITOR.
[2020-05-18 20:00] VITALS: BP 96/60
[2020-05-19] VITALS: BP 93/60
--- NOTE | 2020-05-19 03:42 | NUR ---
I have reviewed this patient and I concur with the Shift Assessment completed by the Licensed Practical Nurse today this shift.
[2020-05-19 04:00] VITALS: BP 85/55
--- NOTE | 2020-05-19 04:19 | NUR ---
bp 99/68 left arm
[2020-05-19 07:03] LABS: BASOPHILS 0.5 % (0-2); EOSINOPHILS 3.6 % (0-7); HEMATOCRIT 29.2 % (36.0-48.0); HEMOGLOBIN 9.2 g/dL (12-16); IMMATURE GRANULOCYTES 0.2 % (0-5); LYMPHOCYTES 34.1 % (15-50); MCH 30.6 pg (26.0-34.0); MCHC 31.5 g/dL (31.0-37.0); MEAN PLATELET VOLUME 8.3 fL (7.4-10.4); MONOCYTES 11.8 % (2-11); NEUTROPHILS 49.8 % (40-80); PLATELET COUNT 431 10x3/uL (130-400); RBC 3.01 10x6/uL (4.00-5.40); RDW 13.1 % (11.5-14.5); WBC 4.2 10x3/uL (4.8-10.8)
[2020-05-19 07:09] LABS: ALBUMIN 2.6 g/dL (3.4-5.0); ALKALINE PHOSPHATASE 332 U/L (30-120); BILIRUBIN - TOTAL 0.34 mg/dL (0.2-1.3); CALC OSMOLALITY 275 mosm/kg (275-300); CALCIUM 8.6 mg/dL (8.5-10.1); CARBON DIOXIDE 33.8 mmol/L (21.0-32.0); CHLORIDE - SERUM 102 mmol/L (98-107); CREATININE - SERUM 0.7 mg/dL (0.6-1.3); GLUCOSE 84 mg/dL (74-106); POTASSIUM - SERUM 4.1 mmol/L (3.5-5.1); PROTEIN - SERUM 5.7 g/dL (6.4-8.2); SODIUM 139 mmol/L (136-145); UREA NITROGEN 10 mg/dL (7-18); eGFR NON AFRICAN AMERICAN > 90 mL/min (90-120)
[2020-05-19 07:10] LABS: ALT (SGPT) 68 U/L (10-68)
--- NOTE | 2020-05-19 07:31 | NUR ---
PATIENT RESTING IN BED, EYES CLOSED. RESPIRATIONS EVEN NON LABORED. NO SIGNS ON DISTRESS NOTED. SIDE RAILS UP. CALL LIGHT IN REACH. WILL CONTINUE TO MONITOR FOR SAFETY.
--- NOTE | 2020-05-19 07:41 | NUR ---
I have reviewed this patient and I concur with the Shift Assessment completed by the Licensed Practical Nurse today this shift.
--- NOTE | 2020-05-19 08:39 | NUR ---
Nutrition follow-up: Pt receiving a regular diet with po intake 50-75% of meals Labs reviewed Wt: 136# +BM PO intake fair to good Will continue to provide food choices and honor food preferences. RDN following.
[2020-05-19] MEDS ORDERED: MS CONTIN15 MG PO (09:21)
--- NOTE | 2020-05-19 09:39 | NUR ---
PATIENT AWAKE, ALERT AND ORIENTED. RESTING QUIETLY IN BED EATING BREAKFAST. RESPIRATIONS EVEN NON LABORED. NO SIGNS OF DISTRESS NOTED. AM MEDS TOLERATED WELL. REDDEND AREA AND LEFT BUTTOCKS AND LOWER BACK. NYSTATIN OINTMENT APPLIED. NO IV, REMOVED. DENIES FUTHER NEEDS. SIDE RAILS UP. CALL LIGHT IN REACH. WILL CONTINUE TO MONITOR FOR SAFETY.
--- NOTE | 2020-05-19 11:03 | MORECARE ---
CASE MANAGEMENT DISCHARGE SUMMARY PATIENT: ALLY CHIN UNIT: [id number] ADM DATE: 05/07/20 AGE: 54 : 67 SEX: F ROOM/BED: D.2214 AUTHOR: SHANONDOC PHYSICIAN: REFERRING PHYSICIAN: NICOLE STERLING MD DATE OF SERVICE: 05/19/20 Discharge Plan Patient Name: ALLY CHIN Facility: [facility]:[place] : 1965 Planned Disposition: Anticipated Discharge Date: Discharge Date: Expected LOS: Initial Reviewer: [email or web address] Initial Review Date: 05/08/2020 Generated: 05/19/20 12:03 pm Comments DCP- Discharge Planning Updated by [email or web address]: Sherley Nithya on 05/19/20 9:[address] PATIENT HAS BEEN ACCEPTED TO [facility] TODAY, SHE WILL GO TO THERE TODAY, SHE 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 HER SISTER IS AWARE AND THEY WILL PICK HER UP AROUND 11:30 DCP- Discharge Planning Updated by [email or web address]: Sherley Barriga on 05/18/20 12:[address] spoke with Katy at [facility] facility and she stated that she has been approved clinically and waiting on bank statements. Hope to get her there tomorrow CM to follow DCP- Discharge Planning Updated by [id number]: Sherley Nithya on 05/17/20 11:[address] I CALLED [facility] AND SPOKE WITH KATY ([phone]) ABOUT REFERRAL, THEY SAID THAT THEY WERE REVIEW FINACIALS. SHE WILL GET BACK WITH ME DCP- Discharge Planning Updated by [email or web address]: Sherley Barriga on 05/17/20 11:[address] LATE ENTRY 05/16/20- ROBIN WITH [facility] HAS DENIED HER WITH ALL OF HER FACILITIES DCP- Discharge Planning Updated by [email or web address]: Izzy Moore on 05/13/20 1:[address] CM faxed the following Nursing Facilities for a residential Medicaid bed: [facility] attn: [facility] ([facility]) attn: Miriam Lama, [facility], [facility], [facility] ([place]). The patient is in agreement to going to any facility that will accept her. I spoke to her sisters and made them aware that if a nursing facility cannot be found, the family would be responsible to take her in. Miriam called back and states the facility cannot accept the patient. The patient does not want to go back to [facility] is not accepting patients at this time. DCP- Discharge Planning Updated by [email or web address]: Izzy Moore on 05/12/20 3:[address] 05/09: CM met with patient regarding DC plans. Patient states that she currently lives in an apartment, but is having her sisters close it out today. CM spoke with patient about HHS, Rehab, OP Therapy, SNF.because she wants to go into Rehab. CM encouraged patient to participate with physical therapy. Patient uses a cane. Denies the needs for HHS, because she states she can't take care of herself. Patient called her sister, Yvonne Jasmine ([phone]), who states neither of the two sisters can take her into their homes, due to their health problems. PCP: Dr. garcía. [facility]. 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 CM contacted [facility], spoke with Gertrude and faxed required information. CM will continue to work on Rehab at this time. 04/09: faxed additional information to [facility].. 04/10: Faxed additional information to Gertrude with [facility]. DCP- Discharge Planning Updated by [id number]: Izzy Moore on 05/12/20 3:[address] CM was contacted by Gertrude with [facility] and states the facility cannot accept patient due to her not participating with physical therapy. CM contacted patient's sister, Yvonne Jasmine and Radha Ca, via speaker phone and informed them of same. CM spoke with both sister's regarding further DC plans. Informed both that the patient has been denied at [facility] and that this time, if they are unwilling to take the patient into their homes, then we need to discuss [facility]. Per Yvonne (sister), request that CM attempt to find placement in any nursing facility in [place]. CM will begin to blanket fax to the facilities in [place]. DCPIA - Discharge Planning Initial Assessment Updated by [id number]: Izzy Moore on 05/12/20 7:37 pm * Is the patient Alert and Oriented? Yes * PCP Dr. García * Pharmacy [facility] * Preadmission Environment Home Alone * ADLs Independent * List name and contact numbers for known caregivers / representatives who currently or will assist patient after discharge: Yvonne Jasmine (sister) [phone] Radha Caw sister) [phone] * Verbal permission to speak to the caregivers and representatives has been obtained from the patient. Yes * Please name any agencies selected above. [address] * Additional services required to return to the preadmission environment? Yes * Can the patient safely return to the preadmission environment? No * Has this patient been hospitalized within the prior 30 days at any hospital? 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 Name: Ally Chin Delivery Method: HAND - Hand Delivered Stephany Days: Prior Verbal Notification: Recipient Understood Notice: Yes Recipient Signature: Yes Med Rec Note Co-signed by Attending: Coverage Notice Comment: Patient choice for [facility] Last DP export: 05/18/20 12:31 p Patient Name: ALLY CHIN Page [id number] at 1103 All edits/amendments must be made on the electronic document DICTATION DATE: 05/19/20 1103 BULK FLUIDS HANDLER: DELFINO 05/19/20 1103 RPT#: [id number] DC DATE: STATUS: ADM IN [facility] [address] [place] [address] END OF REPORT
[2020-05-19 11:05] VITALS: BP 94/68
--- NOTE | 2020-05-19 11:34 | NUR ---
DISCHARGE EDUCATION PROVIDED BOTH WRITTEN AND VERBAL. VERBALIZED UNDERSTANDING DENIES FUTHER QUESTIONS. MEDS GIVEN BACK TO PATIENT FROM PHARMACY BY BATSHEVA. PAPERWORK TAKEN BACK TO PHARMACY BY BATSHEVA. REPORT CALLED TO [facility]. 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
--- NOTE | 2020-05-19 13:41 | NUR ---
PATIENT DC TO REHAB WITH ALL BELONGINGS.
--- NOTE | 2020-05-19 16:35 | NUR ---
OT NOTE: PT COMPLETED SIDE ROLLING WITH SBA.PT COMPLETED EOB SITTING WITH CGA. PT COMPLETED FACE/HAND HYGIENE WITH SETUP. [id number] THANK YOU,PETER IRIZARRY
--- NOTE | 2020-05-20 11:53 | MORECARE ---
CASE MANAGEMENT DISCHARGE SUMMARY PATIENT: ALLY CHIN UNIT: [id number] ADM DATE: 05/07/20 AGE: 54 : 67 SEX: F ROOM/BED: D.2214 AUTHOR: SHANON,DOC PHYSICIAN: REFERRING PHYSICIAN: NICOLE STERLING MD DATE OF SERVICE: 05/20/20 Discharge Plan Patient Name: ALLY CHIN Facility: [facility]:[place] : 1965 Planned Disposition: Anticipated Discharge Date: Discharge Date: 05/19/2020 Expected LOS: Initial Reviewer: [id number] Initial Review Date: 05/08/2020 Generated: 05/20/20 12:53 pm DCP- Discharge Planning Updated by [id number]: Sherley Barriga on 05/19/20 9:[address] PATIENT HAS BEEN ACCEPTED TO [facility] TODAY, SHE WILL GO TO THERE TODAY, 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 HER SISTER IS AWARE AND THEY WILL PICK HER UP AROUND 11:30 DCP- Discharge Planning Updated by [email or web address]: Sherley Barriga on 05/18/20 12:[address] spoke with Katy at [facility] facility and she stated that she has been approved clinically and waiting on bank statements. Hope to get her there tomorrow CM to follow DCP- Discharge Planning Updated by [email or web address]: Sherley Barriga on 05/17/20 11:[address] I CALLED [facility] AND SPOKE WITH KATY ([phone]) ABOUT REFERRAL, THEY SAID THAT THEY WERE REVIEW FINACIALS. SHE WILL GET BACK WITH ME DCP- Discharge Planning Updated by [email or web address]: Sherley Barriga on 05/17/20 11:[address] LATE ENTRY 05/16/20- ROBIN WITH [facility] HAS DENIED HER WITH ALL OF HER FACILITIES DCP- Discharge Planning Updated by [id number]: Izzy Moore on 05/13/20 1:[address] CM faxed the following Nursing Facilities for a skilled nursing Medicaid bed: [facility] attn: [facility] ([facility]) attn: Miriam Lama, [facility], [facility] ([place]). The patient is in agreement to going to any facility that will accept her. I spoke to her sisters and made them aware that if a nursing facility cannot be found, the family would be responsible to take her in. [place] called back and states the facility cannot accept the patient. The patient does not want to go back to [facility] is not accepting patients at this time. DCP- Discharge Planning Updated by [email or web address]: Izzy Moore on 05/12/20 3:[address] 05/09: CM met with patient regarding DC plans. Patient states that she currently lives in an apartment, but is having her sisters close it out today. CM spoke with patient about HHS, Rehab, OP Therapy, SNF.because she wants to go into Rehab. CM encouraged patient to participate with physical therapy. Patient uses a cane. Denies the needs for HHS, because she states she can't take care of herself. Patient called her sister, Yvonne Jasmine ([phone]), who states neither of the two sisters can take her into their homes, due to their health problems. PCP: Dr. garcía. [facility]acy[facility]. 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 CM contacted [facility], spoke with Gertrude and faxed required information. CM will continue to work on Rehab at this time. 04/09: faxed additional information to [facility].. 04/10: Faxed additional information to Gertrude with [facility]. DCP- Discharge Planning Updated by [id number]: Izzy Moore on 05/12/20 3:[address] CM was contacted by Gertrude with [facility] and states the facility cannot accept patient due to her not participating with physical therapy. CM contacted patient's sister, Yvonne Jasmine and Radha Ca, via speaker phone and informed them of same. CM spoke with both sister's regarding further DC plans. Informed both that the patient has been denied at [facility] and that this time, if they are unwilling to take the patient into their homes, then we need to discuss [facility]. Per Yvonne (sister), request that CM attempt to find placement in any nursing facility in [place]. CM will begin to blanket fax to the facilities in [place]. DCPIA - Discharge Planning Initial Assessment Updated by [email or web address]: Izzy Moore on 05/12/20 7:37 pm * Is the patient Alert and Oriented? Yes * PCP Dr. García * [facility]acy [facility] * Preadmission Environment Home Alone * ADLs Independent * List name and contact numbers for known caregivers / representatives who currently or will assist patient after discharge: Yvonne Jasmine (sister) [phone] Radha Lannyw sister) [phone] * Verbal permission to speak to the caregivers and representatives has been obtained from the patient. Yes * Please name any agencies selected above. [address] * Additional services required to return to the preadmission environment? Yes * Can the patient safely return to the preadmission environment? No * Has this patient been hospitalized within the prior 30 days at any hospital? No Coverage Notice Reviewer: [id number] - Izzy Moore Notice Issued Date-Time: 05/09/2020 8:45 Notice Type: Patient Choice Letter Notice Delivered To: Patient Relationship to Patient: Self Site Superintendent Name: Ally Chin Delivery Method: HAND - Hand Delivered Stephany Days: Prior Verbal Notification: Recipient Understood Notice: Yes Recipient Signature: Yes Med Rec Note Co-signed by Attending: Coverage Notice Comment: Patient choice for [facility] Last DP export: 05/19/20 10:03 a Patient Name: ALLY CHIN Page [id number] at 1153 All edits/amendments must be made on the electronic document DICTATION DATE: 05/20/20 1153 WAXING MACHINE OPERATOR: DELFINO 05/20/20 1153 RPT#: [id number] DC DATE:05/19/20 STATUS: DIS IN [facility] [address] [place] [address] END OF REPORT
== END 2020-05-19 13:41 | DRG 481 ==
LOC: D.ER 17:28 → D.MS 20:05 → D.ER 20:19 → D.MS 05-19 13:41
PROVIDERS: Emergency Medicine; Family Medicine; Orthopaedic Surgery; ADMIT Emergency Medicine; ATTEND Emergency Medicine
PROC: 0QH736Z Insertion of Intramedullary Internal Fixation Device into Left Upper Femur, Percutaneous Approach (ICD-10-PCS; principal; 2020-05-08 12:20)
DX: S72.145A Nondisplaced intertrochanteric fracture of left femur, initial encounter for closed fracture (principal); E87.1 Hypo-osmolality and hyponatremia; F17.203 Nicotine dependence unspecified, with withdrawal; W19.XXXA Unspecified fall, initial encounter; I10 Essential (primary) hypertension; F41.9 Anxiety disorder, unspecified; G89.29 Other chronic pain; S50.12XA Contusion of left forearm, initial encounter; J44.9 Chronic obstructive pulmonary disease, unspecified; D64.9 Anemia, unspecified; F15.10 Other stimulant abuse, uncomplicated; Z86.73 Personal history of transient ischemic attack (TIA), and cerebral infarction without residual deficits